=== PATIENT | female | born 1950 | race Caucasian/White ===

== ENCOUNTER 2020-08-16 12:04 | Outpatient (CLI) | payer MEDICARE, SELFPAY ==
[2020-08-16 08:26] LABS: EDCOVIDSCREEN Negative (Negative)
== END 2020-08-16 12:05 | disposition home or self-care (01) ==
LOC: ANHSURGERY 08-22 12:04
PROVIDERS: PCP Family Medicine; Visit Provider Urology
DX: Z01.812 Encounter for preprocedural laboratory examination (principal); Z20.822 Contact with and (suspected) exposure to COVID-19
CPT/HCPCS: 36415; 87426; C9803

== ENCOUNTER 2020-08-17 01:33 | Day surgery (SDC) | payer MEDICARE, SELFPAY ==
[2020-08-15 13:12] VITALS: BMI 23.8
--- NOTE | ~2020-08-17 | XR_ITS ---
EXAMINATION: XR abdomen/kub 1V DATE: 08/17/2020 10:26 INDICATION: Renal calculi. TECHNIQUE: A supine view of the abdomen on 2 radiographs was obtained. COMPARISON: None. FINDINGS: There is a large volume of stool in the colon. There are approximately 4 densities measurin g up to 5 mm overlying left kidney lower pole that may be stones. There is a 3 mm calcification in le ft pelvis. There is a phlebolith in right pelvis. IMPRESSION: 1. 3 mm calcification in left pelvis that may be a phlebolith or a stone at the left ureterovesicular junction. 2. Left kidney stones. Reviewed, dictated and finalized at location A.
--- NOTE | ~2020-08-17 | XR_ITS ---
EXAMINATION: XR retrograde pyelo w/stent LT DATE: 08/17/2020 11:40 INDICATION: Renal stone. Preop ESWL. TECHNIQUE: Fluoroscopic images from a left internal ureteral stent placement are submitted for review . 58 seconds of fluoroscopy time. FINDINGS: No prior studies for comparison. There is a left double-J internal ureteral stent projecting in expected position, with proximal Lilly loop at the level of the renal pelvis and distal loop in the pelvis within the bladder lumen. IMPRESSION: 1. Left internal ureteral stent placement. Please refer to real-time procedural findings for detail s. Reviewed, dictated and finalized at location B. IMPRESSION: 1. Left internal ureteral stent placement. Please refer to real-time procedur al findings for details.
[2020-08-17 08:55] VITALS: BP 141/62; PULSE 100; RESP 16; TEMP 36.3; O2SAT 97
[2020-08-17] MEDS: ACETAMINOPHEN 500 MG TABLET 1000 MG PO (09:18)
[2020-08-17] MEDS: LACTATED RINGERS 1,000 ML 30 ML IV CONT ×2 (09:35→11:41)
--- NOTE | 2020-08-17 09:52 | P.PNAN_ITS ---
Anes - Initial Pre Proc Eval Procedure: Operation Date: 08/17/20 10:45 Proposed Procedures p Cystoscopy, Left Retrograde Pyelogram, Left Ureteroscopy, with Stone Extraction, Left Stent Placement, - Isiah Delaney MD s Possible Holmium Laser Procedure - Isiah Delanye MD Date/Time: 08/17/20 09:52 Surgeon: Isiah Delaney MD Pre Op Diagnosis: ureteral calculus Patient Data Age: 70 Gender: F Height: 5 ft 8 in Weight: 70.4 kg Last Vital Signs Temp 36.3 C L 08/17/20 08:55 Pulse 100 08/17/20 08:55 Resp 16 08/17/20 08:55 BP 141/62 H 08/17/20 08:55 Pulse Ox 97 08/17/20 08:55 Allergies Allergy/AdvReac Type Severity Reaction Status Date / Time erythromycin base Allergy Intermediate Rash Verified 08/17/20 09:08 [From [employer]] Home Medications Medication Instructions Recorded Confirmed Type aspirin [Adult Aspirin EC Low 81 mg PO DAILY 08/15/20 08/17/20 History Strength] ciprofloxacin HCl 500 mg PO BID 08/15/20 08/17/20 History clonazepam 0.25 mg PO DAILY PRN 08/15/20 08/17/20 History lactobacillus combination no.8 3 cell PO DAILY 08/15/20 08/17/20 History [Adult Probiotic] montelukast 10 mg PO DAILY 08/15/20 08/17/20 History sulfasalazine 500 mg PO BID 08/15/20 08/17/20 History tamsulosin 0.4 mg PO DAILY 08/15/20 08/17/20 History trazodone 50 mg PO HS 08/15/20 08/17/20 History Patient hx anesthesia problems: none Family hx anesthesia problems: none PMFSH Past Medical History Medical History Anxiety Social History Social History Smoking status: Never smoker Alcohol intake: current Drinks per week: 2 Substance use: never Living arrangements: with family Additional living arrangements comments: HUSB Spiritual care concerns: No Anes - Eval Final PreProcedure Day of Procedure 08/17/20 09:52 Patient weight: normal Heart: regular rate and rhythm Lungs: clear to auscultation Airway: Mallampati scale class II Neurological: alert and oriented Last oral intake: >/= 8 hours ASA classification: II Emergent: no Anesthetic plan: proceed Anesthesia type and monitoring: general LMA and standard monitoring Informed Consent: The patient's anesthetic plan and its attendant risks and benefits were discussed with the patient/family/POA. Questions were solicited and answers provided to the satisfaction of the patient/family/POA.
--- NOTE | 2020-08-17 10:20 | SUR.PREOP ---
1020 taken to xray for kub
--- NOTE | 2020-08-17 10:40 | WPDHPUPDATE1 ---
History and Physical Update Update Date/Time: 08/17/20 10:40 History and Physical has been reviewed, including an updated exam of the patient. There are NO changes in the patient's condition. -patient with left distal ureteral stone as well as left renal stones. We will plan for left ureteroscopy, laser lithotripsy, stone extraction with possible stent insertion for the left distal ureteral stones. We will likely hold off on intervention for the left renal stones at this time. Risks, benefits, and alternatives have been discussed and questions answered. Patient agrees to proceed with procedure.
[2020-08-17] MEDS: ceFAZolin 2 GM/D5W 50 ML 2 GM/50 ML BAG IVPB (10:53)
[2020-08-17] MEDS: LIDOCAINE HCL 2% GEL UROJET 10 ML PKG MUCOUS MEM (11:34)
--- NOTE | 2020-08-17 11:37 | W.PM.PROC2 ---
Procedure Note - Detailed Date of Procedure 08/17/20 Pre-op Diagnosis ureteral calculus Post-op Diagnosis same Procedure Performed Cystoscopy, left ureteroscopy, retrograde pyelogram, stone extraction, stent insertion Surgeon Isiah Delaney MD Anesthesia general Findings -there was inflammation of the left ureteral orifice however no stone was seen in the left distal ureter -there was moderate hydronephrosis -for stones were removed from the left lower pole Description of Procedure Informed consents obtained. Patient taken the operating room. She was given preoperative IV antibiotics. She was induced anesthesia. She was placed in dorsal lithotomy position. We inserted a 22 F cystoscope through the original bladder insert the bladder there was inflammation of the left ureteral orifice consistent with presence of a stone or recent stone passage. we then advanced a wire and then a 10 coaxial dilator. We inserted a rigid ureteral scope into the distal ureter and there was no stone identified. We then switched to a flexible ureteral scope inspected the length of the ureter up to the kidney. No stones were seen in the ureter however identified multiple stones in the left lower pole. The stones were individually grasped and removed and sent as specimen. We then performed a retrograde pyelogram inspected each calyx under fluoroscopic guidance was no residual stone seen. We then inspected the length of the ureter and no stones were seen. We placed a 6 F variable length stent with a curl in renal pelvis from the bladder patient was then awakened taken recovery stable condition. -the patient will follow-up next week for ureteral stent removal -I recommend the patient undergo a renal ultrasound as well as a repeat cystoscopy in 1 to 2 months to ensure there is no hydronephrosis and to inspect the bladder to ensure that the inflammation around the left ureteral orifice has resolved. Drains No Packing No Pathology yes Complications No immediate complications Condition stable Disposition PACU
[2020-08-17 11:45] VITALS: BP 137/64; PULSE 81; RESP 16; TEMP 36.6; O2SAT 98
[2020-08-17 12:00] VITALS: BP 141/74; PULSE 72; RESP 16; O2SAT 98
[2020-08-17 12:15] VITALS: BP 143/69; PULSE 75; RESP 16; O2SAT 98
[2020-08-17 12:25] VITALS: BP 142/56; PULSE 64; RESP 14
[2020-08-17 12:55] VITALS: BP 137/57; PULSE 69; RESP 14
== END 2020-08-17 13:25 | disposition home or self-care (01) ==
PROVIDERS: PCP Family Medicine; Visit Provider Urology
PROC: (CPT 52352; principal; 2020-08-17 10:45)
DX: N20.1 Calculus of ureter (principal); F41.9 Anxiety disorder, unspecified; Z79.82 Long term (current) use of aspirin
CPT/HCPCS: 52332; 52352; 36415; 74018; 74420; 82365; 87426; 88300; A9270; C1769; C2617; C9803; J0690; J1100; J2405; J2704; J3010; J7120; Q9966

== ENCOUNTER → 2020-09-14 13:21 | Outpatient (CLI) | payer MEDICARE, SELFPAY ==
--- NOTE | ~2020-09-14 | DEXA_ITS ---
Bone Density Report Name: Kathryn Espitia Age: 70 Sex: Female Ethnicity: White Date of : 1950 Indication: postmenopausal; screening for osteoporosis; inflammatory bowel disease; prior fracture; hysterectomy; Referring Provider: AMY BOWSER Study: Bone densitometry was performed. Exam Date: September 14, 2020 Accession number: [id number] Bone Density: Region BMD T-score Z-score Classification AP Spine (L1, L2, L3) 0.762 -2.3 -0.4 Osteopenia Femoral Neck (Left) 0.616 -2.1 -0.4 Osteopenia Total Hip (Left) 0.655 -2.4 -1.0 Osteopenia Femoral Neck (Right) 0.552 -2.7 -1.0 Osteoporosis Total Hip (Right) 0.618 -2.7 -1.3 Osteoporosis Total Hip Mean 0.637 -2.6 -1.2 Osteoporosis World Health Organization criteria for BMD impression classify patients as: Normal (T-score at or above -1.0), Osteopenia (T-score between -1.0 and -2.5), or Osteoporosis (T-score at or below -2.5). 10-year Fracture Risk: FRAX not reported because: Some T-score for Spine Total or Hip Total or Femoral Neck at or below -2.5 Prior hip or vertebral fracture Clinical Information Provided by Patient: Have had a previous hip or vertebral fracture Has had a low trauma fracture Has used the following medications: Vitamin D, Calcium Has the following medical conditions: Inflammatory bowel diseases, Hysterectomy Patient maximum height was 68.5 Menopause Age: 33 Does not regularly consume dairy products Drinks caffeinated beverages Onset of menses at age 13 Number of children 2 Impression: The patient has established osteoporosis, based on the Right Total Hip T-score and the existence of a prior fracture. The patient has risk factors, including: previous fracture. Discussion: HIGH RISK OF FRACTURE. BONE DENSITY IS UNDESIRABLY LOW AT ONE OR MORE SKELETAL SITES, CONSISTENT WITH POSTMENOPAUSAL OSTEOPOROSIS. This patient's lowest T-score, in a patient who has previously fractured, meets the World Health Organization's (WHO) criteria for severe osteoporosis. In untreated patients, the risk of osteoporotic fracture increases approximately two-fold for each 1.0 SD decrease in T-score. Low bone density is not the only risk factor for fracture; also consider factors such as patient's age, frailty or poor health, risk of falling, risk of injury, previous osteoporotic fracture, family history of osteoporosis, cigarette smoking, low body weight, etc. Not everyone with low bone mineral density has osteoporosis; osteomalacia and other metabolic bone disorders should also be considered. Patients who have osteoporosis should be evaluated for specific diseases and conditions (secondary causes) that may cause or contribute to bone loss. The [place] [employer]ocrinologists (AACE) and National Osteoporosis Foundation (NOF) recommend pharmacologic
== END ==
PROVIDERS: PCP Family Medicine; Visit Provider Family Medicine
DX: Z78.0 Asymptomatic menopausal state (principal); M85.88 Other specified disorders of bone density and structure, other site; M85.852 Other specified disorders of bone density and structure, left thigh; M81.0 Age-related osteoporosis without current pathological fracture
CPT/HCPCS: 77080

== ENCOUNTER 2020-09-25 10:51 | Outpatient (CLI) | payer MEDICARE, SELFPAY ==
--- NOTE | ~2020-09-25 | XR_ITS ---
EXAMINATION: XR abdomen/kub 1V INDICATION: Left ureteral stone TECHNIQUE: Supine views of the abdomen were obtained on 2 radiographs. COMPARISON: 08/17/2020 FINDINGS: There is a stable 3 mm calcification in the left pelvis. Bowel contents project over the ki dneys limiting sensitivity for renal stones. The bowel gas pattern is normal. Described large stool t here are surgical changes at L4-5. IMPRESSION: 1. Unchanged 3 mm stone of the left pelvis, phlebolith versus left ureterovesicular junction stone. Reviewed, dictated and finalized at location B. IMPRESSION: 1. Unchanged 3 mm stone of the left pelvis, phlebolith versus left ureterovesic ular junction stone.
== END 2020-09-25 10:52 | disposition home or self-care (01) ==
PROVIDERS: PCP Family Medicine; Visit Provider Urology
DX: N20.1 Calculus of ureter (principal)
CPT/HCPCS: 74018

== ENCOUNTER 2021-03-04 14:31 | Outpatient (CLI) | payer MEDICARE, SELFPAY ==
--- NOTE | ~2021-03-04 | XR_ITS ---
EXAMINATION: XR abdomen/kub 1V INDICATION: Right flank pain TECHNIQUE: Supine views of the abdomen were obtained on 2 radiographs. COMPARISON: CT from today FINDINGS: There is a subtle 3 mm right pelvic calcification at the expected location of the right ure terovesicular junction. A phlebolith is noted in the left pelvis. The bowel gas pattern is normal. Th ere appear to be changes of prior pelvic fracture at the pubic symphysis. Changes of fusion procedure are noted at L4-5. A calcified nodule of the right lower lobe is consistent with old granulomatous d isease. IMPRESSION: 1. Subtle 3 mm calcification on the right pelvis at the expected location of the ureterovesicular merlin ction, likely corresponding to the stone identified on today's CT. Reviewed, dictated and finalized at location F. ERY HAND IMPRESSION: 1. Subtle 3 mm calcification on the right pelvis at the expected location of th e ureterovesicular junction, likely corresponding to the stone identified on to day's CT.
--- NOTE | ~2021-03-04 | CT_ITS ---
EXAMINATION: CT abdomen pelvis wo con DATE: 03/04/2021 15:00 INDICATION: Right flank pain TECHNIQUE: Computed tomography (CT) of the abdomen and pelvis was performed without intravenous contr ast. The dose-length product (DLP) was 325.89 mGy-cm. Automated exposure control and iterative recons truction technique were employed. COMPARISON: None FINDINGS: Minimal dependent atelectasis is present in the lung bases. The heart size is normal. Calci fied nodules of the visualized lower lobes are consistent with old granulomatous disease. The liver, spleen, pancreas, gallbladder, and adrenal glands are normal. There is a 3 mm stone at the right uret erovesicular junction which causes moderate right hydroureteronephrosis. The left kidney is unremarka ble. No pathologically enlarged abdominal or pelvic lymph nodes are identified. There is no free intr aperitoneal gas or evidence of bowel obstruction. Colonic diverticulosis is present without evidence of diverticulitis. The appendix is normal. Cysts of the left ovary measure up to 2.6 cm. IMPRESSION: 1. 3 mm stone at the right ureterovesicular junction causing moderate right hydroureteronephrosis. Reviewed, dictated and finalized at location F. 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 3 mm stone at the right ureterovesicular junction causing moderate right hyd roureteronephrosis.
== END 2021-03-04 14:32 | disposition home or self-care (01) ==
PROVIDERS: PCP Family Medicine; Visit Provider Nurse Practitioner Adult Health
DX: R10.9 Unspecified abdominal pain (principal); N20.1 Calculus of ureter
CPT/HCPCS: 74018; 74176

== ENCOUNTER 2021-03-06 00:41 | Day surgery (SDC) | payer MEDICARE, SELFPAY ==
[2021-03-05 09:50] VITALS: BMI 23.4
--- NOTE | 2021-03-05 09:55 | PC.NURSE ---
Report to the Outpatient Waiting Room, entrance under the green pavilion located off [facility], at time _1045 on date __03/06/21 . OR Time: ___1245 . - You and your visitor will be asked a series of questions to screen for COVID 19 for your protection. - A mask is required within the hospital. - Only one visitor is allowed at this time. Patient visitors will be guided where to wait when not with patient. Preoperative COVID Testing Requirements: No COVID Test needed if: (proof is required; if not received patient will have Rapid Test prior to entry) - Patient has received COVID Vaccine at least 14 days prior to procedure date or - Patient has positive COVID test result within last 90 days of surgery date. COVID Test needed if above criteria is not met If not COVID vaccinated a COVID test must be conducted within 72 hours of surgery and patient is asked to isolate self from time of testing until procedure. You will go to the [facility] for your COVID testing. The [facility] site is located at the corner of [address] [facility]. You will only be called if COVID results are positive and your surgeon may reschedule your elective surgery date. Patients may have clear liquids (water, carbonated beverages, clear teas, apple juice) until 3 hours prior to surgery with a maximum of 20 ounces. (0945 AM) - No food from midnight until time of surgery - Infants may have breast milk until 4 hours before surgery, formula 6 hours prior to surgery. - Children will be allowed to drink immediately following surgery. If applicable, please bring a bottle or sippy cup to assist with drinking. Juice, water, soda, and popsicles are readily available. For infants on formula, please bring formula the day of surgery. Pacifiers are allowed. Take the following medications with a SIP of water the morning of surgery: CLONAZEPAM Medications to discontinue per physician ALL VITAMINS AND SUPPLEMENTS Date to take last dose__03/05/21 Please no make-up, nail iranian, hairspray, perfume, deodorant, or body powder the day of surgery. No jewelry (including any body piercings) or valuables the day of surgery, leave them at home. Please take a shower or bath the night before, or the morning of, surgery with an antibacterial soap. Wear comfortable, loose fitting clothing. Children are encouraged to wear pajamas. - Jewelry must be removed prior to entering the operating room. Rings and piercings that are not removed may be cut off. - The hospital will not accept responsibility for valuables. - Please leave all valuables, including medications, at home the day of surgery. If you are going home after surgery, a licensed ice delivery driver must drive you home. - NO public transportation without another adult. - We recommend that an adult stay with you for 24 hours following discharge. - We also recommend that you do not drive, make important decision, drink alcoholic beverages, or take any drugs that were not prescribed by your health care provider for at least 24 hours after your discharge time. For Pediatric surgeries, we recommend two adults accompany the child home (only one inside the building at this time). Follow any additional instructions given to you from your surgeon. Telephone instructions given to ___PT and asked if any additional questions and then verbalized understanding. Patient advised to call surgeon office or pre surgery nurse liaison [phone] if any additional questions.
[2021-03-06] VITALS (7 sets, daily range): BP systolic 113–161; BP diastolic 50–71; PULSE 63–84; RESP 14–18; TEMP 36.8; O2SAT 96–100
--- NOTE | ~2021-03-06 | XR_ITS ---
EXAMINATION: XR fluoroscopy no charge EXAM DATE: 03/06/2021 13:54 INDICATION: Ureteroscopy With Right Side Stone Extract . TECHNIQUE: Fluoroscopy used during XR fluoroscopy no charge performed by Dr. Xavier Rizo MD. Radiologist was not present for the imaging or procedure. Total fluoroscopic time of 12 seconds. T he DAP for this procedure was 0.1 mGym2. A total of 6 images sent to PACS from the exam. FINDINGS: Images demonstrate cannulation of the right ureter and lumbar fusion hardware. Correlate with procedure note. IMPRESSION: Fluoroscopy used during right ureteral stone extraction. Reviewed, dictated and finalized at location A. 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
--- NOTE | 2021-03-06 10:47 | WPDANESEPPF ---
Anes - Initial Pre Proc Eval Procedure: Operation Date: 03/06/21 12:45 Proposed Procedures p Cystoscopy, Ureteroscopy, Right Retrograde Pyelogram, with Stone Extraction, Possible Stent Placement, - Xavier Rizo MD s Possible Holmium Laser Procedure - Xavier Rizo MD <Boyd Wilson MD - Last Filed: 03/10/21 15:36> Date/Time: 03/06/21 10:47 <Boyd Wilson MD - Last Filed: 03/10/21 15:36> Surgeon: Xavier Rizo MD <Boyd Wilson MD - Last Filed: 03/10/21 15:36> Pre Op Diagnosis: right ureteral stone <Boyd Wilson MD - Last Filed: 03/10/21 15:36> Patient Data Age: 70 Gender: F Height: 1.73 m Weight: 70 kg <Boyd Wilson MD - Last Filed: 03/10/21 15:36> Allergies Allergy/AdvReac Type Severity Reaction Status Date / Time erythromycin base Allergy Intermediate Rash Verified 03/06/21 12:11 [From Ilosone] <Boyd Wilson MD - Last Filed: 03/10/21 15:36> Home Medications Medication Instructions Recorded Confirmed Type aspirin 81 mg PO HS 08/15/20 03/06/21 History ciprofloxacin HCl 500 mg PO BID 08/15/20 03/05/21 History clonazepam 0.25 mg PO DAILY PRN 08/15/20 03/06/21 History lactobacillus combination no.8 3 cell PO DAILY 08/15/20 03/05/21 History sulfasalazine 500 mg PO QAM 08/15/20 03/05/21 History tamsulosin 0.4 mg PO DAILY PRN 08/15/20 03/05/21 History trazodone 25 mg PO HS PRN 08/15/20 03/05/21 History alendronate 70 mg PO WEEKLY 03/05/21 03/05/21 History calcium carbonate-vitamin D2 1 tablet PO QAM 03/05/21 03/05/21 History elderberry fruit 200 mg PO QAM 03/05/21 03/05/21 History levocetirizine 5 mg PO QAM 03/05/21 03/05/21 History multivitamin 1 tablet PO DAILY 03/05/21 03/06/21 History cephalexin 500 mg PO Q8H #9 cap 03/06/21 Rx hydrocodone-acetaminophen 1 - 2 tablet PO Q6H PRN #20 tablet 03/06/21 Rx <Body Wilson MD - Last Filed: 03/10/21 15:36> Patient hx anesthesia problems: none <Manjinder Roche DO - Last Filed: 03/06/21 12:09> Family hx anesthesia problems: none <Manjinder Roche DO - Last Filed: 03/06/21 12:09> Results Review: All pre-operative results and documents have been reviewed as part of the pre-operative evaluation. <Boyd Wilson MD - Last Filed: 03/10/21 15:36> PMFSH Past Medical History Medical History: Medical History Anxiety <Boyd Wilson MD - Last Filed: 03/10/21 15:36> Social History Social History: Social History Smoking status: Former smoker Second hand tobacco smoke exposure: No Alcohol intake: current Drinks per week: 2 Substance use: never Substance use type: does not use Living arrangements: with family Additional living arrangements comments: HUSB Spiritual care concerns: No <Boyd Wilson MD - Last Filed: 03/10/21 15:36> Anes - Eval Final PreProcedure Day of Procedure 03/06/21 10:47 <Boyd Wilson MD - Last Filed: 03/10/21 15:36> Patient weight: normal <Boyd Wilson MD - Last Filed: 03/10/21 15:36> Heart: regular rate and rhythm <Boyd Wilson MD - Last Filed: 03/10/21 15:36> Lungs: clear to auscultation and normal air movement <Boyd Wilson MD - Last Filed: 03/10/21 15:36> Airway: Mallampati scale class II <Boyd Wilson MD - Last Filed: 03/10/21 15:36> Neurological: alert and oriented <Boyd Wilson MD - Last Filed: 03/10/21 15:36> Last oral intake: >/= 8 hours <Boyd Wilson MD - Last Filed: 03/10/21 15:36> ASA classification: II <Boyd Wilson MD - Last Filed: 03/10/21 15:36> Emergent: no <Boyd Wilson MD - Last Filed: 03/10/21 15:36> Anesthetic plan: proceed <Boyd Wilson MD - Last Filed: 03/10/21 15:36> Anesthesia type and monitoring: general LMA <We
[2021-03-06] MEDS: LACTATED RINGERS 1,000 ML 30 ML IV CONT (11:30)
--- NOTE | 2021-03-06 12:23 | WPDHPUPDATE1 ---
History and Physical Update Update Date/Time: 03/06/21 12:23 History and Physical has been reviewed, including an updated exam of the patient. There are NO changes in the patient's condition. Risks, benefits, and alternatives have been discussed and questions answered. Patient agrees to proceed with procedure.
[2021-03-06] MEDS: ceFAZolin 2 GM/D5W 50 ML 2 GM/50 ML BAG IVPB (13:27)
[2021-03-06] MEDS: KETOROLAC 30 MG/ML VIAL (*BKC) IV PUSH (13:49)
[2021-03-06] MEDS: LIDOCAINE HCL 2% GEL UROJET 10 ML PKG MUCOUS MEM (13:50)
--- NOTE | 2021-03-06 14:00 | W.PM.PROC2 ---
Procedure Note - Detailed Date of Procedure 03/06/21 Pre-op Diagnosis Right ureteral stone Post-op Diagnosis same Procedure Performed Cysto. right ureteroscopy with stone extraction Surgeon Xavier Rizo MD Anesthesia general Description of Procedure The patient was brought to the operative suite where she is prepped and draped in a routine sterile fashion while in the dorsal lithotomy position after the uneventful induction of a general LMA anesthetic. A 19F rigid cystoscope was placed in the bladder. The patient had no evidence of urethral stricture or bladder neck contracture. The bladder mucosa was endoscopically normal without hyperemia or neoplasm. There was a single, orthotopic ureteral orifice bilaterally. A 0.035 glidewire was advanced into the right renal pelvis under fluoroscopy. The distal ureter was dilated with an 8F/10F ureteral dilator. Ureteroscopy was undertaken with a short, tapered, semi-rigid ureteroscope and the stone was extracted with ease using a 1.9F Escape disposable stone basket. Due to the ease of this manipulation I opted not to place a ureteral stent. The patient's bladder was emptied and was taken to the recovery room having tolerated this procedure well. Estimated Blood Loss 0 Drains No Packing No Pathology yes Complications No immediate complications Condition stable Disposition PACU
--- NOTE | 2021-03-06 15:23 | SUR.PHASEII ---
DR. PURCELL INSTRUCTED FOR PATIENT TO CONTINUE CIPRO AND NOT TO FILL CEPHALEXIN SCRIPT.
== END 2021-03-06 15:30 | disposition home or self-care (01) ==
PROVIDERS: PCP Family Medicine; Visit Provider Urology
PROC: (CPT 52352; principal; 2021-03-06 12:45)
DX: N20.1 Calculus of ureter (principal); F41.9 Anxiety disorder, unspecified; Z79.82 Long term (current) use of aspirin; Z87.891 Personal history of nicotine dependence
CPT/HCPCS: 52352; 82365; 88300; A9270; C1769; J0690; J1100; J1170; J1885; J2250; J2405; J2704; J7120; Q9966

== ENCOUNTER → 2021-08-22 13:31 | Outpatient (CLI) | payer MEDICARE, SELFPAY ==
--- NOTE | ~2021-08-22 | XR_ITS ---
XR foot RT min 3V DATE: 08/22/2021 14:01 INDICATION: Right foot pain TECHNIQUE: 4 views COMPARISON: None FINDINGS: There is diffuse osteopenia. Slight plantar calcaneal enthesopathy. Degenerative changes at the tarsometatarsal joints. Hallux valgus and bunion deformity. There is mild osteoarthritis at the first metatarsophalangeal junito nt. Hammertoe deformities. No fracture or dislocation, periosteal reaction or bone destruction is detected. IMPRESSION: Osteopenia Polyarticular osteoarthritis Hallux valgus and bunion deformity Hammertoe deformities Reviewed, dictated and finalized at location A.
== END ==
PROVIDERS: PCP Family Medicine; Visit Provider Family Medicine
DX: M79.671 Pain in right foot (principal)
CPT/HCPCS: 73630

== ENCOUNTER → 2021-11-04 14:06 | Outpatient (CLI) | payer MEDICARE, SELFPAY ==
--- NOTE | ~2021-11-04 | XR_ITS ---
EXAM: XR abdomen/kub 1V DATE: 11/04/2021 14:33 HISTORY: Calculus of ureter . COMPARISON: 03/04/2021. FINDINGS: Calcified right lower lobe nodule. Normal bowel gas pattern. No organomegaly. Pelvic phleb oliths. Apparent osseous fusion between L5 and S1. Posterior and lateral hardware fusion L4-5. IMPRESSION: No radiographic evidence of nephrolithiasis. Reviewed, dictated and finalized at location K.
== END ==
PROVIDERS: PCP Family Medicine; Visit Provider Nurse Practitioner Adult Health
DX: N20.1 Calculus of ureter (principal)
CPT/HCPCS: 74018

== ENCOUNTER 2021-11-15 01:16 | Day surgery (SDC) | payer MEDICARE, SELFPAY ==
[2021-11-06 14:45] VITALS: BMI 25.1
--- NOTE | 2021-11-06 15:05 | PC.NURSE ---
Report to the Outpatient Waiting Room, entrance under the green pavilion located off [facility], at time ___30____ on date __11/15/21 . OR Time: ____929____. - You and your visitor will be asked to self-screen and do not enter if you have any COVID symptoms. - Only one visitor and NO children visitors are allowed at this time. - The patient visitor is requested to leave or wait in car when not with patient due to restrictions. - A mask is required within the hospital. Patients may have clear liquids (water, carbonated beverages, clear teas, apple juice) until 3 hours prior to surgery (0630 AM) with a maximum of 20 ounces. - No food from midnight until time of surgery - Infants may have breast milk until 4 hours before surgery, infant formula 6 hours prior to surgery. - Children will be allowed to drink immediately following surgery. If applicable, please bring a bottle or sippy cup to assist with drinking. Juice, water, soda, and popsicles are readily available. For infants on formula, please bring formula the day of surgery. Pacifiers are allowed. Take the following medications with a SIP of water the morning of surgery: BUSPIRONE Medications to discontinue per DR. REBOLLEDO - _PT STATES TO STOP ASPIRIN 11/07/21_ Medications to discontinue per ANESTHESIA - _VITAMINS/PROBIOTIC/SUPPLEMENTS 3 DAYS PRIOR TO SURGERY, Date to take last dose 11/11/21___ Please no make-up, nail lao, hairspray, perfume, deodorant, or body powder the day of surgery. No jewelry (including any body piercings) or valuables the day of surgery, leave them at home. Please take a shower or bath the night before, or the morning of, surgery with an antibacterial soap. Wear comfortable, loose fitting clothing. Children are encouraged to wear pajamas. - Jewelry must be removed prior to entering the operating room. Rings and piercings that are not removed may be cut off. - The hospital will not accept responsibility for valuables. - Please leave all valuables, including medications, at home the day of surgery. If you are going home after surgery, a licensed cement mixer driver must drive you home. - NO public transportation without another adult. - We recommend that an adult stay with you for 24 hours following discharge. - We also recommend that you do not drive, make important decision, drink alcoholic beverages, or take any drugs that were not prescribed by your health care provider for at least 24 hours after your discharge time. For Pediatric surgeries, we recommend two adults accompany the child home (only one inside the building at this time). Follow any additional instructions given to you from your surgeon. If you or anyone in your household have experienced Covid symptoms in the past week, please notify your surgeon or the nurse liaison at the phone number below for possible testing. Telephone instructions given to ____PT and asked if any additional questions and then verbalized understanding. Patient advised to call surgeon office or pre surgery nurse liaison [phone] if any additional questions.
--- NOTE | ~2021-11-15 | XR_ITS ---
EXAMINATION: XR surgery orthopedic DATE: 11/15/2021 07:57 INDICATION: Right foot surgery TECHNIQUE: Single lateral fluoroscopic image of the right midfoot was obtained during procedure perfo rmed by Dr. Forde. Radiologist was not present for the imaging or procedure. The amount of fluoros copy time used during this procedure was 0.1 minutes. COMPARISON: 08/22/2021 FINDINGS: Osteopenia. Alignment is normal. No evident fracture. Moderate polyarticular osteoarthritis throughou t the midfoot. IMPRESSION: 1. 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 Reviewed, dictated and finalized at location A.
[2021-11-15 06:20] VITALS: BP 136/78; PULSE 76; RESP 16; TEMP 36.7; O2SAT 96
[2021-11-15] MEDS: LACTATED RINGERS 1,000 ML 30 ML IV CONT (06:30)
--- NOTE | 2021-11-15 07:11 | WPDANESEPPF ---
Anes - Initial Pre Proc Eval Procedure: Operation Date: 11/15/21 07:30 Proposed Procedures p Exostectomy Right Foot - Spencer Forde JR, MD Date/Time: 11/15/21 07:11 Surgeon: Spencer Forde JR, MD Pre Op Diagnosis: painful bone spur right foot Patient Data Age: 71 Gender: F Height: 1.73 m Weight: 75 kg Last Vital Signs Temp 36.7 C 11/15/21 06:20 Pulse 76 11/15/21 06:20 Resp 16 11/15/21 06:20 BP 136/78 11/15/21 06:20 Pulse Ox 96 11/15/21 06:20 O2 Del Method Room Air 11/15/21 06:20 Allergies Allergy/AdvReac Type Severity Reaction Status Date / Time erythromycin base Allergy Intermediate Rash Verified 11/15/21 06:17 [From Ilosone] Home Medications Medication Instructions Recorded Confirmed Type aspirin 81 mg tablet,delayed 81 mg PO HS 08/15/20 11/15/21 History release lactobacillus combination no.8 3 3 cell PO DAILY 08/15/20 11/15/21 History billion cell capsule sulfasalazine 500 mg tablet 500 mg PO QAM 08/15/20 11/15/21 History trazodone 50 mg tablet 25 mg PO HS PRN Sleep 08/15/20 11/15/21 History alendronate 70 mg tablet 70 mg PO WEEKLY 03/05/21 11/15/21 History calcium carb-ergocalciferol (vit 1 tablet PO QAM 03/05/21 11/15/21 History D2) 600 mg calcium-200 unit tablet elderberry fruit 200 mg capsule 200 mg PO QAM 03/05/21 11/15/21 History levocetirizine 5 mg tablet 5 mg PO QAM 03/05/21 11/15/21 History multivitamin 1 tablet PO DAILY 03/05/21 11/15/21 History buspirone 5 mg tablet 5 mg BID-TID PRN Anxiety 11/06/21 11/15/21 History cranberry 1 cap QAM 11/06/21 11/15/21 History Patient hx anesthesia problems: none Family hx anesthesia problems: none Results Review: All pre-operative results and documents have been reviewed as part of the pre-operative evaluation. [facility] Past Medical History Medical History Anxiety Arthritis Social History Social History Smoking status: Never smoker Second hand tobacco smoke exposure: No Alcohol intake: current Drinks per week: 3 Substance use: never Substance use type: does not use Living arrangements: with family Additional living arrangements comments: HUSB Spiritual care concerns: No Anes - Eval Final PreProcedure Day of Procedure 11/15/21 07:11 Patient weight: normal Heart: regular rate and rhythm Lungs: clear to auscultation Airway: Mallampati scale class 1 Neurological: alert and oriented Last oral intake: >/= 8 hours ASA classification: II Emergent: no Anesthetic plan: proceed Anesthesia type and monitoring: general GIVS and standard monitoring Results Review: All pre-operative results and documents have been reviewed as part of the pre-operative evaluation. Informed Consent: The patient's anesthetic plan and its attendant risks and benefits were discussed with the patient/family/POA. Questions were solicited and answers provided to the satisfaction of the patient/family/POA.
--- NOTE | 2021-11-15 07:13 | WPDHPUPDATE1 ---
History and Physical Update Update Date/Time: 11/15/21 07:13 History and Physical has been reviewed, including an updated exam of the patient. There are NO changes in the patient's condition. Risks, benefits, and alternatives have been discussed and questions answered. Patient agrees to proceed with procedure.
[2021-11-15] MEDS: ceFAZolin 2 GM/D5W 50 ML 2 GM/50 ML BAG IVPB (07:21)
[2021-11-15] MEDS: LIDOCAINE HCL 2% PF INJ 5 ML VIAL 20 ML INFILTRATE (07:46)
[2021-11-15 08:05] VITALS: BP 110/57; PULSE 68; RESP 12; O2SAT 97
--- NOTE | 2021-11-15 08:18 | W.PM.PROC2 ---
Procedure Note - Detailed Date of Procedure 11/15/21 Pre-op Diagnosis Painful bone spur right foot Post-op Diagnosis Same Procedure Performed Dorsal midfoot exostectomy right foot Surgeon Spencer Forde JR, DPM Anesthesia MAC and Local Indications Pain to the dorsal midfoot secondary to a large prominent exostosis Description of Procedure PROCEDURE IN DETAIL:? Under mild sedation, the patient was brought into the operating room, placed on the operating table in supine position.? A pneumatic ankle tourniquet was placed about the patient's affected ankle.? Following monitored anesthesia care a local anesthetic block was obtained about the? foot and ankle utilizing 20 cc of a 1:1 of 2% Lidocaine plain and 0.5% Marcaine plain. The foot was then scrubbed, prepped, and draped in the usual aseptic manner.? An Esmarch bandage was then used to exsanguinate the patient's? foot and the pneumatic ankle tourniquet was then inflated. ? Surgery began in the following manner:? Attention was directed to the dorsal aspect of the 1st tarsometatarsal joint where there was a large prominent osteophyte.? The incision was made starting along the base of the 1st metatarsal and extending to the body of the medial cuneiform. The incision was continued deep down through the subcutaneous tissues using sharp and blunt dissection.? All bleeders were cauterized as necessary.? At this point, the dissection was continued down to the level of the periosteum and capsular structures overlying the 1st tarsal metatarsal joint.? A full length periosteum and capsular incision was made just medial to the extensor hallucis longus tendon.? The periosteum and capsular structures were freed from the large prominent osteophyte.? An osteotome and mallet were used to resect the large exostosis.? Next, a rongeur was used to resect any remaining sharp osseous remnants. A hernandez rasp was used to further debride and remodel the dorsal and dorsal medial aspect of the first tarsal metatarsal joint. Moreover, the wound site was then flushed with copious amounts of sterile saline.? Fluoroscopy was used to make certain that adequate resection of the osseous proliferation was performed.? Next, the periosteum and capsular structures were reapproximated with 4-0 Vicryl.? Next, the subcutaneous structures were reapproximated with 4-0 Vicryl.? Next, the skin was reapproximated and coapted utilizing 4-0 Monocryl in running subcuticular suture fashion technique. ? Upon completion of the procedure, the incision was dressed with Steri-Strips, Adaptic, 4x4s, Kerlix, and Coban.? The pneumatic ankle tourniquet was then deflated and a prompt hyperemic response was noted to all digits of the foot.? A surgical shoe was then applied to the affected lower extremity.? It is important to note that I, Dr. Forde was present throughout the procedure. ? The patient did very well with the procedure and the anesthesia.? The patient was transferred to the recovery room with vital signs stable and vascular status intact to all toes of the foot.? Following a period of postoperative monitoring, the patient will be discharged home on the following written and oral postoperative instructions: 1. Keep the dressing clean, dry, and intact. 2. The patient to be protected weight bearing with a surgical shoe. 3. The patient should ice and elevate the affected foot when at rest. 4. The patient should contact Dr. Forde for all postop care and if any problems should arise. She will follow up in one week for her post op visit. 5. Prescriptions were written for Percocet 5/325, dispensed 40 to be taken 1 p.o. q.4-6 hours as needed for severe pain.? Furthermore, the patient should take Aspirin 325 once daily for two weeks to prevent DVT. Implants None Estimated Blood Loss -1.0 Complications No immediate complications Condition Stable Disposition Same day
[2021-11-15 08:40] VITALS: BP 123/63; PULSE 60; RESP 16; O2SAT 100
[2021-11-15 09:15] VITALS: BP 135/66; PULSE 70; RESP 16
[2021-11-15 09:45] VITALS: BP 124/58; PULSE 66; RESP 16
== END 2021-11-15 10:10 | disposition home or self-care (01) ==
PROVIDERS: PCP Family Medicine; Visit Provider Podiatrist Foot & Ankle Surgery
PROC: (CPT 28122; principal; 2021-11-15 07:30)
DX: M77.8 Other enthesopathies, not elsewhere classified (principal); M89.9 Disorder of bone, unspecified; I10 Essential (primary) hypertension; M21.371 Foot drop, right foot; E78.00 Pure hypercholesterolemia, unspecified; M19.071 Primary osteoarthritis, right ankle and foot; Z79.82 Long term (current) use of aspirin; F41.9 Anxiety disorder, unspecified; M19.90 Unspecified osteoarthritis, unspecified site
CPT/HCPCS: 28122; 99199; J0690; J2250; J2270; J2704; J7120

== ENCOUNTER 2022-11-03 10:42 | Emergency (ER) | payer MEDICARE, SELFPAY ==
--- NOTE | 2022-11-03 10:54 | ED.URI ---
HPI - URI/Sore Throat General Chief Complaint: Upper Respiratory Infection Stated Complaint: Sinus infection symptoms Time Seen by Provider: 11/03/22 11:10 Source: patient, RN notes reviewed and old records reviewed Mode of arrival: ambulatory Limitations: no limitations History of Present Illness HPI Narrative: 72-year-old female presents to the [facility] with complaints of a sinus infection. Patient reports that she recently traveled to [place]. Symptoms started 8 days ago. Patient complains of frontal headache, sinus pressure, congestion, sore throat. Reports of productive cough with yellow phlegm. Sneezing. Related Data Home Medications Medication Instructions Recorded Confirmed aspirin 81 mg tablet,delayed 81 mg PO HS 08/15/20 11/03/22 release lactobacillus combination no.8 3 3 cell PO DAILY 08/15/20 11/03/22 billion cell capsule sulfasalazine 500 mg tablet 500 mg PO QAM 08/15/20 11/03/22 trazodone 50 mg tablet 25 mg PO HS PRN Sleep 08/15/20 11/03/22 alendronate 70 mg tablet 70 mg PO WEEKLY 03/05/21 11/03/22 calcium carb-ergocalciferol (vit 1 tablet PO QAM 03/05/21 11/03/22 D2) 600 mg calcium-200 unit tablet elderberry fruit 200 mg capsule 200 mg PO QAM 03/05/21 11/03/22 levocetirizine 5 mg tablet 5 mg PO QAM 03/05/21 11/03/22 multivitamin 1 tablet PO DAILY 03/05/21 11/03/22 buspirone 5 mg tablet 5 mg BID-TID PRN Anxiety 11/06/21 11/03/22 cranberry 1 cap QAM 11/06/21 11/03/22 Allergies Allergy/AdvReac Type Severity Reaction Status Date / Time erythromycin base Allergy Intermediate Rash Verified 11/03/22 11:18 [From Reality JockeyosAUTOFACT] Review of Systems Review of Systems: All systems reviewed & are unremarkable except as noted in HPI and below Constitutional: Constitutional: Reports no additional constitutional complaints Eyes: Eyes: Reports no additional eye complaints ENT: Reports as per HPI, Reports nasal congestion and Reports sinus pressure Cardiovascular: Cardiovascular: Reports no additional cardiovascular complaints, Denies chest pain and Denies dyspnea Respiratory: Respiratory: Reports no additional respiratory complaints, Denies chest congestion, Denies cough and Denies dyspnea Gastrointestinal: Gastrointestinal: Reports no additional gastrointestinal complaints, Denies abdominal pain, Denies nausea and Denies vomiting Musculoskeletal: Musculoskeletal: Reports no additional musculoskeletal complaints Integumentary/Breasts: Skin/Breast: Reports system reviewed and no additional complaints, except as docu Neurologic: Reports system reviewed and no additional complaints, except as documented Psychiatric: Psychiatric: Reports no additional psychiatric complaints Allergic/Immunologic: Allergic/Immunologic: Reports no additional allergic/immunologic complaints PMF Past Medical History Medical History Anxiety Arthritis Social History Social History Smoking status: Never smoker Second hand tobacco smoke exposure: No Alcohol intake: current Drinks per week: 3 Substance use: never Substance use type: does not use Living arrangements: with family Additional living arrangements comments: HUSB Gender identity (if verbalized by the patient): Female Sexual Orientation (if Verbalized by the Patient): Straight or Heterosexual Spiritual care concerns: No Comments At the time of my signature, I reviewed and agree with the nursing past medical, surgical, social, and family history. There is no relevant family history pertinent to the patient complaint. Exam Const: General: cooperative, healthy appearing, comfortable, no acute distress, well developed, alert and well nourished Nutritional Appearance: well nourished Orientation/consciousness: patient oriented x3 Limitations: no limitations HENMT: Head: normal to inspection Ears: hearing grossly normal bilater
[2022-11-03 10:55] VITALS: BP 153/86; PULSE 68; RESP 16; TEMP 36.9; O2SAT 98
== END 2022-11-03 11:25 | disposition home or self-care (01) ==
PROVIDERS: Emergency Provider Nurse Practitioner; PCP Family Medicine
DX: J32.9 Chronic sinusitis, unspecified (principal); M19.90 Unspecified osteoarthritis, unspecified site; F41.9 Anxiety disorder, unspecified; Z79.82 Long term (current) use of aspirin
CPT/HCPCS: 99213; G0463

== ENCOUNTER → 2022-11-25 10:05 | Outpatient (CLI) | payer MEDICARE, SELFPAY ==
--- NOTE | ~2022-11-25 | XR_ITS ---
XR abdomen/kub 1V 11/25/2022 10:17 Indication: Right ureteral stone follow-up Procedure: KUB Comparison: 11/04/2021 Findings: There are multiple radiodensities overlying the abdomen, likely bowel content. No definite renal/ureteral stones are visualized. There is surgical fusion changes at L4-5. Lung bases unremarkab le. No acute osseous abnormality. Nonobstructive bowel pattern. Impression: 1: No acute abdominal abnormality. Reviewed, dictated and finalized at location A. Impression: 1: No acute abdominal abnormality.
== END ==
PROVIDERS: PCP Family Medicine; Visit Provider Urology
DX: N20.1 Calculus of ureter (principal)
CPT/HCPCS: 74018

== ENCOUNTER → 2023-02-23 09:53 | Outpatient (CLI) | payer MEDICARE, SELFPAY ==
--- NOTE | ~2023-02-23 | MM_ITS ---
EXAMINATION: MM screening cassandra BI w srini HISTORY: Screening mammogram TECHNIQUE: Craniocaudal and mediolateral oblique 3-D tomosynthesis images were obtained and synthetic 2-D images were generated. CAD analysis was submitted and interpreted. COMPARISON: No prior mammogram is available for comparison at this institution. BREAST PARENCHYMAL COMPOSITION: There are scattered areas of fibroglandular density. FINDINGS: There is focal irregular asymmetric increased density in the posterior outer left breast on CC projection. Diagnostic left mammogram is recommended, with ultrasound if required. There is a biopsy marker on the left. History of prior benign left breast biopsy. Occasional benign calcifications are noted, primarily on the left. No suspicious mass, architectural distortion, malignant calcification, skin thickening or retraction of either breast is noted otherwise. IMPRESSION: 1. Focal asymmetric irregular density in the posterior outer left breast on screening CC view 2. Diagnostic left mammogram is recommended, with ultrasound if required BI-RADS Category 0: Incomplete: Needs additional imaging evaluation. Reviewed, dictated and finalized at location A. GE MECHANIC IMPRESSION: 1. Focal asymmetric irregular density in the posterior outer left breast on scr eening CC view 2. Diagnostic left mammogram is recommended, with ultrasound if required BI-RADS Category 0: Incomplete: Needs additional imaging evaluation.
== END ==
PROVIDERS: PCP Family Medicine; Visit Provider Family Medicine
DX: Z12.31 Encounter for screening mammogram for malignant neoplasm of breast (principal); R92.8 Other abnormal and inconclusive findings on diagnostic imaging of breast
CPT/HCPCS: 77063; 77067

== ENCOUNTER → 2023-04-08 08:41 | Outpatient (CLI) | payer MEDICARE, SELFPAY ==
--- NOTE | ~2023-04-08 | MMUS_ITS ---
EXAMINATION: MM diagnostic cassandra LT w srini, US breast LT limited HISTORY: Follow-up left breast mass TECHNIQUE: Additional 3-D tomosynthesis images of the left breast were performed and synthetic 2-D im ages were generated. CAD analysis was submitted and interpreted. High resolution Limited left breast ultrasound was performed. COMPARISON: 02/23/2023 BREAST PARENCHYMAL COMPOSITION: Breast composed of scattered areas of fibroglandular density FINDINGS: MAMMOGRAPHIC FINDINGS: There is a persistent circumscribed mass in the upper outer quadrant of the left breast. No suspiciou s calcifications or architectural distortion. There are clustered indeterminate calcifications in the upper outer quadrant of the left breast which have increased in number compared with prior study. ULTRASOUND: Limited left breast ultrasound: At 3:00, 2.5 cm from the nipple, there is an oval hypoechoic 4 mm mas s with posterior acoustic enhancement and no internal vascularity, likely a complicated cyst. IMPRESSION: 1. Increasing cluster of indeterminate calcifications upper outer quadrant of the left breast, likely benign.Probable benign sonographic left breast mass. BI-RADS CATEGORY 3-PROBABLY BENIGN FINDING RECOMMENDATION: Six-month follow-up diagnostic left mammogram and ultrasound recommended. Reviewed, dictated and finalized at location A. NICAL SALES ENGINEER IMPRESSION: 1. Increasing cluster of indeterminate calcifications upper outer quadrant of t he left breast, likely benign.Probable benign sonographic left breast mass. BI-RADS CATEGORY 3-PROBABLY BENIGN FINDING RECOMMENDATION: Six-month follow-up diagnostic left mammogram and ultrasound re commended.
== END ==
PROVIDERS: PCP Family Medicine; Visit Provider Family Medicine
DX: R92.8 Other abnormal and inconclusive findings on diagnostic imaging of breast (principal)
CPT/HCPCS: 76642; 77061; 77065; G0279

== ENCOUNTER → 2023-04-20 08:44 | Outpatient (CLI) | payer MEDICARE, SELFPAY ==
--- NOTE | ~2023-04-20 | DEXA_ITS ---
Bone Density Report Name: TALON WOO Age: 72 Sex: Female Ethnicity: White Date of : 1950 Indication: postmenopausal osteoporosis; inflammatory bowel disease; prior fracture; hysterectomy; Referring Provider: AMY BOWSER Study: Bone densitometry was performed. Exam Date: April 20, 2023 Accession number: [id number] Bone Density: Region BMD T-score Z-score Classification AP Spine (L1, L2, L3) 0.866 -1.4 0.7 Osteopenia Femoral Neck (Left) 0.592 -2.3 -0.5 Osteopenia Total Hip (Left) 0.630 -2.6 -1.0 Osteoporosis Femoral Neck (Right) 0.556 -2.6 -0.8 Osteoporosis Total Hip (Right) 0.619 -2.6 -1.1 Osteoporosis Total Hip Mean 0.625 -2.6 -1.1 Osteoporosis World Health Organization criteria for BMD impression classify patients as: Normal (T-score at or above -1.0), Osteopenia (T-score between -1.0 and -2.5), or Osteoporosis (T-score at or below -2.5). 10-year Fracture Risk: FRAX not reported because: Some T-score for Spine Total or Hip Total or Femoral Neck at or below -2.5 Prior hip or vertebral fracture Previous Exams: Region Exam Age BMD T-score BMD Change BMD Change Date g/cm2 vs Baseline vs Previous AP Spine(L1, L2, L3) 04/20/2023 72 0.866 -1.4 0.104* 0.104* 09/14/2020 70 0.762 -2.3 Total Hip(Left) 04/20/2023 72 0.630 -2.6 -0.025 -0.025 09/14/2020 70 0.655 -2.4 Total Hip(Right) 04/20/2023 72 0.619 -2.6 0.001 0.001 09/14/2020 70 0.618 -2.7 *Denotes significance at 95% confidence level, LSC for AP Spine = 0.022 g/cm2, LSC for Total Hip = 0.027 g/cm2 Clinical Information Provided by Patient: Have had a previous hip or vertebral fracture Has had a low trauma fracture Has used the following medications: Fosamax (i.e. alendronate), Vitamin D, Calcium Has the following medical conditions: Inflammatory bowel diseases, Hysterectomy, CHOLITIS Patient maximum height was 68.5 Menopause Age: 33 Does not regularly consume dairy products Drinks caffeinated beverages Onset of menses at age 13 Number of children 2 Impression: The patient has established osteoporosis, based on the Left Total Hip T-score and the existence of a prior fracture. The patient has risk factors, including: previous fracture. No significant bone loss was observed. Discussion: HIGH RISK OF FRACTURE. BONE DENSITY IS UNDESIRABLY LOW AT ONE OR MORE SKELETAL SITES, CONSISTENT WITH POSTMENOPAUSAL OSTEOP
== END ==
PROVIDERS: PCP Family Medicine; Visit Provider Family Medicine
DX: Z78.0 Asymptomatic menopausal state (principal); M85.88 Other specified disorders of bone density and structure, other site; M85.852 Other specified disorders of bone density and structure, left thigh; M81.0 Age-related osteoporosis without current pathological fracture
CPT/HCPCS: 77080

== ENCOUNTER 2023-06-04 11:56 | Outpatient (CLI) | payer MEDICARE, SELFPAY ==
--- NOTE | ~2023-06-04 | MM_ITS ---
EXAMINATION: MM stereotactic bx LT, MM post biopsy diagnostic LT, MM stereotactic specimen LT, Specim en Radiograph, Tissue Marker Clip Placement, Unilateral Mammogram DATE: 06/04/2023 13:41 (accession [id number]), 06/04/2023 13:43 (accession [id number]), 06/03 13:43 (accession [id number]) INDICATION: Abnormal mammogram: Cluster of increasing number of indeterminate calcifications, upper o uter quadrant left breast. TECHNIQUE AND FINDINGS: The risks and potential benefits of the procedure were discussed with the patient and written informe d consent was obtained. Timeout procedure was performed. The patient was placed in the prone position on the dedicated stereotactic table with the left breast in lateral medial compression, and the area of interest was localized and targeted utilizing digital imaging with stereotaxis. After sterile preparation of the skin, 1% lidocaine was utilized for local anesthesia at the skin pun cture site and 1% lidocaine with epinephrine was utilized for deeper local anesthesia/is about the bi opsy site. A 9G quitchen vacuum assisted biopsy needle was advanced to the level of the calcification o f interest from a lateral approach utilizing stereotactic guidance and a total of 12 tissue core biop sies were obtained. A specimen radiograph demonstrates that the calcifications of interest are included within the tissue cores. A tissue marker clip was then placed at the biopsy site. A digital mammographic exposure co nfirmed the successful deployment of the biopsy marker. The needle was removed and hemostasis was ac hieved. A sterile bandage was applied. The patient tolerated the procedure well and there is no jarad dence of significant immediate complication. The patient was given verbal as well as written postpro cedural instructions prior to discharge from the department. Tissue cores were submitted to surgical pathology for histologic analysis. A 2-view left unilateral digital mammogram was obtained post procedure, demonstrating the tissue cole er clip in expected position. IMPRESSION: Successful stereotactic biopsy of left upper outer quadrant breast microcalcifications, followed by tissue marker clip placement. Please refer to pathology report for histologic analysis. Reviewed, dictated and finalized at Location A. Reviewed, dictated and finalized at location A. IMPRESSION: Successful stereotactic biopsy of left upper outer quadrant breast microcalcif ications, followed by tissue marker clip placement. Please refer to pathology report for histologic analysis. IMPRESSION: Successful stereotactic biopsy of left upper outer quadrant breast microcalcif ications, followed by tissue marker clip placement. Please refer to pathology report for histologic analysis.
== END 2023-06-04 11:57 | disposition home or self-care (01) ==
PROVIDERS: PCP Family Medicine
DX: R92.1 Mammographic calcification found on diagnostic imaging of breast (principal); D05.12 Intraductal carcinoma in situ of left breast
CPT/HCPCS: 19081; 77065; 88305; 88342

== ENCOUNTER 2023-07-22 15:31 | Outpatient (CLI) | payer MEDICARE, SELFPAY ==
[2023-07-22 15:52] LABS: Basophils Percent Auto 0.3 % (0.2-1.2); Eosinophils Absolute Auto 0.1 K/mm3 (0-0.3); Eosinophils Percent Auto 1.6 % (0-4.4); Hematocrit 43.8 % (37.0-47.0); Hemoglobin 14.3 g/dL (12.0-15.0); Immature Granulocyte Absolute 0.01 K/mm3 (0.00-0.031); Immature Granulocyte Percent A 0.1 % (0-0.5); Lymphocytes Percent Auto 24.1 % (18.3-44.2); Mean Corpuscular HGB Conc 32.6 g/dl (32-36); Mean Corpuscular Volume 91.8 fl (80-100); Mean Platelet Volume 9.4 fl (7.4-10.4); Monocytes Absolute Auto 0.7 K/mm3 (0.1-0.6); Monocytes Percent Auto 9.9 % (2.6-8.5); Neutrophils Absolute Auto 4.5 K/mm3 (1.3-6.7); Platelet Count Result 351 k/mm3 (150-375); Red Blood Count 4.77 M/mm3 (4.2-5.4); Red Cell Distribution Width 13.2 % (11.5-14.5)
[2023-07-22 18:25] LABS: Alanine Aminotransferase 28 U/L (6-35); Albumin Level 4.2 g/dL (3.5-5.1); Alkaline Phosphatase 73 U/L (38-126); Anion Gap 6 mmol/L (4-12); Aspartate Amino Transferase 27 U/L (14-36); Bilirubin,Total 0.4 mg/dL (0.2-1.3); Blood Urea Nitrogen 16 mg/dL (7-17); Calcium 9.1 mg/dL (8.4-10.2); Carbon Dioxide 28 mmol/L (22-30); Chloride 105 mmol/L (98-107); Estimated Glomerular Filt Rate > 60; Glucose 102 mg/dL (65-110); Potassium 4.3 mmol/L (3.4-5.0); Sodium 139 mmol/L (137-145)
== END 2023-07-22 15:32 | disposition home or self-care (01) ==
LOC: ANHLAB 15:32
PROVIDERS: Visit Provider Internal Medicine Hematology & Oncology
DX: D05.12 Intraductal carcinoma in situ of left breast (principal)
CPT/HCPCS: 36415; 80053; 85025

== ENCOUNTER 2023-09-30 14:27 | Outpatient (CLI) | payer MEDICARE, SELFPAY ==
[2023-09-30 14:44] LABS: Basophils Percent Auto 0.3 % (0.2-1.2); Eosinophils Percent Auto 0.3 % (0-4.4); Hematocrit 44.1 % (37.0-47.0); Hemoglobin 14.6 g/dL (12.0-15.0); Immature Granulocyte Absolute 0.01 K/mm3 (0.00-0.031); Immature Granulocyte Percent A 0.2 % (0-0.5); Lymphocytes Absolute Auto 1.18 K/mm3 (0.9-3.2); Lymphocytes Percent Auto 19.2 % (18.3-44.2); Mean Corpuscular HGB Conc 33.1 g/dl (32-36); Mean Corpuscular Hemoglobin 30.6 pg (26-34); Mean Corpuscular Volume 92.5 fl (80-100); Mean Platelet Volume 9.4 fl (7.4-10.4); Monocytes Absolute Auto 0.6 K/mm3 (0.1-0.6); Monocytes Percent Auto 9.1 % (2.6-8.5); Neutrophils Absolute Auto 4.4 K/mm3 (1.3-6.7); Neutrophils Percent Auto 70.9 % (45.5-73.1); Platelet Count Result 313 k/mm3 (150-375); Red Blood Count 4.77 M/mm3 (4.2-5.4); White Blood Count 6.2 K/mm3 (4.5-10.0)
[2023-09-30 14:48] LABS: Blood Urea Nitrogen 14 mg/dL (8-26); Carbon Dioxide 23 mmol/L (22-30); Chloride 107 mmol/L (98-109); Estimated Glomerular Filt Rate > 60; Glucose 103 mg/dL (70-105); Ionized Calcium (POC) 1.21 mmol/L (1.11-1.31); Potassium 4.2 mmol/L (3.5-4.9); Sodium 141 mmol/L (138-146)
[2023-09-30 16:40] LABS: Alanine Aminotransferase 16 U/L (6-35); Albumin Level 4.2 g/dL (3.5-5.1); Alkaline Phosphatase 72 U/L (38-126); Anion Gap 10 mmol/L (4-12); Aspartate Amino Transferase 19 U/L (14-36); Bilirubin,Total 0.4 mg/dL (0.2-1.3); Blood Urea Nitrogen 14 mg/dL (7-17); Calcium 9.1 mg/dL (8.4-10.2); Carbon Dioxide 24 mmol/L (22-30); Chloride 105 mmol/L (98-107); Estimated Glomerular Filt Rate > 60; Glucose 98 mg/dL (65-110); Potassium 4.2 mmol/L (3.4-5.0); Sodium 139 mmol/L (137-145)
== END 2023-09-30 14:28 | disposition home or self-care (01) ==
LOC: ANHLAB 14:29
PROVIDERS: PCP Family Medicine; Visit Provider Internal Medicine Hematology & Oncology
DX: D05.12 Intraductal carcinoma in situ of left breast (principal)
CPT/HCPCS: 36415; 80047; 80053; 85025

== ENCOUNTER 2024-01-18 09:48 | Outpatient (CLI) | payer MEDICARE, SELFPAY ==
[2024-01-18 19:11] LABS: Basophils Percent Auto 0.8 % (0.2-1.2); Eosinophils Absolute Auto 0.1 K/mm3 (0-0.3); Eosinophils Percent Auto 1.3 % (0-4.4); Hematocrit 45.9 % (37.0-47.0); Hemoglobin 14.7 g/dL (12.0-15.0); Immature Granulocyte Absolute 0.01 K/mm3 (0.00-0.031); Immature Granulocyte Percent A 0.3 % (0-0.5); Lymphocytes Absolute Auto 0.99 K/mm3 (0.9-3.2); Lymphocytes Percent Auto 24.8 % (18.3-44.2); Mean Corpuscular Hemoglobin 31.4 pg (26-34); Mean Corpuscular Volume 98.1 fl (80-100); Mean Platelet Volume 10.6 fl (7.4-10.4); Monocytes Absolute Auto 0.4 K/mm3 (0.1-0.6); Neutrophils Absolute Auto 2.5 K/mm3 (1.3-6.7); Neutrophils Percent Auto 62.8 % (45.5-73.1); Platelet Count Result 288 k/mm3 (150-375); Red Blood Count 4.68 M/mm3 (4.2-5.4); Red Cell Distribution Width 13.1 % (11.5-14.5)
[2024-01-18 19:21] LABS: Alanine Aminotransferase 15 U/L (6-35); Alkaline Phosphatase 64 U/L (38-126); Anion Gap 6 mmol/L (4-12); Aspartate Amino Transferase 41 U/L (14-36); Bilirubin,Total 0.6 mg/dL (0.2-1.3); Blood Urea Nitrogen 16 mg/dL (7-17); Calcium 9.1 mg/dL (8.4-10.2); Carbon Dioxide 29 mmol/L (22-30); Chloride 103 mmol/L (98-107); Cholesterol 215 mg/dL (0-200); Estimated Glomerular Filt Rate > 60; Glucose 85 mg/dL (65-110); HDL Direct 59 mg/dL; Potassium 4.4 mmol/L (3.4-5.0); Sodium 138 mmol/L (137-145); Triglycerides 143 mg/dL (<150)
[2024-01-18 19:32] LABS: LDL Cholesterol Direct 117 mg/dL
[2024-01-18 21:45] LABS: Free T4 Free Thyroxine 1.27 ng/mL (0.78-2.19)
== END 2024-01-18 09:49 | disposition home or self-care (01) ==
PROVIDERS: Visit Provider Physician Assistant
DX: Z13.220 Encounter for screening for lipoid disorders (principal); Z79.891 Long term (current) use of opiate analgesic
CPT/HCPCS: 36415; 80053; 80061; 84439; 84443; 85025

== ENCOUNTER 2024-02-01 14:03 | Outpatient (CLI) | payer MEDICARE, SELFPAY ==
[2024-02-01 14:17] LABS: Basophils Percent Auto 0.4 % (0.2-1.2); Eosinophils Absolute Auto 0.1 K/mm3 (0-0.3); Eosinophils Percent Auto 0.9 % (0-4.4); Hemoglobin 14.4 g/dL (12.0-15.0); Immature Granulocyte Absolute 0.01 K/mm3 (0.00-0.031); Immature Granulocyte Percent A 0.2 % (0-0.5); Lymphocytes Absolute Auto 1.25 K/mm3 (0.9-3.2); Lymphocytes Percent Auto 23.5 % (18.3-44.2); Mean Corpuscular HGB Conc 33.5 g/dl (32-36); Mean Corpuscular Hemoglobin 31.3 pg (26-34); Mean Corpuscular Volume 93.5 fl (80-100); Mean Platelet Volume 9.3 fl (7.4-10.4); Monocytes Absolute Auto 0.5 K/mm3 (0.1-0.6); Neutrophils Absolute Auto 3.5 K/mm3 (1.3-6.7); Platelet Count Result 342 k/mm3 (150-375); Red Cell Distribution Width 12.4 % (11.5-14.5); White Blood Count 5.3 K/mm3 (4.5-10.0)
[2024-02-01 14:21] LABS: Blood Urea Nitrogen 15 mg/dL (8-26); Carbon Dioxide 25 mmol/L (22-30); Chloride 104 mmol/L (98-109); Estimated Glomerular Filt Rate > 60; Glucose 136 mg/dL (70-105); Potassium 3.7 mmol/L (3.5-4.9); Sodium 141 mmol/L (138-146)
== END 2024-02-01 14:04 | disposition home or self-care (01) ==
LOC: ANHLAB 14:05
PROVIDERS: Visit Provider Internal Medicine Hematology & Oncology
DX: D05.12 Intraductal carcinoma in situ of left breast (principal)
CPT/HCPCS: 36415; 80047; 85025

== ENCOUNTER 2024-04-19 12:57 | Outpatient (CLI) | payer MEDICARE, SELFPAY ==
--- NOTE | ~2024-04-19 | CT_ITS ---
EXAMINATION: CT abdomen pelvis w con DATE: 04/19/2024 13:36 INDICATION: Right lower quadrant abdominal pain. TECHNIQUE: Computed tomography (CT) of the abdomen and pelvis was performed with 100 mL Omnipaque-350 intravenous contrast. Automated exposure control and iterative reconstruction technique were employe d. The dose-length product was 514.52 mGy-cm. COMPARISON: None FINDINGS: Large calcified granuloma and associated atelectasis/scarring in the right lower lobe. Heart size nor mal. No pericardial or pleural effusion. Subcentimeter cyst in the left hepatic lobe. Gallbladder, sp hemanth, pancreas and bilateral adrenal glands are normal. Subcentimeter bilateral renal cysts. Normal a ppendix. There is moderate diverticulosis along the sigmoid colon with focal wall thickening and prom inent surrounding inflammatory stranding at the mid sigmoid colon consistent with diverticulitis. The re are surrounding extraluminal gas and fluid collections in the deep pelvis measuring 4.0 x 2.6 cm o n the right and 2.7 x 2.3 cm and 2.4 x 1.8 cm on the left. These remain without organized-appearing w ell-defined peripheral enhancing mass. There is fluid filling multiple loops of small bowel without f rank dilation or a discrete transition point and this is most likely related to a secondary ileus. Th ere is mild edematous wall thickening along a short loop of small bowel in the deep right hemipelvis which likely reactive related to the adjacent perforated diverticulitis. 20 degree lumbar dextroscoli osis with severe spondylosis. There is combined instrumented anterior and posterior spinal fusion at L4-L5 with interbody bone graft cage, left-sided lateral plate and screw fixation and right-sided pos terior vertical sacha and pedicle screw fixation. IMPRESSION: 1. Perforated sigmoid diverticulitis with a few small not yet well organized-appearing gas and fluid collections in the deep pelvis suspicious for developing abscesses. 2. Likely reactive ileitis with wall thickening along a short segment of adjacent small bowel and lik joe secondary ileus. Reviewed, dictated and finalized at location A. NDER SUPERVISOR IMPRESSION: 1. Perforated sigmoid diverticulitis with a few small not yet well organized-ap pearing gas and fluid collections in the deep pelvis suspicious for developing abscesses. 2. Likely reactive ileitis with wall thickening along a short segment of adjace nt small bowel and likely secondary ileus.
[2024-04-19 13:30] LABS: Estimated Glomerular Filt Rate 55
--- OUTSIDE RECORDS SUMMARY | 2024-04-19 13:46 | XMS_ITS | Encounter Summary ---
Author Organization [facility] Address [address] [place] [address] Care Team Providers Care Tour Bus Driver/Guide Name Role Phone Luis Parrish MD Primary Care Provider [phone] Encounter Details Date Type Department Care Team (Late st Contact Info) Description 02/21/2020 Procuricst Message Enc [facility]ispecialty Care - [facility] [address], [address] [place] [address] Merlene Lara, [place] [address] [place] [address] RE: Question Social History Tobacco Use Types Packs/Day Years Used Date Smoking Tobacco: Never Smokeless Tobacco: Never Alcohol Use Standard Drinks/Week Comments Not Currently 0 (1 standard drink = 0.6 oz pur e alcohol) 0-3 Comments No Sex and Gender Information Value Date Recorded Sex Assigned at Not on file Legal Sex Female 8:09 PM CDT Gender Identity Not on file Sexual Orientation Not on file COVID-19 Exposure Response Date Recorded In the last month, have you been in contact with someone who was confirmed or suspected to have Coronavirus / COVID-19? 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 Answer Date of Assessment Author Status No 01/12/2020 2:53 PM TENSIONING MACHINE OPERATOR Acti ve * Do you have serious difficulty walking or climbing stairs? Answer Date of Assessment Author Status No 01/12/2020 2:53 PM Jennifer Zambrano RN Active * Do you have difficulty dressing or bathing? Answer Date of Assessment Author Status No 01/12/2020 2:53 PM Jennifer Zambrano RN Active * Because of a physical, mental, or emotional condition, do you have difficulty doing errands alone such as visiting a doctor's office or shopping? Answer Date of Assessment Author Status No 01/12/2020 2:53 PM Jennifer Zambrano RN Active documented as of this encounter Mental Status * Because of a physical, mental, or emotional condition, do you have serious difficulty concentrating, remembering, or making decisions? Answer Entry Date Author Status No 01/12/2020 2:53 PM Jennifer Zambrano RN Active documented in this encounter Plan of Treatment Not on file documented as of this encounter Visit Diagnoses Not on filedocumented in this encounter Care Teams Tour Bus Driver/Guide Relationship Specialty Start Date End Date Luis Parrish MD [address] [place] [id number] PCP - General PEDIATRICS 01/06/20 documented as of this encounter
--- OUTSIDE RECORDS SUMMARY | 2024-04-19 13:46 | XMS_ITS | Patient Health Summary ---
Author Organization [facility] Address [address] [place] [address] Care Team Providers Care Rail Specialist Name Role Phone Wes Parrish MD Primary Care Provider [phone] Rehana Ceron MD Unavailable [phone] [facility],non-owned Affiliates and Associated Physician Practices is amultiple site organization consisting of ambulatory clinics and hospital sitesin [place], [place], [place] and [place]. This disclosure is being madepursuant to the Care Everywhere program and may not contain all information available regarding this patient. Last updated 17.[facility] Allergies * Erythromycin(Unknown) Medications * Be aware that medications may not be up to date on this document. Alwaysverify current medications with the patient. * sulfaSALAzine (AZULFIDINE) 500 MG tablet Take 500 mg by mouth 4 times daily * levocetirizine (XYZAL) 5 MG tablet Take 5 mg by mouth once daily * Fish Oil * Calcium Carb-Cholecalciferol (CALCIUM + D3 PO) * aspirin (ASPIRIN) 81 MG tablet Take 81 mg by mouth once daily * Probiotic Product (PROBIOTIC PO) * benzonatate (TESSALON) 100 MG capsule(Started 04/14/2016) You can take 1-2 tablets PO TID PRN, max dose 6 tablets in 24 hours. * benzonatate (TESSALON) 200 MG capsule(Started 12/15/2018) Take 1 capsule by mouth 3 times daily as needed for Cough Social History Tobacco Use Types Packs/Day Years Used Date Smoking Tobacco: Never Smokeless Tobacco: Never Alcohol Use Standard Drinks/Week Comments Not Asked 0 (1 standard drink = 0.6 oz pur e alcohol) Sex and Gender Information Value Date Recorded Sex Assigned at Not on file Gender Identity Not on file Sexual Orientation Not on file Last Filed Vital Signs Vital Sign Reading Time Taken Comments Blood Pressure 138/88 12/15/2018 9:39 AM CDT Pulse 93 12/15/2018 9:39 AM CDT Temperature 37 C (98.6 F) 12/15/2018 9:39 AM CDT Respiratory Rate 16 12/15/2018 9:39 AM CDT Oxygen Saturation 97% 12/15/2018 9:39 AM CDT Inhaled Oxygen Concentration - - Weight 74.8 kg (165 lb) 12/15/2018 9:39 AM CDT Height 172.7 cm (5' 8 ) 12/15/2018 9:39 AM CDT Body Mass Index 25.09 12/15/2018 9:39 AM CDT Procedures * INFLUENZA A+B - POINT OF CARE (AMB)(Performed 12/15/2018) Performed for Upper respiratory tract infection, unspecified type * INFLUENZA A+B - POINT OF CARE (AMB)(Performed 04/14/2016) Performed for Acute frontal sinusitis, unspecified Results * INFLUENZA A+B - POINT OF CARE (AMB) (12/15/2018 9:54 AM CDT) Only the most recent of2 resultswithin the time period is included. Influenza A Antigen Rapid Negative Negative Influenza B Antigen Rapid Negative Negative Influenza Internal Control positive NEGATIVE - POSITIVE Influenza Lot Number [id number] Influenza Expiration Date ,020 Other NASOPHARYNGEAL SWAB / Unknown 12/15/2018 9:54 AM CDT Jamee Kimball APRN-[facility] - POINT OF CA RE ORDERABLES Care Teams Rail Specialist Relationship Specialty Start Date End Date Wes Parrish MD [address] [place], [place] [id number] PCP - General 08/20/20 Rehana Ceron MD [address] [place] [address] Family Medicine 08/20/20
--- OUTSIDE RECORDS SUMMARY | 2024-04-19 13:46 | XMS_ITS | Data Portability ---
Author Organization [facility] Maxime [facility] Address [address] [place] [address] Care Team Providers Care Laundry Aide Name Role Phone DARIEN WICK Primary Care Provider RUBÉN Gordillo Radiation Oncologist [phone] WEI HAMILTON JR Reject Opener ALESSIO LUZ Biologist Assessment Encounter Date Assessment Date Assessment LastModified by Organization Details LastModified Time 12/25/2023 12/25/2023 colonoscopy UTD still mammogram upcoming post breast cancer dx. eye and dental UTD seeing dr. jasso oncologist. [email or web address] Not available 12/25/2023 12:18:04 Plan of Treatment Reminders Order Date Submit Date Provider Last Modified By Organization Details Last Modified Time Details Appointments ANY 15 2024 11:30A M CARISSA Nieves Not available Not available Not available Lab lipid panel, serum 2023 024 [facility], [address], [place], [address], 01/19/2024 01:29:45 CBC w/ auto diff 2023 024 [facility], [address], [place], [address], 01/19/2024 01:29:45 hepatic function panel, serum 2023 024 [email or web address], [address], [place], [address], 02/01/2024 17:17:42 BMP, serum or plasma 2023 024 [facility], [address], [place], [address], 01/19/2024 01:29:45 TSH + free T4, serum 2023 024 [facility], [address], [place], [address], 01/19/2024 01:29:45 Referral None recorded. Procedures None recorded. Surgeries None recorded. Imaging None recorded. Medication Orders None recorded. Patient TargetsNo targets recorded. Patient InstructionsNo instructions recorded. Reason for Referral None Reported. Results Created Date Observation Date Name Description Value Unit Range Abnormal Flag Note LastModifiedBy Organization Detail LastModifiedTime Result Notes None recorded. Problems Name Problem SNOMED Code Status Onset Date Resolution Date Notes Provider Name and Address Organization Details Recorded Time Body mass index 20-24 - normal 771318948 Active 2023 Kristen Rocha MA null, [place] - [facility] 4 11:41:44 Labile hypertensio n due to being in a clinical environment 391677673 Active 2023 CARISSA Nieves Attn: Accountalvin g,[address], [place], [address], [place] - [facility] 4 12:18:05 History of malignant neoplasm of breast 501857260 Active 2023 CARISSA Nieves Attn: Accountin g,[address], [place], [address], [place] - [facility] 4 12:18:07 History of malignant neoplasm of skin 989607998 Active 2023 CARISSA Nieves Attn: Accountin g,[address], [place], [address], [place] - [facility] 4 12:18:08 Right foot drop 3880171864081 06 Active 2023 CARISSA Nieves Attn: Accountin g,[address], [place], [address], [place] - [facility] 4 12:18:09 History of lumbar fusion 6858736494575 6 Active 2023 CARISSA Nieves Attn: Accountin g,[address] [facility], [place], [address], [place] - [facility] 4 12:18:10 Bereavement 64887437 Active 2023 CARISSA Nieves Attn: Accountin g,[address] [facility], [place], [address], [place] - [facility] 4 17:14:51 Long-term drug therapy Active 2023 CARISSA Nieves Attn: Accountin g,[address] [facility], [place], [address], [place] - [facility] 4 17:15:02 Problem Notes None recorded. Procedures Surgical History Date Name Laterality Status Provider Name and Address Organization Details Recorded Time 06/08/19 24 lumpectomy of breast completed Kristen Rocha [place] [facility] 12/25/2023 13:03:12 03/09/19 22 kidney stone analysis completed Kristen Rocha [place] [facility] 12/25/2023 13:02:59 Back Surgery completed Kristen Rocha MA [facility] 12/25/2023 11:34:47 Breast Surgery completed Kristen Rocha [place] [facility] 12/25/2023 11:34:52 hysterectomy completed Kristen Rocha [place] [facility] 12/25/2023 11:34:58 Imaging Results None recorded. Procedure Notes None recorded. Medical Equipment None Reported. Allergies Allergen ID Allergen Name Allergen Category Reaction Reaction Severity Criticality Documentation Date Start Date Code Code System Note Provider Name and Address Organization Details Recorded Time 577553 erythromy eamon estolate medicatio n Not available Not available Not available 12/25/2023 4055 RxNorm Not Available Not Available Not Available Medications Name Sig Start Date Stop Date Status Note LastModified by Organization Details LastModified Time amoxicillin 500 mg capsule TAKE 1 CAPSULE BY MOUTH FOUR TIMES DAILY 12/24 completed Not Available Not Available Not Available buspirone 5 mg tablet TAKE 1 TABLET BY MOUTH EVERY MORNING. MAY TAKE EVERY 6 HOURS NEEDED. MAX 3 TOTAL TABLETS PER DAY active Not Available Not Available No t Available trazodone 50 mg tablet Take 1 tablet every day by oral route for 90 days. active Not Available Not Available No t Available hydrocodone 5 mg-acetamin ophen 325 mg tablet 12/24 completed Not Available Not Available Not Available alendronate 70 mg tablet TAKE 1 TABLET WEEKLY DIRECTED active Not Available Not Available No t Available Baby Aspirin 81 mg chewable tablet Chew 1 tablet every day by oral route. active Not Available Not Available No t Available fluticasone propionate 50 mcg/actuati on nasal spray,suspe nsion SHAKE LIQUID AND USE 2 SPRAYS IN EACH NOSTRIL EVERY DAY active Not Available Not Available No t Available tamoxifen 20 mg tablet TAKE 1 TABLET DAILY active Not Available Not Available No t Available nitrofurant oin monohydrate /macrocryst als 100 mg capsule TAKE 1 CAPSULE BY MOUTH TWICE DAILY FOR 3 DAYS NEEDED FOR UTI 12/24 completed Not Available Not Available Not Available Calcium D-Glucarate active Not Available Not Available Not Available levocetiriz ine 5 mg tablet TAKE 1 TABLET DAILY IN THE EVENING active Not Available Not Available No t Available Vitals Date Recorded Respiratory rate Body weight Body mass index (BMI) Body height Oxygen saturation Oxygen saturation in Arterial blood by Pulse oximetry Heart rate Systolic blood pressure Diastolic blood pressure Provider Name and Address Organization Details Last Updated DateTime 4 18 /min 77890.5 9 g 24.7 kg/m2 170.18 cm 98 % 98 % 76 /min 150 mm[Hg] 88 mm[Hg] Kristen Rocha MA [facility] 11:43:56 Date Recorded Systolic blood pressure Diastolic blood pressure Provider Name and Address Organization Details Last Updated DateTime 12/25/2023 142 mm[Hg] 88 mm[Hg] CARISSA Nieves Attn: [address]ing[address] [place], [address], [place] - [facility] 12/25/2023 12:27:23 Date Recorded Body height Respiratory rate Oxygen saturation Oxygen saturation in Arterial blood by Pulse oximetry Heart rate Provider Name and Address Organization Details Last Updated DateTime 170.18 cm 18 /min 97 % 97 % 102 /min Kristen Rocha MA [facility] 12:44:49 Date Recorded Body temperature Systolic blood pressure Diastolic blood pressure Provider Name and Address Organization Details Last Updated DateTime 04/19/2024 98.4 [degF] 130 mm[Hg] 80 mm[Hg] CARISSA Nieves Attn: Accounting, [address], [place], [address], [facility] 04/19/2024 13:01:47 Social History Question Answer Notes LastModified by Organizat ion Details LastModified Time Tobacco Smoking Status Never Smoker Kristen Rocha MA null, [facility] 12/25/2023 11:35:57 Do You Have An Advance Directive? Yes Information n ot available 04/19/2024 What Is Your Level Of Alcohol Consumption? Occasional Information not available 12/25/2023 Are You Blind Or Do You Have Difficulty Seeing? Yes Information n ot available 04/19/2024 What Is Your Level Of Caffeine Consumption? None Information not available 12/25/2023 In The 14 Days Before Symptom Onset, Have You Had Close Contact With A Laboratory-confirm ed COVID-19 While That Case Was Ill? No Information n ot available 12/25/2023 In The 14 Days Before Symptom Onset, Have You Had Close Contact With A Person Who Is Under Investigation For COVID-19 While That Person Was Ill? No Information not available 12/25/2023 Have You Been To An Area Known To Be High Risk For COVID-19? No Information not available 12/25/2023 Are You Currently Employed? No Information not available 04/19/2024 Are You Deaf Or Do You Have Serious Difficulty Hearing? No Information not available 04/19/2024 What Type Of Diet Are You Following? REGULAR Information n ot available 04/19/2024 Are There Any Guns Present In Your Home? No Information not available 12/25/2023 What Was The Date Of Your Most Recent Tobacco Screening? 04/19/2024 Information not available 04/19/2024 What Is Your Relationship Status? Information not available 04/19/2024 Do You Use Your Seat Belt Or Car Seat Routinely? Yes Information not available 12/25/2023 Do You Have Smoke And Carbon Monoxide Detectors In Your Home? Yes Information not available 12/25/2023 Do You Feel Stressed (tense, Restless, Nervous, Or Anxious, Or Unable To Sleep At Night)? [id number] Information not available 04/19/2024 Do You Use Any Illicit Or Recreational Drugs? No Information not available 12/25/2023 Do You Use Sunscreen Routinely? No Information not available 04/19/2024 Has Tobacco Cessation Counseling Been Provided? No Information not available 12/25/2023 Do You Or Have You Ever Used Any Other Forms Of Tobacco Or Nicotine? No Information not available 12/25/2023 Sex: Female Functional Status Question Answer Note LastModified by Organizat ion Details LastModified Time Are you able to care for yourself? Yes Information not available 12/25/2023 What is your exercise level? Occasional Information not available 04/19/2024 Mental Status None recorded. Family History Relationship Description Onset Age of this Age Resolved Age Notes LastModified by Organization Details LastModified Time Mother Hypertensive disorder [email or web address] Not available 2023 11:35:19 Mother Osteoporosis [email or web address] Not avai lable 12/25/2023 11:35:32 Father Hypercholest erolemia [email or web address] Not available 2023 11:35:25 Medical History Condition Response Coronary Artery Disease N Other N High Blood Pressure N Atrial Fibrillation N Kidney or Bladder Problems N Thyroid Problems Y GI Problems N Depression N COPD N Blood Clots N Have you had a mammogram in the last yea r? N Skin Problems Y Anemia N Heart Attack ([place]) N Anxiety Disorder Y Diabetes N Muscle, Joint, or Bone Problems N Seizures/Epilepsy N Have you had a colonoscopy in the last 1 0 years? N Acid Reflux (GERD) N Cancer Y Stroke N Asthma N Allergies Y Have you had a PSA blood test in the t year? N High Cholesterol N Hepatitis N Liver Disease N Headaches N Heart Failure N Osteoporosis N Gynecological History Statement/Question Response Menses Monthly N Current Control Method Other Obstetrics History GPAL:G 0 P 0 0 0 0 Immunizations Vaccine Type Date Status Note Provider Nam e and Address Organization Details Recorded Time zoster recombinant 0 completed Kristen R[place], [place] [facility] 12/25/2023 11:40:01 zoster recombinant 0 completed Kristen [place] [facility] 12/25/2023 11:40:01 Influenza, high-dose, quadrivalent, PF 1 completed Kristen [place] [facility] 12/25/2023 11:40:01 Influenza, high-dose, quadrivalent, PF 2 completed Kristen [place] [facility] 12/25/2023 11:40:01 Influenza, high-dose, quadrivalent, PF 3 completed Kristen [place] [facility] 12/25/2023 11:40:01 Influenza, adjuvanted, quadrivalent, PF 0 completed [place]en [place] [facility] 12/25/2023 11:40:01 COVID-19, mRNA, LNP-S, PF, 100 mcg/0.5mL dose or 50 mcg/0.25mL dose 1 completed Kristen [place] [facility] 12/25/2023 11:40:01 COVID-19, mRNA, LNP-S, PF, 100 mcg/0.5mL dose or 50 mcg/0.25mL dose 1 completed Kristen [place] [facility] 12/25/2023 11:40:01 COVID-19, mRNA, LNP-S, PF, 100 mcg/0.5mL dose or 50 mcg/0.25mL dose 2 completed Kristen [place] [facility] 12/25/2023 11:40:01 COVID-19, mRNA, LNP-S, PF, 100 mcg/0.5mL dose or 50 mcg/0.25mL dose 1 completed NONA [place], [place] [facility] 12/25/2023 11:40:01 COVID-19, mRNA, LNP-S, bivalent, PF, 50 mcg/0.5 mL or 25mcg/0.25 mL dose 2 [place] [facility] 12/25/2023 11:40:01 pneumococcal conjugate PCV 7 3 [place] [facility] 12/25/2023 11:40:01 RSV, bivalent, protein subunit RSVpreF, diluent reconstituted, 0.5 mL, PF 3 [place] [facility] 12/25/2023 11:40:01 COVID-19, mRNA, LNP-S, PF, oscar-sucrose, 30 mcg/0.3 mL 3 [place] [facility] 12/25/2023 11:40:01 pneumococcal polysaccharide PPV23 3 [place] [facility] 12/25/2023 11:40:01 influenza, unspecified formulation 3 [place] [facility] 12/25/2023 11:40:01 Tdap 4 [place] [facility] 12/25/2023 11:40:01 Pneumococcal conjugate PCV 13 0 [place] [facility] 12/25/2023 11:40:01 Influenza, high-dose, trivalent, PF 9 [place] [facility] 12/25/2023 11:40:01 Influenza, high-dose, trivalent, PF 8 [place] [facility] 12/25/2023 11:40:01 Influenza, high-dose, trivalent, PF 4 [place] [facility] 12/25/2023 11:40:01 Hep B, adult 0 [place] [facility] 12/25/2023 11:40:01 Hep B, adult 9 [place] [facility] 12/25/2023 11:40:01 Hep B, adult 9 [place] [facility] 12/25/2023 11:40:01 Influenza, split virus, quadrivalent, PF 7 [place] [facility] 12/25/2023 11:40:01 Past Encounters Encounter ID Performer Location Encounter Start Date Encounter Closed Date Diagnosis/Indication Diagnosis SNOMED-CT Code Diagnosis ICD10 Code Diagnosis Note [id number] CARISSA Nieves [facility] [employer] [address] [place] [address] 12/25/2023 11:07:06 12/25/2023 12:30:45 Body mass index 20-24 - normal 099975119 Z68.24 BMI is 24.7 History of malignant neoplasm of breast 387204659 Z85.3 History reviewed with the patient History of malignant neoplasm of skin 058770155 Z85.828 History reviewed with patient Right foot drop 76189715 01 79490 M21.371 Chronic and she does wear a brace in place to help History of lumbar fusion 6675079869 9106 Z98.1 History reviewed Labile hyp ertension due to being in a clinical environment 429030110 I15.8 Several blood pressure readings done today in the office and she does continue to run a little higher but endorses normal blood pressure readings at her home. She consistent ly has labile blood pressure changes in the clinic [facility] t. Her last reading was 142/88 today which certainly is stable Bereavement 34396527 Z63 .4 Patient lost her this year and is still in bereavemen t. She is taking some BuSpar 5 mg up to 3 times daily to help. Cholesterol screening 27 8896159 Z13.220 Fasting lipid panel is due Long-term drug therapy 304697202 Z79.891 Routine CBC, metabolic panel liver function and thyroid testing ordered [facility] 299346348 Z00.01 New patient exam completed Health Concerns Section Related Observation LastModified by Organization Detai ls LastModified Time None Recorded Concern Status LastModified by Organization Details LastModified Time None Recorded Advance Directives Directive Y: Payers Encounter Date Sequence Insurance Name Policy Number Policy Orr Covered Member ID Orr Member ID Guarantor Name 12/25/2023 1 [employer] (MEDICARE REPLACEMENT PPO) [id number] Kathryn Omkar [id number] Kathryn Espitia Notes Date Note Type Note Provider Name and Address Organization Details Recorded Time 12/25/2023 text/html Patient presents today for a new primary care provider. She relocated to the area more recently and lost her earlier in the year. She is not wanting to make the drive to her previous primary care provider anymore. She endorses a history of some clinic environment hypertension with normal readings at home. She also reports a history of breast cancer, skin cancer and chronic right foot drop. She does have a history of lumbar fusion. She is due for updated labs. CARISSA Nieves Attn: [address]ing[address] [place], [address], [facility] 01/10/2024 17:18:13 OBGyn Episode No OBEpisode recorded.
--- OUTSIDE RECORDS SUMMARY | 2024-04-19 13:46 | XMS_ITS | Clinical Summary ---
Author Organization [facility] Address [address] [place] [address] Care Team Providers Care Commutator Tester Name Role Phone Luis Parrish MD Primary Care Provider + [phone] Allergies Active Allergy Reactions Criticality Noted Date Comments Erythromycin Unknown 01/06/2011 Large Nitinol Devices & Components Medications multivitamin tablet Take 1 tablet by mouth daily. Active traZODone 50 MG tablet Take 50 mg by mouth nightly as needed for Sleep (1-2 tablets can take (usually takes a half tablet)). 08/09/19 20 Active Levocetirizine Dihydrochloride 5 MG Tab Take 1 tablet by mouth daily. 09/13/19 20 Active Calcium Carb-Cholecalcifero l (CALCIUM-VITAMIN D) 500-200 MG-UNIT tablet Take 1 tablet by mouth 2 (two) times daily. Active Probiotic Product (PROBIOTIC ADVANCED OR) Take 1 tablet by mouth daily. Active Black Elderberry,Sloan-Fl ower, 575 MG Cap Take 1 tablet by mouth daily. Active BONE STIMULATOR, DME,Indications:Spi nal instabilities of lumbar region Orthofix bone stimulator. Wear 4 hours daily. Can break up into multiple sessions totaling 4 hours. 1 Device 12/19/19 20 Active Misc. Devices MiscIndications:Spi nal instabilities of lumbar region 1 each by Does not apply route continuous. LSO for continuous wear while ambulating or up in chair. 1 each 12/19/19 20 Active melatonin 5 MG tablet Take 5 mg by mouth nightly as needed. Active clonazePAM 0.5 MG tablet Take 1 tablet by mouth 2 (two) times daily as needed. 1/2 to 1 tablet bid prn 12/20/19 20 Active HYDROcodone-acetami nophen 5-325 MG tabletIndications:A cute Pain < 7 Day Supply Take 1-2 tablets by mouth every 4 (four) hours as needed for Pain. Indications: Acute Pain < 7 Day Supply 50 tablet 01/13/20 20 Active senna-docusate 8.6-50 MG tabletIndications:S /P lumbar fusion Take 1 tablet by mouth 2 (two) times daily as needed. 20 tablet 01/13/20 20 Active BONE STIMULATOR, DME, Wear 4 hours daily. Can break up into multiple sessions totaling 4 hours. 1 Device 01/23/20 20 Active AFO BRACE, DME,Indications:Ra t drop, right Apply 1 Device topically continuous prn. Right AFO Brace 1 Device 04/26/19 21 Active alendronate 70 MG tablet TAKE 1 TABLET BY MOUTH ONCE A WEEK DIRECTED 10/31/19 21 Active aspirin EC (ASPIRIN EC) 81 MG tablet Take 81 mg by mouth daily. Active sulfaSALAzine 500 MG tabletIndications:C olitis, collagenous Take 1 tablet (500 mg total) by mouth daily. 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 S/P lumbar fusion 01/12/2020 S/P lumbar laminectomy 01/12/2020 Spinal stenosis of lumbar re gion with neurogenic claudication 12/13/2019 Spinal instabilities of lumbar region 12/13/2019 Foraminal stenosis of lumbar region 12/13/2019 Facet arthropathy, lumbar 12/13/2019 Other intervertebral disc degeneration, lumbar r egion 12/13/2019 Radiculopathy, lumbar region 12/13/2019 Foot drop, right 11/15/2019 Pulmonary nodule 01/24/2015 Overview (10/28/2019): Date Onset: 01/24/2015 Allergic rhinitis 01/23/2014 Overview (10/28/2019): Date Onset: 01/23/2014 History of gastric ulcer 01/23/2014 Overview (10/28/2019): Date Onset: 01/23/2014 Collagenous colitis 06/14/2013 Overview (10/28/2019): Date Onset: 06/14/2013 Hyperlipidemia 01/06/2011 Family History Medical History Relation Comments Heart Father Hypertension Father Obesity Father pneumonia Father Aneurysm Mother brain Stroke Mother Breast Cancer Niece No Known Problems Son 1 No Known Problems Son 2 Relation Status Comments Father Mother Niece Son 1 Alive Son 2 Alive Social History Tobacco Use Types Packs/Day Years [...] Sign Reading Time Taken Comments Blood Pressure 132/74 11/02/2020 1:16 PM CDT Pulse 90 11/02/2020 1:16 PM CDT Temperature 37.1 C (98.7 F) 01/19/2020 3:17 PM STATE FARM AGENT Respiratory Rate 18 11/02/2020 1:16 PM CDT Oxygen Saturation 98% 11/02/2020 1:16 PM CDT Inhaled Oxygen Concentration - - Weight 70.3 kg (155 lb) 11/02/2020 1:16 PM CDT p er pt Height 174 cm (5' 8.5 ) 11/02/2020 1:16 PM CDT Body Mass Index 23.22 11/02/2020 1:16 PM CDT Plan of Treatment Health Maintenance Due Date Last Done Comments RSV Immunization or 60+ Years (1 - Risk 60-74 years 1-dose series) 2012 Annual Medicare Wellness Visit 2017 Dexa Scan (General) 2017 Pneumococcal Vaccine: 65+ Years (2 of 2 - PPSV23 or PCV20) 07/25/2020 07/26/2019 DTaP, Tdap and Td Vaccines (2 - Td or Tdap) 09/13/2023 09/12/2013 COVID-19 Vaccine ( season) 2023 01/08/2021, 05/15/2020, 04/12/2020 Influenza Adult (#1) 2023 12/04/2020, 11/22/2018, 11/29/2017, Additional history exists Mammogram Screening 02/20/2024 02/19/2022 Colorectal Cancer Screening Colonoscopy (10 Years) 10/29/2027 10/28/2017 Hepatitis C Completed 06/28/2014 Zoster Vaccines Completed 02/13/2020, 12/14/2019 Meningococcal B Vaccine Aged Out No l onger eligible based on patient's age to complete this topic Meningococcal Vaccine Aged Out No sukhwinder natan eligible based on patient's age to complete this topic RSV Immunizations Under 20 Months Aged Out No longer eligible based on patient's age to complete this topic Medical Devices Implanted Type Area Convenience Store Clerk Device Identifier Shelf Expiration Date Model / Serial / Lot Graft Infuse Bone Small - [id number] Implanted:Qty: 1 on 01/12/2020 by Flex Smith MD at [facility] N/A: Spine Lumbar [employer] 12/06/2021 [id number] / / [id number] Progenix Plus Spinalgraft Putty 2.5cc - [id number] Implanted:Qty: 1 on 01/12/2020 by Flex Smith MD at [facility] N/A: Spine Lumbar [employer] 07/04/2021 [id number] / / [id number] 2 Hole Plate Implanted:Qty: 1 on 01/12/2020 by Flex Smith MD at [facility] N/A: Spine Lumbar [employer] 10/26/2027 [id number] / / [id number] Screw Implanted:Qty: 2 on 01/12/2020 by Flex Smith MD at [facility] N/A: Spine Lumbar [employer] 11/09/2027 [id number] / / [id number] Interbody Implanted:Qty: 1 on 01/12/2020 by Flex Smith MD at [facility] N/A: Spine Lumbar [employer] 11/01/2026 [id number] / / [id number] 6.5 X 45 Screw Implanted:Qty: 2 on 01/12/2020 by Flex Smith MD at [facility] N/A: Spine Lumbar [employer] [id number] / / 4.75 X 40 [place] Implanted:Qty: 1 on 01/12/2020 by Flex Smith MD at [facility] N/A: Spine Lumbar [employer] [id number] / / Voyager Set Screws Implanted:Qty: 2 on 01/12/2020 by Flex Smith MD at [facility] N/A: Spine Lumbar [employer] [id number] / / Procedures Procedure Name Priority Date/Time Associated Diagnosis Comments MG SCREENING W MARTHA MICHAEL DIGI Routine 02/19/2022 9:30 AM STATE FARM AGENT Encounter for screening mammogram for malignant neoplasm of breast COLONOSCOPY/EGD GENERIC (SCAN ORDER) 10/28/2017 HEPATITIS PANEL,ACUTE Routine 06/28/2014 8:40 AM CDT from Last 3 Months or Most Recently Relevant to Health Maintenance Results * MG SCREENING W MARTHA MICHAEL DIGI (02/19/2022 9:30 AM STATE FARM AGENT) Anatomical Region Laterality Modality Breast Bilateral Computed Tomogra phy, Other 02/19/2022 10:1 5 AM STATE FARM AGENT Narrative 02/19/2022 10:28 AM STATE FARM AGENT IMAGING STUDIES: Bilateral screening mammograms with computer-aided detection with 2-D and 3-D imaging. Tomosynthesis. DATE: 02/19/2022 9:16 AM HISTORY: Encounter for screening mammogram for malignant neoplasm of breast . COMPARISON: 02/08/2020. 02/13/2021. TISSUE TYPE: There are scattered areas of fibroglandular density. FINDINGS: 1. Mild to moderate scattered fibroglandular tissue pattern is present. Benign nodularity. Benign calcifications. Left-sided biopsy clip. 2. No malignant microcalfcifications, new dominant masses, or architectural distortion. Similar slightly asymmetric breast parenchyma in the upper outer quadrant of the left breast dating back to 2019. 3. No skin thickening or nipple retraction. Axillary regions are within normal limits. IMPRESSION: 1. No mammographic evidence of malignancy. 2. Assessment: ACR BI-RADS 2 - BENIGN FINDING(S) 3 .Routine Screening Bilateral MQSA BI-RADS Categories: Category 0 - needs additional imaging evaluation. Category 1 - negative. Category 2 - benign findings. Category 3 - probably benign findings, but short interval follow-up is recommended. Category 4 - suspicious abnormality and biopsy should be considered though the lesion may well be benign. Category 5 - highly suggestive of malignancy and appropriate action should be taken. Category 6 - known biopsy-proven malignancy A) A negative report should not delay a biopsy if a dominant or clinically suspicious mass is present. B) Adenosis and dense breasts may obscure an underlying neoplasm. C) Study interpreted with computer aided detection. Ordered By: REHANA BOWSER Interpreted By: Nba Hope, 02/19/2022 10:15 AM us Rehana Bowser MD MAMMO Final Result * COLONOSCOPY/EGD GENERIC (10/28/2017) 10/28/2017 Narrative 10/28/2017 Ordered by an unspecified provider. us Documents Scanned SCANNING Final Result * HEPATITIS PANEL,ACUTE (06/28/2014 8:40 AM CDT) HAV IGM NON-REACTIVE NON-REACT [facility] TO EPIC CONVERSION HEPATITIS B SURFACE AG NON-REACTIVE NON-REACT [facility] TO EPIC CONVERSION HEP B CORE IGM NON-REACTIVE NON-REACT [facility] TO EPIC CONVERSION HEPATITIS C AB NON-REACTIVE NON-REACT [facility] TO EPIC CONVERSION SIGNAL TO CUTOFF 0.02 <1.00 [facility] TO EPIC CONVERSION Comment:WILNER TERRAZASDO ,MPH REPORT STATUS Not required [facility] TO EPIC CONVERSION Comment: THIS TEST WAS PERFORMED AT [facility] [id number] [place] [id number] 06/28/2014 8:40 AM CDT 06/28/2014 8:40 AM CDT Narrative [facility] TO EPIC CONVERSION - 06/29/2014 12:16 PM CDT This lab was migrated from [facility] and may be missing annotations or result text, please check the Media tab for the most complete results. us Luis Parrish MD LABORATORY Final Result [facility] TO EPIC CONVERSION from Last 3 Months or Most Recently Relevant to Health Maintenance Insurance MED REPLACE [facility] MEDICARE Advance Directives Documents on File Type Date Recorded Patient Visual Presentation Manager Expl anation Advance Directives and Living Will 01/14/2020 8:11 AM 08-08-2009 signed Alyssa Pitts, Contract Paralegal for Health Care, MARIELLA Advance Directives and Living Will 06/23/2014 12:00 AM ADVANCED DIRECTIVES Advance Directives and Living Will 05/08/2014 12:00 AM ADVANCED DIRECTIVES Advance Directives and Living Will 01/18/2014 12:00 AM ADVANCED DIRECTIVES Advance Directives and Living Will 10/27/2013 12:00 AM ADVANCED DIRECTIVES Advance Directives and Living Will 06/14/2013 12:00 AM ADVANCED DIRECTIVES Advance Directives and Living Will 05/19/2013 12:00 AM ADVANCED DIRECTIVES Advance Directives and Living Will 01/27/2013 12:00 AM ADVANCED DIRECTIVES * Full Code (Latest Code Status on File) Date Activated Date Inactivated Comments 01/12/2020 2:40 PM 01/13/2020 7:20 PM Care Teams Commutator Tester Relationship Specialty Start Date End Date Luis Parrish MD [address] [place] [address] PCP - General PEDIATRICS 01/06/20
--- OUTSIDE RECORDS SUMMARY | 2024-04-19 13:46 | XMS_ITS | Encounter Summary ---
Author Organization [facility] Address [address] [place] [address] Care Team Providers Care Cracking Still Operator Name Role Phone Luis Parrish MD Primary Care Provider + [phone] Encounter Details Date Type Department Care Team (Late st Contact Info) Description 08/20/2020 Nimsoftt Message Enc [facility] Multispecialty Care - [facility] [address], [address] [place] [phone] Flex Smith MD [address] [place], [place] [phone] RE: Question Social History Tobacco Use Types [...] on file Sexual Orientation Not on file documented as of this encounter Functional Status * RETIRED Are you deaf or do you have serious difficulty hearing Answer Date of Assessment Author Status No 01/12/2020 2:53 PM EMPLOYEE COUNSELOR Activ e * RETIRED Are you blind or do you have serious difficulty seeing, even when wearing glasses? Answer Date of Assessment Author Status No 01/12/2020 2:53 PM EMPLOYEE COUNSELOR Activ e * Do you have serious difficulty walking [...] on filedocumented in this encounter Care Teams Cracking Still Operator Relationship Specialty Start Date End Date Luis Parrish MD [address] [place] [id number] PCP - General PEDIATRICS 01/06/20 documented as of this encounter
--- OUTSIDE RECORDS SUMMARY | 2024-04-19 13:46 | XMS_ITS | Clinical Summary ---
Author Organization [facility] Address [address] [place] [address] Care Team Providers Care Laborer Ammunition Assembly Name Role Phone Rehana Ceron MD Primary Care Provider Allergies Active Allergy Reactions Criticality Noted Date Comments Erythromycin Rash Low 01/06/2011 Large welts Ilosone Hives High 05/12/2023 Medications alendronate (FOSAMAX) 70 mg tablet Take 70 mg by mouth every 7 days. empty stomach before other meds,with 8oz of water, stay upright 30 min Takes on Thursday Active traZODone (DESYREL) 50 mg tablet Take 25-50 mg by mouth daily at bedtime. Active busPIRone (BUSPAR) 5 mg tablet Take 5 mg by mouth 3 times daily. Active CALCIUM CARBONATE ORAL Take by mouth. Active multivitamin (DAILY-GIANFRANCO) tablet Take 1 Tablet by mouth daily. Active cetirizine (ZyrTEC) 5 mg tablet Take 10 mg by mouth. Take daily as needed Active elderberry fruit (ELDERBERRY ORAL) Take by mouth. Activ e Cranberry 400 mg Capsule Take by mouth. Acti ve aspirin (ECOTRIN EC) 81 mg Tablet, Delayed Release (E.C.) Take 81 mg by mouth daily. Active tamoxifen (NOLVADEX) 20 mg tablet Take 1 Tablet (20 mg) by mouth daily. 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 Anti-estrogen therapy: Tamoxifen 20 mg daily started September 21, 2023. Breast calcification, left 05/12/2023 Facet arthropathy, lumbar 12/13/2019 Radiculopathy, lumbar region 12/13/2019 Foot drop, right 11/15/2019 Allergic rhinitis 01/23/2014 Overview (01/21/2024): Date Onset: 01/23/2014 Encounters Date Type Department Care Team Description 03/30/2024 External Device Data STL ABSTRACTION Provider, Abstract 03/29/2024 External Device Data STL ABSTRACTION Provider, Abstract 03/23/2024 External Device Data STL ABSTRACTION Provider, Abstract 02/02/2024 Orders Only [facility] [address] [place] [address] Oskar Avalos MD 02/01/2024 2:45 PM PHARMACY RESOURCE TECH Office Visit [facility] [address] [place] [address] Oskar Avalos MD Breast neoplasm, Tis (DCIS), left (Primary Dx) 01/21/2024 11:30 AM PHARMACY RESOURCE TECH Office Visit [facility] [place] [address] [place] [phone] Sabrina Scott MD Breast neoplasm, Tis (DCIS), left (Primary Dx) 01/21/2024 10:10 AM PHARMACY RESOURCE TECH - 01/21/2024 11:59 PM PHARMACY RESOURCE TECH Hospital Encounter [facility] [place] [address] [place] [phone] Sabrina Scott MD Discharge Disposition: Home or Self Care from Last 3 Months Family History Medical History Relation Name Comments Breast Cancer Neg Hx Ovarian Cancer Neg Hx Social History Tobacco Use Types Packs/Day Years Used Date Smoking Tobacco: Never Smokeless Tobacco: Never Tobacco Cessation:Counseling Given: Not Answered Alcohol Use Standard Drinks/Week Comments Yes 0 (1 standard drink = 0.6 oz pur e alcohol) 0-2 per month Feeling Safe Answer Date Recorded Within the last year, have y ou been afraid of your partner or ex-partner? No 01/21/2024 Emotionally Abused Not on file 01/21/2024 Within the last year, have y ou been kicked, hit, slapped, or otherwise physically hurt by your partner or ex-partner? No 01/21/2024 Sexually Abused Not on file 01/21/2024 Feeling Safe Answer Date Recorded Are you in a relationship wi th someone who hurts you emotionally and/or physically? No 07/13/2023 Food Insecurity Answer Date Recorded Social/Environmental Concerns No concerns Transportation Needs Answer Date Record ed Social/Environmental Concerns No concerns Housing Stability Answer Date Recorded Social/Environmental Concerns No concerns Utility Needs Answer Date Recorded Social/Environmental Concerns No concerns Comments No Sex and Gender Information Value Date Recorded Sex Assigned at Not on file Legal Sex Female 5:56 AM PHARMACY RESOURCE TECH Gender Identity Not on file Sexual Orientation Not on file Last Filed Vital Signs Vital Sign Reading Time Taken Comments Blood Pressure 167/92 02/01/2024 2:40 PM PHARMACY RESOURCE TECH Pulse 80 02/01/2024 2:40 PM PHARMACY RESOURCE TECH Temperature 36.5 C (97.7 F) 02/01/2024 2:40 PM PHARMACY RESOURCE TECH Respiratory Rate 16 02/01/2024 2:40 PM PHARMACY RESOURCE TECH Oxygen Saturation 95% 02/01/2024 2:40 PM PHARMACY RESOURCE TECH Inhaled Oxygen Concentration - - Weight 72.1 kg (159 lb) 02/01/2024 2:40 PM PHARMACY RESOURCE TECH Height 172.1 cm (5' 7.75 ) 01/21/2024 11:[address] Body Mass Index 24.35 01/21/2024 11:00 AM PHARMACY RESOURCE TECH Plan of Treatment Upcoming Encounters Date Type Department Care Team (Late st Contact Info) Description 06/03/2024 9:45 AM CDT Office Visit [facility] and H[facility]ology - [place] [address] [place] [phone] Oskar Avalos MD [address] [facility] [place] [place] [phone] 01/26/2025 10:30 AM PHARMACY RESOURCE TECH Appointment [facility] [place] [address] [place] [address] [place] [address] [place] [address] 01/26/2025 11:30 AM PHARMACY RESOURCE TECH Office Visit [facility] [place] [address] [place] [phone] [place] [address] [place] [address] Health Maintenance Due Date Last Done Comments FIT-DNA Q 3 years 1997 FIT/FOBT Q 1 year 1997 Flex Sig/CT Colonography Q 5 years 1997 OSTEOPOROSIS SCREENING 2017 DTAP/TDAP/TD VACCINES (2 - T d or Tdap) 09/13/2023 09/12/2013 COVID-19 Vaccine (2023-2 5 season) 2023 01/12/2023, 12/09/2021, 06/30/2021, Additional history exists BREAST CANCER SCREENING 01/20/2025 01/21/20, 02/19/2022, 09/17/2010, Additional history exists RSV VACCINE (60+ or ) (1 - 1-dose 75+ series) 06/12/2027 COLORECTAL SCREENING 10/29/2027 10/28/2017 Colorectal Cancer Screening 10/29/2027 ZOSTER VACCINE Completed 02/13/2020, 12/14/2019 PNEUMOCOCCAL VACCINE 65+ YEARS Completed 1 , 07/26/2019, 12/07/2012 INFLUENZA VACCINE Completed 12/15/2023, , 12/09/2021, Additional history exists Medical Devices Implanted Type Area Lamp Tester And Inspector Device Identifier Shelf Expiration Date Model / Serial / Lot Clip Ligating [facility] [id number] - Csc - [id number] Implanted:Qty: 1 on 07/06/2023 by Sabrina Scott MD at [facility] [place] Clip Left: Breast TELEFLEX- WECK CLOSURE SYS 12/02/2026 [id number] / / [id number] Procedures Procedure Name Priority Date/Time Associated Diagnosis Comments BASIC METABOLIC PANEL Routine 02/01/2024 11:15 AM PHARMACY RESOURCE TECH CBC WITH DIFFERENTIAL Routine 02/01/2024 11:03 AM PHARMACY RESOURCE TECH MAMMO 3D MARTHA DIAGNOSTIC BILAT W OR WO CAD Routine 01/21/2024 10:39 AM PHARMACY RESOURCE TECH Ductal carcinoma in situ (DCIS) of left breast from Last 3 Months Results * BASIC METABOLIC PANEL (02/01/2024 11:15 AM PHARMACY RESOURCE TECH) Blood us Oskar Avalos MD CHEMISTRY ORDERABLES Final Resu lt * CBC WITH DIFFERENTIAL (02/01/2024 11:03 AM PHARMACY RESOURCE TECH) Blood us Oskar Avalos MD HEMATOLOGY ORDERABLES Final Res ult * MAMMO 3D MARTHA DIAGNOSTIC BILAT W OR WO CAD (01/21/2024 10:39 AM PHARMACY RESOURCE TECH) Anatomical Region Laterality Modality Breast Bilateral Mammography 01/21/2024 10:3 9 AM PHARMACY RESOURCE TECH Impressions 01/21/2024 12:25 PM PHARMACY RESOURCE TECH IMPRESSION: No mammographic evidence of malignancy. RECOMMENDATIONS: Bilateral diagnostic mammogram in one year. DICTATION LOCATION: [facility] [place] Narrative 01/21/2024 12:25 PM PHARMACY RESOURCE TECH EXAM: BILATERAL DIAGNOSTIC FULL-FIELD DIGITAL MAMMOGRAM WITH CAD WITH 3D TOMOSYNTHESIS DATE: 01/21/2024 10:39 AM HISTORY: Personal history of breast cancer with prior left conservation therapy. TECHNIQUE: Mediolateral oblique, mediolateral and craniocaudal views of both breasts were performed using full-field digital mammography. Low-dose full-field digital breast tomosynthesis examination was performed with 2D and 3D acquisitions. Examination is read in conjunction with computer aided detection. COMPARISON: September 2010, February 2013 and March 2013 BREAST COMPOSITION: Scattered fibroglandular densities FINDINGS: Mammographic changes consistent with breast conservation therapy on the left are noted. No suspicious findings are seen on the mammogram. Since the prior exam, there has been no significant change. Computer aided detection detected no significant abnormality. OVERALL FINAL ASSESSMENT: BI-RADS CATEGORY 2 - Benign findings Procedure Note Gerson Burleson MD - 01/21/2024 EXAM: BILATERAL DIAGNOSTIC FULL-FIELD DIGITAL MAMMOGRAM WITH CAD WITH 3D TOMOSYNTHESIS DATE: 01/21/2024 10:39 AM HISTORY: Personal history of breast cancer with prior left conservation therapy. TECHNIQUE: Mediolateral oblique, mediolateral and craniocaudal views of both breasts were performed using full-field digital mammography. Low-dose full-field digital breast tomosynthesis examination was performed with 2D and 3D acquisitions. Examination is read in conjunction with computer aided detection. COMPARISON: September 2010, February 2013 and March 2013 BREAST COMPOSITION: Scattered fibroglandular densities FINDINGS: Mammographic changes consistent with breast conservation therapy on the left are noted. No suspicious findings are seen on the mammogram. Since the prior exam, there has been no significant change. Computer aided detection detected no significant abnormality. OVERALL FINAL ASSESSMENT: BI-RADS CATEGORY 2 - Benign findings IMPRESSION: No mammographic evidence of malignancy. RECOMMENDATIONS: Bilateral diagnostic mammogram in one year. DICTATION LOCATION: [facility] Sabrina Scott MD MAMMO ORDERABLES Final Result from Last 3 Months Insurance [employer] PPO [facility] AET[employer] PPO MCR Care Teams Laborer Ammunition Assembly Relationship Specialty Start Date End Date Rehana Ceron MD [address] [place] [address] PCP - General Family Practice 07/22/23
--- OUTSIDE RECORDS SUMMARY | 2024-04-19 13:46 | XMS_ITS | Referral Summary ---
Author Organization [facility] Address [address] [place] [address] Care Team Providers Care Control Operator Flow Coat Name Role Phone Wes Parrish MD Primary Care Provider [phone] Rehana Ceron MD Unavailable [phone] Source Comments [facility],non-owned Affiliates and Associated Physician Practices is amultiple site organization consisting of ambulatory clinics and hospital sitesin [place], [place], [place] and [place]. This disclosure is being madepursuant to the Care Everywhere program and may not contain all information available regarding this patient. Last updated 17.[facility] Allergies Active Allergy Reactions Criticality Noted Date Comments Erythromycin Unknown 12/04/2015 Medications * Be aware that medications may not be up to date on this document. Alwaysverify current medications with the patient. Medication Sig Dispensed Refills Start Date End Date Status sulfaSALAzine (AZULFIDINE) 500 MG tablet Take 500 mg by mouth 4 times daily Active levocetirizine (XYZAL) 5 MG tablet Take 5 mg by mouth once daily Active Fish Oil Active Calcium Carb-Cholecalcifero l (CALCIUM + D3 PO) Activ e aspirin (ASPIRIN) 81 MG tablet Take 81 mg by mouth once daily Active Probiotic Product (PROBIOTIC PO) Active benzonatate (TESSALON) 100 MG capsuleIndications: Acute frontal sinusitis, unspecified You can take 1-2 tablets PO TID PRN, max dose 6 tablets in 24 hours. 30 Cap 04/14/2016 Active Additional Information Patient not taking.Reported on 12/15/2018 benzonatate (TESSALON) 200 MG capsule Take 1 capsule by mouth 3 times daily as needed for Cough 30 capsule 12/15/2018 Active Social History Tobacco Use Types Packs/Day Years [...] Mass Index 25.09 12/15/2018 9:39 AM CDT Plan of Treatment Not on file Care Teams Control Operator Flow Coat Relationship Specialty Start Date End Date Wes Parrish MD [address] [place] [id number] PCP - General 08/20/20 Rehana Ceron MD [address] [place] [address] Family Medicine 08/20/20
--- OUTSIDE RECORDS SUMMARY | 2024-04-19 13:46 | XMS_ITS | Encounter Summary ---
Author Organization [facility] Address [address] [place] [address] Care Team Providers Care Rn Vascular Name Role Phone Luis Parrish MD Primary Care Provider [phone] Encounter Details Date Type Department Care Team (Late st Contact Info) Description 07/12/2020 MyChart Message Enc [facility] Medical Group Multispecialty Care - [facility] [address] [facility], [address] [place] [phone] Flex Smith MD [address] [place], [place] [phone] RE: Question Social History Tobacco Use Types [...] have Coronavirus / COVID-19? No / Unsure 07/11/2020 8:32 AM CDT documented as of this encounter Functional Status * RETIRED Are you deaf or do you have serious difficulty hearing Answer Date of Assessment Author Status No 01/12/2020 2:53 PM FIXING CARPENTER Activ e * RETIRED Are you blind or do you have serious difficulty seeing, even when wearing glasses? Answer Date of Assessment Author Status No 01/12/2020 2:53 PM FIXING CARPENTER Activ e * Do you have serious [...] on filedocumented in this encounter Care Teams Rn Vascular Relationship Specialty Start Date End Date Luis Parrish MD [address] [place] [address] PCP - General PEDIATRICS 01/06/20 documented as of this encounter
--- OUTSIDE RECORDS SUMMARY | 2024-04-19 13:46 | XMS_ITS | Encounter Summary ---
Author Organization [facility] Address [address] [place] [address] Care Team Providers Care Bulk Sealer Operator Name Role Phone Luis Parrish MD Primary Care Provider [phone] Encounter Details Date Type Department Care Team (Latest Contact Info) Description 01/20/2020 [employer] Message Enc [facility] Medical Group Multispecialty Care - [facility] [address] [facility], [address] [place] [address] Merlene Lara APRN [address] [facility] [address] [place] [address] RE: Medication Questions Social History Tobacco Use Types Packs/Day Years [...] have Coronavirus / COVID-19? No / Unsure 01/19/2020 3:[address] AW[address] DRIVER documented as of this encounter Functional Status * RETIRED Are you deaf or do you have serious difficulty hearing Answer Date of Assessment Author Status No 01/12/2020 2:[address] AW[address] DRIVER Activ e * RETIRED Are you blind or do you have serious difficulty seeing, even when wearing glasses? Answer Date of Assessment Author Status No 01/12/2020 2:[address] DRIVER Activ e * Do you have serious [...] Zambrano RN Active documented in this encounter Progress Notes * Jazmine Carter MA - 01/24/2020 10:56 AM CST Spoke with pt on yesterday please see pt phone call encounter in chart. Pt was told that all information was sent to Carmelita and to give her a few days to get everything done so that Carmelita can have time to contact insurance etc. Pt stated understanding. E AWAY DRIVER documented in this encounter Plan of Treatment Not on file documented as of this encounter Visit Diagnoses Not on filedocumented in this encounter Care Teams Bulk Sealer Operator Relationship Specialty Start Date End Date Luis Parrish MD [address] [place] [address] PCP - General PEDIATRICS 01/06/20 documented as of this encounter
--- OUTSIDE RECORDS SUMMARY | 2024-04-19 13:46 | XMS_ITS | Clinical Summary ---
Author Organization [facility] [employer] Address [address] [facility] [place] [address] Care Team Providers Care Line And Frame Poler Name Role Phone Wes Parrish MD Primary Care Provider [phone] Rehana Ceron MD Unavailable [phone] Source Comments [facility],non-owned Affiliates and Associated Physician Practices is amultiple site organization consisting of ambulatory clinics and hospital sitesin [place], [place], [place] and [place]. This disclosure is being madepursuant to the Care Everywhere program and may not contain all information available regarding this patient. Last updated 17.[facility] Allergies Active Allergy Reactions Criticality [...] needed for Cough 30 capsule 12/15/2018 Active Family History Medical History Relation Name Comments COPD - Chronic Obstructive Pulmonary Disease Father Relation Name Status Comments Father Social History Tobacco Use Types Packs/Day Years [...] 12/15/2018 9:39 AM CDT Plan of Treatment Health Maintenance Due Date Last Done Comments BONE DENSITY TESTING 1950 COLOGUARD (AGES 45-75) - COL ON CA SCREENING 1952 COLON MONITORING 1952 COLONOSCOPY - COLON CA SCREENING 1952 CT COLONOGRAPHY - COLON CA SCREENING 1950 Colorectal Cancer Screening 1952 FIT - COLON CA SCREENING 1952 FLEX SIG - COLON CA SCREENING 1952 LIPID TESTING 1952 MAMMOGRAM 1952 HEPATITIS C SCREENING 06/07/1970 DTAP/TDAP/TD VACCINES (1 - Tdap) 06/12/1971 PNEUMOCOCCAL VACCINE 50+ (1 of 1 - PCV) 2002 ZOSTER VACCINE (1 of 2) 2002 SCREENING FOR DIABETES 12/15/2018 COVID-19 VACCINE (1 - 2023-2 5 season) 2023 INFLUENZA VACCINE (#1) 2023 DEPRESSION SCREENING 03/09/2024 MEDICARE AWV CALENDAR YEAR 2024 Respiratory Syncytial Virus (RSV) Vaccine Pt: or over 60 yrs (1 - 1-dose 75+ series) 06/12/2027 HEPATITIS B VACCINE Aged Out No longe r eligible based on patient's age to complete this topic HIB VACCINE Aged Out No longer eligi ble based on patient's age to complete this topic HPV VACCINE Aged Out No longer eligi ble based on patient's age to complete this topic MENINGOCOCCAL (Group B) VACCINE Aged Out No longer eligible based on patient's age to complete this topic MENINGOCOCCAL VACCINE Aged Out No sukhwinder natan eligible based on patient's age to complete this topic Care Teams Line And Frame Poler Relationship Specialty Start Date End Date Wes Parrish MD [address] [place] [address] PCP - General 08/20/20 Rehana Ceron MD [address] [place] [address] Family Medicine 08/20/20
== END 2024-04-19 12:58 | disposition home or self-care (01) ==
PROVIDERS: PCP Physician Assistant; Visit Provider Physician Assistant
DX: K57.32 Diverticulitis of large intestine without perforation or abscess without bleeding (principal)
CPT/HCPCS: 74177; Q9967

== ENCOUNTER 2024-04-19 14:48 | Inpatient (IN) | payer MEDICARE, SELFPAY ==
[2024-04-19] VITALS (13 sets, daily range): BP systolic 100–153; BP diastolic 54–87; PULSE 91–109; RESP 17–28; TEMP 37.3; O2SAT 96–100; BMI 25.6
--- NOTE | 2024-04-19 15:02 | ED_ITS ---
HPI - General Adult General Chief complaint: Abdominal Pain <Alana Romero PA-C - Last Filed: 04/19/24 15:05> Stated complaint: outpt CT perforated diverticulitis <HA Garay Last Filed: 04/19/24 15:05> Time Seen by Provider: 04/19/24 14:56 <Alana Romero PA-C - Last Filed: 04/19/24 15:05> Focused HPI: Patient is a 73 y/o female, with PMH of collagenous colitis, who presents to the ED with c/o abnormal outpatient CT abd/pelvis. Reports having pain throughout her R lower abdomen since Thursday. Reports pain has been worsening. Reports N/V, profuse diarrhea last night. Denies rectal bleeding. Denies fevers. Reports last colonoscopy was 2017. GENERAL: Elderly but well-appearing, well-nourished, and in no acute distress. HEAD: Normocephalic, atraumatic. CHEST: Clear to auscultation. ?No respiratory distress. HEART: Regular rate and rhythm.? ABD: Focal TTP in lower abd. NEURO: ?Alert and oriented x3. Patient screened in triage and initial orders placed.? ?Additional care and disposition to be based upon?diagnostic testing and treatment. <Alana Romero PA-C - Last Filed: 04/19/24 15:05> Source: patient and old records reviewed <Alana Romero PA-C - Last Filed: 04/19/24 15:05> Mode of arrival: ambulatory <Alana Romero PA-C - Last Filed: 04/19/24 15:05> Limitations: no limitations <HA Garay Last Filed: 04/19/24 15:05> History of Present Illness HPI narrative: agree with HPI <Bekah Vivas MD - Last Filed: 04/19/24 17:19> Related Data Home medications: Home Medications ?Medication ?Instructions ?Recorded ?Confirmed ?Last Taken ?Type aspirin 81 mg tablet,delayed 81 mg PO HS 08/15/20 10/27/23 11/07/21 History release sulfasalazine 500 mg tablet 500 mg PO QAM 08/15/20 10/27/23 08/16/20 History trazodone 50 mg tablet 25 mg PO HS PRN Sleep 08/15/20 10/27/23 08/16/20 History alendronate 70 mg tablet 70 mg PO WEEKLY 03/05/21 10/27/23 Unknown History calcium carb-ergocalciferol (vit 1 tablet PO QAM 03/05/21 10/27/23 Unknown History D2) 600 mg calcium-200 unit tablet elderberry fruit 200 mg capsule 200 mg PO QAM 03/05/21 10/27/23 Unknown History levocetirizine 5 mg tablet 5 mg PO QAM 03/05/21 10/27/23 Unknown History multivitamin 1 tablet PO DAILY 03/05/21 10/27/23 03/03/21 History buspirone 5 mg tablet 5 mg BID-TID PRN Anxiety 11/06/21 10/27/23 11/15/21 History cranberry 1 cap QAM 11/06/21 10/27/23 Unknown History tamoxifen 20 mg tablet 20 mg PO DAILY 10/27/23 10/27/23 Unknown History <Alana Romero PA-C - Last Filed: 04/19/24 15:05> Allergies/adverse reactions: Allergies Allergy/AdvReac Type Severity Reaction Status Date / Time erythromycin base (From Allergy Intermediate Rash Verified 04/19/24 15:05 Ilosone) <Alana Romero PA-C - Last Filed: 04/19/24 15:05> Review of Systems 2 Review of Systems: All systems reviewed & are unremarkable except as noted in HPI and below <Bekah Vivas MD - Last Filed: 04/19/24 17:19> [facility] Past Medical History Medical History: Medical History Anxiety Arthritis <Alana Romero PA-C - Last Filed: 04/19/24 15:05> Social History Social History: Social History Smoking status: Never smoker Second hand tobacco smoke exposure: No Alcohol intake: current Drinks per week: 3 Substance use: never Substance use type: does not use Living arrangements: with family Additional living arrangements comments: [facility] Gender identity (if verbalized by the patient): Female Sexual Orientation (if Verbalized by the Patient): Straight or Heterosexual Spiritual care concerns: No <HA Garay Last Filed: 04/19/24 15:05> Exam 2 Narrative: EXAMINATION OF ORGAN SYSTEMS/BODY AREAS: Constitutional: Vital signs per nursing GENERAL:[No acute distress, non-toxic appearing.] HEAD: Normal with no signs of head trauma. EYES: EOMI, conjunctiva normal ENT: Hearing grossly intact LUNGS: Nonlabored breathing. HEART: [Regular rate and rhythm] ABD: [Soft], slight tenderness to the right lower abdomen EXT: Normal range of motion SKIN: [No rashes or lesions.] NEURO: [Alert and oriented x 3. No gross focal sensory or strength deficits.] PSYCH: Normal affect <Bekah Vivas MD - Last Filed: 04/19/24 17:19> Course Vital Signs Vital signs: Vital Signs Pulse Rate 99 04/19/24 16:06 Respiratory Rate 19 04/19/24 16:06 Blood Pressure 139/84 04/19/24 16:06 Pulse Oximetry 99 04/19/24 16:06 Pulse Rate 96 04/19/24 16:31 Respiratory Rate 17 04/19/24 16:31 Blood Pressure 145/64 H 04/19/24 16:31 Pulse Oximetry 100 04/19/24 16:31 <Alana Romero PA-C - Last Filed: 04/19/24 15:05> Vital Signs Pulse Rate 99 04/19/24 16:06 Respiratory Rate 19 04/19/24 16:06 Blood Pressure 139/84 04/19/24 16:06 Pulse Oximetry 99 04/19/24 16:06 Pulse Rate 96 04/19/24 16:31 Respiratory Rate 17 04/19/24 16:31 Blood Pressure 145/64 H 04/19/24 16:31 Pulse Oximetry 100 04/19/24 16:31 <Bekah Vivas MD - Last Filed: 04/19/24 17:19> Medical Decision Making MDM Narrative Medical decision making narrative: MSE by SHAE in triage. <Alana Romero PA-C - Last Filed: 04/19/24 15:05> MSE by SHAE in triage. // Patient with lower abdominal pain, loss of appetite, nausea, vomiting, diarrhea for the last few days, CT outpatient unfortunately shows perforated diverticulitis with abscesses, she has a white count, I started her on antibiotics, discussed case with IR who reviewed imaging and do feel they can drain her here. Discussed with hospitalist and surgeon for admission. Discussed with patient and family member at bedside. <Bekah Vivas MD - Last Filed: 04/19/24 17:19> Vital Signs Vital Signs: Vital Signs Pulse Rate 99 04/19/24 16:06 Respiratory Rate 19 04/19/24 16:06 Blood Pressure 139/84 04/19/24 16:06 Pulse Oximetry 99 04/19/24 16:06 Pulse Rate 96 04/19/24 16:31 Respiratory Rate 17 04/19/24 16:31 Blood Pressure 145/64 H 04/19/24 16:31 Pulse Oximetry 100 04/19/24 16:31 <Alana Romero PA-C - Last Filed: 04/19/24 15:05> Vital Signs Pulse Rate 99 04/19/24 16:06 Respiratory Rate 19 04/19/24 16:06 Blood Pressure 139/84 04/19/24 16:06 Pulse Oximetry 99 04/19/24 16:06 Pulse Rate 96 04/19/24 16:31 Respiratory Rate 17 04/19/24 16:31 Blood Pressure 145/64 H 04/19/24 16:31 Pulse Oximetry 100 04/19/24 16:31 <Bekah Vivas MD - Last Filed: 04/19/24 17:19> Lab Data Result diagrams: 04/19/24 15:15 04/19/24 15:15 <Alana Romero PA-C - Last Filed: 04/19/24 15:05> Labs: Lab Results 04/19/24 Range/Units 15:15 WBC 14.4 H (4.5-10.0) K/mm3 RBC 4.48 (4.2-5.4) M/mm3 Hgb 14.0 (12.0-15.0) g/dL Hct 41.8 (37.0-47.0) % MCV 93.3 (80-100) fl MCH 31.3 (26-34) pg MCHC 33.5 (32-36) g/dl RDW 13.2 (11.5-14.5) % Plt Count 339 (150-375) k/mm3 MPV 9.8 (7.4-10.4) fl Immature Gran % (Auto) 0.3 (0-0.5) % Neut % (Auto) 87.3 H (45.5-73.1) % Lymph % (Auto) 5.2 L (18.3-44.2) % Holmes % (Auto) 6.8 (2.6-8.5) % Eos % (Auto) 0.2 (0-4.4) % Baso % (Auto) 0.2 (0.2-1.2) % Lymph # (Auto) 0.75 L (0.9-3.2) K/mm3 Holmes # (Auto) 1.0 H (0.1-0.6) K/mm3 Eos # (Auto) 0.0 (0-0.3) K/mm3 Baso # (Auto) 0.0 (0.0-0.1) K/mm3 Abs Immat Gran (auto) 0.04 H (0.00-0.031) K/mm3 Absolute Neuts (auto) 12.6 H (1.3-6.7) K/mm3 Absolute Nucleated RBC 0.000 (0.0-0.012) K/mm3 Nucleated RBC % 0.0 (0.0-0.2) % Sodium 137 (137-145) mmol/L Potassium 3.4 (3.4-5.0) mmol/L Chloride 98 (98-107) mmol/L Carbon Dioxide 24 (22-30) mmol/L Anion Gap 15 H (4-12) mmol/L BUN 25 H (7-17) mg/dL Creatinine 0.77 (0.7-1.0) mg/dL Estim Creat Clear Calc 57 ml/min Estimated GFR > 60 (59 - ) Glucose 122 H (65-110) mg/dL Lactic Acid 1.6 (0.7-2.0) mmol/L Calcium 9.4 (8.4-10.2) mg/dL Total Bilirubin 0.9 (0.2-1.3) mg/dL AST 17 (14-36) U/L ALT 15 (6-35) U/L Alkaline Phosphatase 114 (38-126) U/L Total Protein 8.0 (6.3-8.2) g/dL Albumin 3.8 (3.5-5.1) g/dL <Alana Romero PA-C - Last Filed: 04/19/24 15:05> Lab Results 04/19/24 Range/Units 15:15 WBC 14.4 H (4.5-10.0) K/mm3 RBC 4.48 (4.2-5.4) M/mm3 Hgb 14.0 (12.0-15.0) g/dL Hct 41.8 (37.0-47.0) % MCV 93.3 (80-100) fl MCH 31.3 (26-34) pg MCHC 33.5 (32-36) g/dl RDW 13.2 (11.5-14.5) % Plt Count 339 (150-375) k/mm3 MPV 9.8 (7.4-10.4) fl Immature Gran % (Auto) 0.3 (0-0.5) % Neut % (Auto) 87.3 H (45.5-73.1) % Lymph % (Auto) 5.2 L (18.3-44.2) % Holmes % (Auto) 6.8 (2.6-8.5) % Eos % (Auto) 0.2 (0-4.4) % Baso % (Auto) 0.2 (0.2-1.2) % Lymph # (Auto) 0.75 L (0.9-3.2) K/mm3 Holmes # (Auto) 1.0 H (0.1-0.6) K/mm3 Eos # (Auto) 0.0 (0-0.3) K/mm3 Baso # (Auto) 0.0 (0.0-0.1) K/mm3 Abs Immat Gran (auto) 0.04 H (0.00-0.031) K/mm3 Absolute Neuts (auto) 12.6 H (1.3-6.7) K/mm3 Absolute Nucleated RBC 0.000 (0.0-0.012) K/mm3 Nucleated RBC % 0.0 (0.0-0.2) % Sodium 137 (137-145) mmol/L Potassium 3.4 (3.4-5.0) mmol/L Chloride 98 (98-107) mmol/L Carbon Dioxide 24 (22-30) mmol/L Anion Gap 15 H (4-12) mmol/L BUN 25 H (7-17) mg/dL Creatinine 0.77 (0.7-1.0) mg/dL Estim Creat Clear Calc 57 ml/min Estimated GFR > 60 (59 - ) Glucose 122 H (65-110) mg/dL Lactic Acid 1.6 (0.7-2.0) mmol/L Calcium 9.4 (8.4-10.2) mg/dL Total Bilirubin 0.9 (0.2-1.3) mg/dL AST 17 (14-36) U/L ALT 15 (6-35) U/L Alkaline Phosphatase 114 (38-126) U/L Total Protein 8.0 (6.3-8.2) g/dL Albumin 3.8 (3.5-5.1) g/dL <Bekah Vivas MD - Last Filed: 04/19/24 17:19> Discharge Plan Discharge Clinical Impression: Diverticulitis of intestine with perforation and abscess <Alana Romero PA-C - Last Filed: 04/19/24 15:05> Patient Disposition: Still a Patient <Alana Romero PA-C - Last Filed: 04/19/24 15:05> Condition: Stable <Alana Romero PA-C - Last Filed: 04/19/24 15:05> Patient Language: German <Alana Romero PA-C - Last Filed: 04/19/24 15:05> Prescriptions: No Action tamoxifen 20 mg Tablet 20 mg PO DAILY sulfasalazine 500 mg tablet 500 mg PO QAM trazodone 50 mg tablet 25 mg PO HS PRN (Reason: Sleep) aspirin 81 mg Tablet,Delayed Release (Dr/Ec) 81 mg PO HS multivitamin Tablet 1 tablet PO DAILY Patient Comments: QAM alendronate 70 mg tablet 70 mg PO WEEKLY Patient Comments: TAKES ON THURSDAY calcium carbonate-vitamin D2 600 mg calcium- 200 unit Tablet 1 tablet PO QAM Patient Comments: EVERY OTHER DAY elderberry fruit 200 mg Capsule 200 mg PO QAM levocetirizine 5 mg Tablet 5 mg PO QAM cranberry 1 cap QAM buspirone 5 mg tablet 5 mg BID-TID PRN (Reason: Anxiety) <Alana Romero PA-C - Last Filed: 04/19/24 15:05> Follow-up/Referrals: Homero,HA Ackerman [Primary Care Provider] - <Alana Romero PA-C - Last Filed: 04/19/24 15:05>
[2024-04-19 15:22] LABS: Basophils Percent Auto 0.2 % (0.2-1.2); Eosinophils Percent Auto 0.2 % (0-4.4); Hematocrit 41.8 % (37.0-47.0); Immature Granulocyte Absolute 0.04 K/mm3 (0.00-0.031); Immature Granulocyte Percent A 0.3 % (0-0.5); Lymphocytes Absolute Auto 0.75 K/mm3 (0.9-3.2); Lymphocytes Percent Auto 5.2 % (18.3-44.2); Mean Corpuscular HGB Conc 33.5 g/dl (32-36); Mean Corpuscular Hemoglobin 31.3 pg (26-34); Mean Corpuscular Volume 93.3 fl (80-100); Mean Platelet Volume 9.8 fl (7.4-10.4); Monocytes Percent Auto 6.8 % (2.6-8.5); Neutrophils Absolute Auto 12.6 K/mm3 (1.3-6.7); Neutrophils Percent Auto 87.3 % (45.5-73.1); Platelet Count Result 339 k/mm3 (150-375); Red Blood Count 4.48 M/mm3 (4.2-5.4); Red Cell Distribution Width 13.2 % (11.5-14.5); White Blood Count 14.4 K/mm3 (4.5-10.0)
[2024-04-19 15:31] LABS: Lactic Acid Reflex 1.6 mmol/L (0.7-2.0)
--- OUTSIDE RECORDS SUMMARY | 2024-04-19 15:31 | XMS_ITS | Encounter Summary ---
Author Organization [facility] [place] [facility] Address [address] [place] [address] Care Team Providers Care Bridge Gang Worker Name Role Phone Luis Parrish MD Primary Care Provider [phone] Encounter Details Date Type Department Care Team (Late st Contact Info) Description 08/20/2020 [employer] Message Enc [facility] Medical Group Multispecialty Care - [facility] [address] [facility], [address] [place] [phone] Flex Smith MD [address] [place], [place] [id number] RE: Question Social History Tobacco Use Types [...] Assessment Author Status No 01/12/2020 2:53 PM ENVIRONMENTAL FIELD TECHNICIAN Activ e * RETIRED Are you blind or do you have serious difficulty seeing, even when wearing glasses? Answer Date of Assessment Author Status No 01/12/2020 2:53 PM ENVIRONMENTAL FIELD TECHNICIAN Activ e * Do you have serious [...] on filedocumented in this encounter Care Teams Bridge Gang Worker Relationship Specialty Start Date End Date Luis Parrish MD [address] [place] [id number] PCP - General PEDIATRICS 01/06/20 documented as of this encounter
--- OUTSIDE RECORDS SUMMARY | 2024-04-19 15:31 | XMS_ITS | Encounter Summary ---
Author Organization [facility] Address [address] [place] [address] Care Team Providers Care Summer Nanny Name Role Phone Lusi Parrish MD Primary Care Provider + [phone] Encounter Details Date Type Department Care Team (Late st Contact Info) Description 02/21/2020 Mithridiont Message Enc [facility] Medical Group Multispecialty Care - [facility] [address] [facility], [address] [place] [address] Merlene Lara, ROCKY [address] [facility] [address] [place] [address] RE: Question Social History Tobacco Use Types [...] COVID-19? No / Unsure 02/16/2020 11:36 AM FISH PITCHER documented as of this encounter Functional Status * RETIRED Are you deaf or do you have serious difficulty hearing Answer Date of Assessment Author Status No 01/12/2020 2:53 PM FISH PITCHER Activ e * RETIRED Are you blind or do you have serious difficulty seeing, even when wearing glasses? Answer Date of Assessment Author Status No 01/12/2020 2:53 PM FISH PITCHER Acti ve * Do you have serious [...] on filedocumented in this encounter Care Teams Summer Nanny Relationship Specialty Start Date End Date Luis Parrish MD [address] [place] [id number] PCP - General PEDIATRICS 01/06/20 documented as of this encounter
--- OUTSIDE RECORDS SUMMARY | 2024-04-19 15:31 | XMS_ITS | Clinical Summary ---
Author Organization [facility] [employer] Address [address] [place] [address] Care Team Providers Care Geosciences Professor Name Role Phone Wes Parrish MD Primary Care Provider [phone] Rehana Ceron MD Unavailable [phone] Source Comments [facility],non-owned Affiliates and Associated Physician Practices is amultiple site organization consisting of ambulatory clinics and hospital sitesin [place], [place], [place] and [place]. This disclosure is being madepursuant to the [...] age to complete this topic Care Teams Geosciences Professor Relationship Specialty Start Date End Date Wes Parrish MD [address] [place] [address] PCP - General 08/20/20 Rehana Ceron MD [address] [place] [address] Family Medicine 08/20/20
--- OUTSIDE RECORDS SUMMARY | 2024-04-19 15:31 | XMS_ITS | Encounter Summary ---
Author Organization [facility] Address [address] [place] [address] Care Team Providers Care Tower Observer Name Role Phone Luis Parrish MD Primary Care Provider [phone] Encounter Details Date Type Department Care Team (Late st Contact Info) Description 07/12/2020 MyChart Message Enc [facility] Medical Group Multispecialty Care - [facility] [address] [facility], [address] [place] [phone] Flex Smith MD [address] [place], [place] [id number] RE: Question Social History Tobacco Use Types [...] Assessment Author Status No 01/12/2020 2:53 PM PROCESS SAFETY SPECIALIST Activ e * RETIRED Are you blind or do you have serious difficulty seeing, even when wearing glasses? Answer Date of Assessment Author Status No 01/12/2020 2:53 PM PROCESS SAFETY SPECIALIST Activ e * Do you have serious [...] on filedocumented in this encounter Care Teams Tower Observer Relationship Specialty Start Date End Date Luis Parrish MD [address] [place] [id number] PCP - General PEDIATRICS 01/06/20 documented as of this encounter
--- OUTSIDE RECORDS SUMMARY | 2024-04-19 15:31 | XMS_ITS | Clinical Summary ---
Author Organization [facility] Address [address] [place] [address] Care Team Providers Care Computational Linguist Name Role Phone Rehana Ceron MD Primary [...] of diagnosis: 06/04/2023 Diagnosis: LEFT DCIS ER(+) DC(+) Surgeon: Tyler Surgery: 07/06/2023 left lump; 07/12/2023 [...] STL ABSTRACTION Provider, Abstract 02/02/2024 Orders Only [facility] Oncology [facility] [address] [place] [address] Oskar Avalos MD 02/01/2024 2:45 PM SCREW CUTTER Office Visit [facility] [address] [place] [address] Oskar Avalos MD Breast neoplasm, Tis (DCIS), left (Primary Dx) 01/21/2024 11:30 AM SCREW CUTTER Office Visit [facility] Breast Surgery [place] [address] [place] [phone] Sabrina Scott MD Breast neoplasm, Tis (DCIS), left (Primary Dx) 01/21/2024 10:10 AM SCREW CUTTER - 01/21/2024 11:59 PM SCREW CUTTER Hospital Encounter [facility] [place] [address] [place] [phone] Sabrina Scott MD Discharge Disposition: Home or [...] on file Legal Sex Female 5:56 AM SCREW CUTTER Gender Identity Not on file Sexual Orientation Not on file Last Filed Vital Signs Vital Sign Reading Time Taken Comments Blood Pressure 167/92 02/01/2024 2:40 PM SCREW CUTTER Pulse 80 02/01/2024 2:40 PM SCREW CUTTER Temperature 36.5 C (97.7 F) 02/01/2024 2:40 PM SCREW CUTTER Respiratory Rate 16 02/01/2024 2:40 PM SCREW CUTTER Oxygen Saturation 95% 02/01/2024 2:40 PM SCREW CUTTER Inhaled Oxygen Concentration - - Weight 72.1 kg (159 lb) 02/01/2024 2:40 PM SCREW CUTTER Height 172.1 cm (5' 7.75 ) 01/21/2024 11:[address] Body Mass Index 24.35 01/21/2024 11:00 AM SCREW CUTTER Plan of Treatment Upcoming Encounters Date Type Department Care Team (Late st Contact Info) Description 06/03/2024 9:45 AM CDT Office Visit [facility] Oncology and Hematology - [place] [address] [place] [address] Oskar Avalos MD [address] [facility] [address] [place] [address] 01/26/2025 10:30 AM SCREW CUTTER Appointment [facility] [place] [address] [place] [address] [place] [address] [place] [address] 01/26/2025 11:30 AM SCREW CUTTER Office Visit [facility] Breast Surgery [place] [address] [place] [address] [place] [address] [place] [address] [...] history exists Medical Devices Implanted Type Area Splicer Helper Device Identifier Shelf Expiration Date Model / Serial / Lot Clip Ligating [facility] [place] [id number] - Csc - [id number] Implanted:Qty: 1 on 07/06/2023 by Sabrina Scott MD at [facility] [place] Clip Left: Breast TELEFLEX- WECK CLOSURE SYS 12/02/2026 [id number] / / [id number] Procedures Procedure Name Priority Date/Time Associated Diagnosis Comments BASIC METABOLIC PANEL Routine 02/01/2024 11:15 AM SCREW CUTTER CBC WITH DIFFERENTIAL Routine 02/01/2024 11:03 AM SCREW CUTTER MAMMO 3D MARTHA DIAGNOSTIC BILAT W OR WO CAD Routine 01/21/2024 10:39 AM SCREW CUTTER Ductal carcinoma in situ (DCIS) of left breast from Last 3 Months Results * BASIC METABOLIC PANEL (02/01/2024 11:15 AM SCREW CUTTER) Blood us Oskar Avalos MD CHEMISTRY ORDERABLES Final Resu lt * CBC WITH DIFFERENTIAL (02/01/2024 11:03 AM SCREW CUTTER) Blood us Oskar Avalos MD HEMATOLOGY ORDERABLES Final Res ult * MAMMO 3D MARTHA DIAGNOSTIC BILAT W OR WO CAD (01/21/2024 10:39 AM SCREW CUTTER) Anatomical Region Laterality Modality Breast Bilateral Mammography 01/21/2024 10:3 9 AM SCREW CUTTER Impressions 01/21/2024 12:25 PM SCREW CUTTER IMPRESSION: No mammographic evidence of malignancy. RECOMMENDATIONS: Bilateral diagnostic mammogram in one year. DICTATION LOCATION: [place] Narrative 01/21/2024 12:25 PM SCREW CUTTER EXAM: BILATERAL DIAGNOSTIC FULL-FIELD DIGITAL MAMMOGRAM WITH [...] diagnostic mammogram in one year. DICTATION LOCATION: [facility] Sabrina Scott MD MAMMO ORDERABLES Final Result from Last 3 Months Insurance [employer]ET[employer] PPO [facility] AETNA PPO MCR Care Teams Computational Linguist Relationship Specialty Start Date End Date Rehana Ceron MD [address] [place] [address] PCP - General Family Practice 07/22/23
--- OUTSIDE RECORDS SUMMARY | 2024-04-19 15:31 | XMS_ITS | Clinical Summary ---
Author Organization [facility] Address [address] [place] [address] Care Team Providers Care Auto Mechanic Supervisor Name Role Phone Luis Parrish MD Primary Care Provider + [phone] Allergies Active Allergy Reactions Criticality Noted Date Comments Erythromycin Unknown 01/06/2011 Large [employer] Medications multivitamin tablet Take 1 tablet by [...] 37.1 C (98.7 F) 01/19/2020 3:17 PM MANAGER CREDIT COLLECTIONS Respiratory Rate 18 11/02/2020 1:16 PM CDT [...] this topic Medical Devices Implanted Type Area Electrophysiology Technician Device Identifier Shelf Expiration Date Model / Serial / Lot Graft Infuse Bone Small - [id number] Implanted:Qty: 1 on 01/12/2020 by Flex Smith MD at [facility] N/A: Spine Lumbar [employer] 12/06/2021 [id number] / / [id number] Progenix Plus Spinalgraft Putty 2.5cc - [id number] Implanted:Qty: 1 on 01/12/2020 by Flex Smith MD at [facility] N/A: Spine Lumbar [employer] 07/04/2021 [id number] / / [id number] 2 Hole Plate Implanted:Qty: 1 on 01/12/2020 by Flex Smith MD at [facility] N/A: Spine Lumbar [employer] 10/26/2027 [id number] / / [id number] Screw Implanted:Qty: 2 on 01/12/2020 by Flex Smith MD at [facility] N/A: Spine Lumbar [employer] 11/09/2027 [id number] / / [id number] Interbody Implanted:Qty: 1 on 01/12/2020 by Flex Smith MD at [facility] N/A: Spine Lumbar [employer] 11/01/2026 [id number] / / [id number] 6.5 X 45 Screw Implanted:Qty: 2 on 01/12/2020 by Flex Smith MD at [facility] N/A: Spine Lumbar [employer] [id number] / / 4.75 X 40 [place] Implanted:Qty: 1 on 01/12/2020 by Flex Smith MD at [facility] N/A: Spine Lumbar [employer] [id number] / / Voyager Set Screws Implanted:Qty: 2 on 01/12/2020 by Flex Smith MD at [facility] N/A: Spine Lumbar [employer] [id number] / / Procedures Procedure Name Priority Date/Time Associated Diagnosis Comments MG SCREENING W MARTHA MICHAEL DIGI Routine 02/19/2022 9:30 AM MANAGER CREDIT COLLECTIONS Encounter for screening mammogram for malignant neoplasm of breast COLONOSCOPY/EGD GENERIC (SCAN ORDER) 10/28/2017 HEPATITIS PANEL,ACUTE Routine 06/28/2014 8:40 AM CDT from Last 3 Months or Most Recently Relevant to Health Maintenance Results * MG SCREENING W MARTHA MICHAEL DIGI (02/19/2022 9:30 AM MANAGER CREDIT COLLECTIONS) Anatomical Region Laterality Modality Breast Bilateral Computed Tomogra phy, Other 02/19/2022 10:1 5 AM MANAGER CREDIT COLLECTIONS Narrative 02/19/2022 10:28 AM MANAGER CREDIT COLLECTIONS IMAGING STUDIES: Bilateral screening mammograms with computer-aided [...] CONVERSION Comment: THIS TEST WAS PERFORMED AT [facility] [id number] [place] [address] 06/28/2014 8:40 AM CDT 06/28/2014 8:40 AM CDT Narrative [facility] TO EPIC CONVERSION - 06/29/2014 12:16 PM CDT This lab was migrated from [facility] and may be missing annotations or result text, please check the Media tab for the most complete results. us Luis Parrish MD LABORATORY Final Result [facility] TO EPIC CONVERSION from Last 3 Months or Most Recently Relevant to Health Maintenance Insurance MED REPLACE [facility] MEDICARE Advance Directives Documents on File Type Date Recorded Patient Process Mechanic Expl anation Advance Directives and Living Will 01/14/2020 8:11 AM 08-08-2009 signed Alyssa Pitts, Financial Recording Clerk for Health Care, MARIELLA Advance Directives and [...] 2:40 PM 01/13/2020 7:20 PM Care Teams Auto Mechanic Supervisor Relationship Specialty Start Date End Date Luis Parrish MD [address] [place] [address] PCP - General PEDIATRICS 01/06/20
--- OUTSIDE RECORDS SUMMARY | 2024-04-19 15:31 | XMS_ITS | Referral Summary ---
Author Organization [facility] Address [address] [place] [address] Care Team Providers Care Relief Docking Master Name Role Phone Wes Parrish MD Primary Care Provider [phone] Rehana Ceron MD Unavailable [phone] Source Comments [facility],non-owned Affiliates and Associated Physician Practices is amultiple site organization consisting of ambulatory clinics and hospital sitesin [place], [place], [place] and [place]. This disclosure is being madepursuant to the Care Everywhere program and may not contain all information available regarding this patient. Last updated 17.[facility] Allergies Active Allergy Reactions Criticality [...] of Treatment Not on file Care Teams Relief Docking Master Relationship Specialty Start Date End Date Wes Parrish MD [address] [place] [address] PCP - General 08/20/20 Rehana Ceron MD [address] [place] [address] Family Medicine 08/20/20
--- OUTSIDE RECORDS SUMMARY | 2024-04-19 15:31 | XMS_ITS | Patient Health Summary ---
Author Organization [facility] Address [address] [facility] [place] [address] Care Team Providers Care Account Services Manager Name Role Phone Wes Parrish MD Primary Care Provider [phone] Rehaan Ceron MD Unavailable [phone] Note from [facility],non-owned Affiliates and Associated Physician Practices is amultiple site organization consisting of ambulatory clinics and hospital sitesin [place], [place], [place] and [place]. This disclosure is being madepursuant to the Care Everywhere program and may not contain all information available regarding this patient. Last updated 17.[facility] Allergies * Erythromycin(Unknown) Medications * Be aware [...] Unknown 12/15/2018 9:54 AM CDT Jamee Kimball APRN-CRM ANALYST LAB - [place] RE ORDERABLES Care Teams Account Services Manager Relationship Specialty Start Date End Date Wes Parrish MD [address] [place], [place] [id number] PCP - General 08/20/20 Rehana Ceron MD [address] [place] [address] Family Medicine 08/20/20
--- OUTSIDE RECORDS SUMMARY | 2024-04-19 15:31 | XMS_ITS | Encounter Summary ---
Author Organization [facility] Address [address] [place] [address] Care Team Providers Care Wound Care Rn Name Role Phone Luis Parrish MD Primary Care Provider + [phone] Encounter Details Date Type Department Care Team (Latest Contact Info) Description 01/20/2020 Talkwheel Message Enc [facility] Medical Group Multispecialty Care - [facility] [address] [facility], [address] [place] [address] Merlene Lara APRN [address] [facility] [address] [place] [address] RE: Medication Questions Social History Tobacco Use [...] COVID-19? No / Unsure 01/19/2020 3:04 PM SPRAY PAINTER HELPER documented as of this encounter Functional Status * RETIRED Are you deaf or do you have serious difficulty hearing Answer Date of Assessment Author Status No 01/12/2020 2:53 PM SPRAY PAINTER HELPER Activ e * RETIRED Are you blind or do you have serious difficulty seeing, even when wearing glasses? Answer Date of Assessment Author Status No 01/12/2020 2:53 PM SPRAY PAINTER HELPER Activ e * Do you have serious [...] to contact insurance etc. Pt stated understanding. Y PAINTER HELPER documented in this encounter Plan of Treatment Not on file documented as of this encounter Visit Diagnoses Not on filedocumented in this encounter Care Teams Wound Care Rn Relationship Specialty Start Date End Date Luis Parrish MD [address] [place] [address] PCP - General PEDIATRICS 01/06/20 documented as of this encounter
[2024-04-19 15:33] LABS: Alanine Aminotransferase 15 U/L (6-35); Albumin Level 3.8 g/dL (3.5-5.1); Alkaline Phosphatase 114 U/L (38-126); Anion Gap 15 mmol/L (4-12); Aspartate Amino Transferase 17 U/L (14-36); Bilirubin,Total 0.9 mg/dL (0.2-1.3); Blood Urea Nitrogen 25 mg/dL (7-17); Calcium 9.4 mg/dL (8.4-10.2); Carbon Dioxide 24 mmol/L (22-30); Chloride 98 mmol/L (98-107); Estimated CRCL calculation 57 ml/min; Estimated Glomerular Filt Rate > 60; Glucose 122 mg/dL (65-110); Potassium 3.4 mmol/L (3.4-5.0); Sodium 137 mmol/L (137-145)
--- OUTSIDE RECORDS SUMMARY | 2024-04-19 15:52 | XMS_ITS | Clinical Summary ---
Author Organization [facility] Address [address] [place] [address] Care Team Providers Care Medical Anthropology Director Name Role Phone Luis Parrish MD Primary Care Provider + [phone] Allergies Active Allergy Reactions Criticality Noted Date Comments Erythromycin Unknown 01/06/2011 Large [employer] Medications multivitamin tablet Take 1 tablet by [...] 37.1 C (98.7 F) 01/19/2020 3:17 PM CRYSTALIZER TENDER Respiratory Rate 18 11/02/2020 1:16 PM CDT [...] this topic Medical Devices Implanted Type Area Gis Administrator Device Identifier Shelf Expiration Date Model / Serial / Lot Graft Infuse Bone Small - [id number] Implanted:Qty: 1 on 01/12/2020 by Flex Smith MD at [facility] N/A: Spine Lumbar [employer] 12/06/2021 [id number] / / [id number] Progenix Plus Spinalgraft Putty 2.5cc - [id number] Implanted:Qty: 1 on 01/12/2020 by Flex Smith MD at [facility] N/A: Spine Lumbar [employer] 07/04/2021 [id number] / / [id number] 2 Hole Plate Implanted:Qty: 1 on 01/12/2020 by Flex Smith MD at [facility] N/A: Spine Lumbar [employer] 10/26/2027 [id number] / / [id number] Screw Implanted:Qty: 2 on 01/12/2020 by Flex Smith MD at [facility] N/A: Spine Lumbar [employer] 11/09/2027 [id number] / / [id number] Interbody Implanted:Qty: 1 on 01/12/2020 by Flex Smith MD at [facility] N/A: Spine Lumbar [employer] 11/01/2026 [id number] / / [id number] 6.5 X 45 Screw Implanted:Qty: 2 on 01/12/2020 by Flex Smith MD at [facility] N/A: Spine Lumbar [employer] [id number] / / 4.75 X 40 [place] Implanted:Qty: 1 on 01/12/2020 by Flex Smith MD at [facility] N/A: Spine Lumbar [employer] [id number] / / Voyager Set Screws Implanted:Qty: 2 on 01/12/2020 by Flex Smith MD at [facility] N/A: Spine Lumbar [employer] [id number] / / Procedures Procedure Name Priority Date/Time Associated Diagnosis Comments MG SCREENING W MARTHA MICHAEL DIGI Routine 02/19/2022 9:30 AM CRYSTALIZER TENDER Encounter for screening mammogram for malignant neoplasm of breast COLONOSCOPY/EGD GENERIC (SCAN ORDER) 10/28/2017 HEPATITIS PANEL,ACUTE Routine 06/28/2014 8:40 AM CDT from Last 3 Months or Most Recently Relevant to Health Maintenance Results * MG SCREENING W MARTHA MICHAEL DIGI (02/19/2022 9:30 AM CRYSTALIZER TENDER) Anatomical Region Laterality Modality Breast Bilateral Computed Tomogra phy, Other 02/19/2022 10:1 5 AM CRYSTALIZER TENDER Narrative 02/19/2022 10:28 AM CRYSTALIZER TENDER IMAGING STUDIES: Bilateral screening mammograms with computer-aided [...] CONVERSION Comment: THIS TEST WAS PERFORMED AT [facility] [id number] [place] [address] 06/28/2014 8:40 AM CDT 06/28/2014 8:40 AM CDT Narrative [facility] TO EPIC CONVERSION - 06/29/2014 12:16 PM CDT This lab was migrated from [facility] and may be missing annotations or result text, please check the Media tab for the most complete results. us Luis Parrish MD LABORATORY Final Result [facility] TO EPIC CONVERSION from Last 3 Months or Most Recently Relevant to Health Maintenance Insurance MED REPLACE [facility] MEDICARE Advance Directives Documents on File Type Date Recorded Patient Buyer Tobacco Head Expl anation Advance Directives and Living Will 01/14/2020 8:11 AM 08-08-2009 signed Alyssa Pitts, Water Vessel Captain for Health Care, MARIELLA Advance Directives and [...] 2:40 PM 01/13/2020 7:20 PM Care Teams Medical Anthropology Director Relationship Specialty Start Date End Date Luis Parrish MD [address] [place] [address] PCP - General PEDIATRICS 01/06/20
--- OUTSIDE RECORDS SUMMARY | 2024-04-19 15:52 | XMS_ITS | Clinical Summary ---
Author Organization [facility] Address [address] [facility] [place] [address] Care Team Providers Care Teller Supervisor Name Role Phone Wes Parrish MD Primary Care Provider [phone] Rehana Ceron MD Unavailable [phone] Source Comments [facility],non-owned Affiliates and Associated Physician Practices is amultiple site organization consisting of ambulatory clinics and hospital sitesin [place], [place], [place] and [place]. This disclosure is being madepursuant to the [...] age to complete this topic Care Teams Teller Supervisor Relationship Specialty Start Date End Date Wes Parrish MD [address] [place] [address] PCP - General 08/20/20 Rehana Ceron MD [address] [place] [address] Family Medicine 08/20/20
--- OUTSIDE RECORDS SUMMARY | 2024-04-19 15:52 | XMS_ITS | Encounter Summary ---
Author Organization [facility] Address [address] [place] [address] Care Team Providers Care Co Founder And Ceo Name Role Phone Luis Parrish MD Primary Care Provider + [phone] Encounter Details Date Type Department Care Team (Late st Contact Info) Description 02/21/2020 [employer]range [employer] Message Enc [facility] Medical Group Multispecialty Care - [facility] [address] [facility], [address] [place] [address] Merlene Lara, ROCKY [address] [facility] [address] [place] [address] RE: Question Social History Tobacco Use Types [...] COVID-19? No / Unsure 02/16/2020 11:36 AM FINDING FASTENER documented as of this encounter Functional Status * RETIRED Are you deaf or do you have serious difficulty hearing Answer Date of Assessment Author Status No 01/12/2020 2:53 PM FINDING FASTENER Activ e * RETIRED Are you blind or do you have serious difficulty seeing, even when wearing glasses? Answer Date of Assessment Author Status No 01/12/2020 2:53 PM FINDING FASTENER Acti ve * Do you have serious [...] on filedocumented in this encounter Care Teams Co Founder And Ceo Relationship Specialty Start Date End Date Luis Parrish MD [address] [place] [address] PCP - General PEDIATRICS 01/06/20 documented as of this encounter
--- OUTSIDE RECORDS SUMMARY | 2024-04-19 15:52 | XMS_ITS | Encounter Summary ---
Author Organization [facility] Address [address] [place] [address] Care Team Providers Care Heating Unit Mechanic Name Role Phone Luis Parrish MD Primary Care Provider [phone] Encounter Details Date Type Department Care Team (Late st Contact Info) Description 07/12/2020 MyChart Message Enc [facility] Medical Group Multispecialty Care - [facility] [address] [facility], [address] [place] [phone] Flex Smith MD [address] [place], [place] [phone] RE: Question Social History Tobacco Use Types [...] Assessment Author Status No 01/12/2020 2:53 PM CARDIOVASCULAR TECH Activ e * RETIRED Are you blind or do you have serious difficulty seeing, even when wearing glasses? Answer Date of Assessment Author Status No 01/12/2020 2:53 PM CARDIOVASCULAR TECH Activ e * Do you have serious [...] on filedocumented in this encounter Care Teams Heating Unit Mechanic Relationship Specialty Start Date End Date Luis Parrish MD [address] [place] [address] PCP - General PEDIATRICS 01/06/20 documented as of this encounter
--- OUTSIDE RECORDS SUMMARY | 2024-04-19 15:52 | XMS_ITS | Encounter Summary ---
Author Organization [facility] Address [address] [place] [address] Care Team Providers Care Vp Ad Products And Planning Name Role Phone Luis Parrish MD Primary Care Provider + [phone] Encounter Details Date Type Department Care Team (Latest Contact Info) Description 01/20/2020 [email or web address] Message Enc [facility] Medical Group Multispecialty Care - [facility] [address] [facility], [address] [place] [address] Merlene Lara APRN [address] [facility] [address] [place] [address] RE: Medication Questions Social History Tobacco Use [...] COVID-19? No / Unsure 01/19/2020 3:04 PM NAPPER FIXER documented as of this encounter Functional Status * RETIRED Are you deaf or do you have serious difficulty hearing Answer Date of Assessment Author Status No 01/12/2020 2:53 PM NAPPER FIXER Activ e * RETIRED Are you blind or do you have serious difficulty seeing, even when wearing glasses? Answer Date of Assessment Author Status No 01/12/2020 2:53 PM NAPPER FIXER Activ e * Do you have serious [...] to contact insurance etc. Pt stated understanding. ER FIXER documented in this encounter Plan of Treatment Not on file documented as of this encounter Visit Diagnoses Not on filedocumented in this encounter Care Teams Vp Ad Products And Planning Relationship Specialty Start Date End Date Luis Parrish MD [address] [place] [address] PCP - General PEDIATRICS 01/06/20 documented as of this encounter
--- OUTSIDE RECORDS SUMMARY | 2024-04-19 15:52 | XMS_ITS | Patient Health Summary ---
Author Organization [facility] Address [address] [facility] [place] [address] Care Team Providers Care Director Search Name Role Phone Wes Parrish MD Primary Care Provider Rehana Ceron MD Unavailable [phone] Note from [facility],non-owned Affiliates and Associated Physician Practices is amultiple site organization consisting of ambulatory clinics and hospital sitesin [place], [place], [place] and [place]. This disclosure is being madepursuant to the Care Everywhere program and may not contain all information available regarding this patient. Last updated 17.[facility] Allergies * Erythromycin(Unknown) Medications * Be aware [...] Unknown 12/15/2018 9:54 AM CDT Jamee Kimball APRN-CRYSTAL ATTACHER LAB - [place] RE ORDERABLES Care Teams Director Search Relationship Specialty Start Date End Date Wes Parrish MD [employer] [place] [phone] PCP - General 08/20/20 Rehana Ceron MD [address] [place] [address] Family Medicine 08/20/20
--- OUTSIDE RECORDS SUMMARY | 2024-04-19 15:52 | XMS_ITS | Encounter Summary ---
Author Organization [facility] Address [address] [place] [address] Care Team Providers Care Wallet Assembler Name Role Phone Luis Parrish MD Primary Care Provider + [phone] Encounter Details Date Type Department Care Team (Late st Contact Info) Description 08/20/2020 [employer] Message Enc [facility] Medical Group Multispecialty Care - [facility] [address] [facility], [address] [place] [phone] Flex Smith MD [address] [place], [place] [id number] RE: Question Social History Tobacco Use Types [...] Assessment Author Status No 01/12/2020 2:53 PM WIG STYLIST Activ e * RETIRED Are you blind or do you have serious difficulty seeing, even when wearing glasses? Answer Date of Assessment Author Status No 01/12/2020 2:53 PM WIG STYLIST Activ e * Do you have serious [...] on filedocumented in this encounter Care Teams Wallet Assembler Relationship Specialty Start Date End Date Luis Parrish MD [address] [place] [address] PCP - General PEDIATRICS 01/06/20 documented as of this encounter
--- OUTSIDE RECORDS SUMMARY | 2024-04-19 15:52 | XMS_ITS | Clinical Summary ---
Author Organization [facility] Address [address] [place] [address] Care Team Providers Care Vamp Marker Name Role Phone Rehana Ceron MD Primary [...] of diagnosis: 06/04/2023 Diagnosis: LEFT DCIS ER(+) [place](+) Surgeon: Tyler Surgery: 07/06/2023 left lump; 07/12/2023 [...] STL ABSTRACTION Provider, Abstract 02/02/2024 Orders Only [facility] Oncology [facility] [address] [place] [address] Oskar Avalos MD 02/01/2024 2:45 PM LAND TITLE EXAMINER Office Visit [facility] [address] [place] [address] Oskar Avalos MD Breast neoplasm, Tis (DCIS), left (Primary Dx) 01/21/2024 11:30 AM LAND TITLE EXAMINER Office Visit [facility] Breast Surgery [place] [address] [place] [phone] Sabrina Scott MD Breast neoplasm, Tis (DCIS), left (Primary Dx) 01/21/2024 10:10 AM LAND TITLE EXAMINER - 01/21/2024 11:59 PM LAND TITLE EXAMINER Hospital Encounter [facility] [place] [place] [phone] Sabrina Scott MD Discharge Disposition: Home or [...] on file Legal Sex Female 5:56 AM LAND TITLE EXAMINER Gender Identity Not on file Sexual Orientation Not on file Last Filed Vital Signs Vital Sign Reading Time Taken Comments Blood Pressure 167/92 02/01/2024 2:40 PM LAND TITLE EXAMINER Pulse 80 02/01/2024 2:40 PM LAND TITLE EXAMINER Temperature 36.5 C (97.7 F) 02/01/2024 2:40 PM LAND TITLE EXAMINER Respiratory Rate 16 02/01/2024 2:40 PM LAND TITLE EXAMINER Oxygen Saturation 95% 02/01/2024 2:40 PM LAND TITLE EXAMINER Inhaled Oxygen Concentration - - Weight 72.1 kg (159 lb) 02/01/2024 2:40 PM LAND TITLE EXAMINER Height 172.1 cm (5' 7.75 ) 01/21/2024 11:[address] Body Mass Index 24.35 01/21/2024 11:00 AM LAND TITLE EXAMINER Plan of Treatment Upcoming Encounters Date Type Department Care Team (Late st Contact Info) Description 06/03/2024 9:45 AM CDT Office Visit [facility] Oncology and Hematology - [place] [address] [place] [phone] Oskar Avalos MD [address] [facility] [employer] [address] [place] [phone] 01/26/2025 10:30 AM LAND TITLE EXAMINER Appointment [facility] [place] [address] [place] [address] [place] [address] [place] [address] 01/26/2025 11:30 AM LAND TITLE EXAMINER Office Visit [facility] Breast Surgery [place] [address] [place] [phone] [place] [address] [place] [address] [...] history exists Medical Devices Implanted Type Area Power Distribution Engineer Device Identifier Shelf Expiration Date Model / Serial / Lot Clip Ligating [facility] [id number] - Csc - [id number] Implanted:Qty: 1 on 07/06/2023 by Sabrina Scott MD at [facility] [place] Clip Left: Breast TELEFLEX- WECK CLOSURE SYS 12/02/2026 [id number] / / [id number] Procedures Procedure Name Priority Date/Time Associated Diagnosis Comments BASIC METABOLIC PANEL Routine 02/01/2024 11:15 AM LAND TITLE EXAMINER CBC WITH DIFFERENTIAL Routine 02/01/2024 11:03 AM LAND TITLE EXAMINER MAMMO 3D MARTHA DIAGNOSTIC BILAT W OR WO CAD Routine 01/21/2024 10:39 AM LAND TITLE EXAMINER Ductal carcinoma in situ (DCIS) of left breast from Last 3 Months Results * BASIC METABOLIC PANEL (02/01/2024 11:15 AM LAND TITLE EXAMINER) Blood us Oskar Avalos MD CHEMISTRY ORDERABLES Final Resu lt * CBC WITH DIFFERENTIAL (02/01/2024 11:03 AM LAND TITLE EXAMINER) Blood us Oskar Avalos MD HEMATOLOGY ORDERABLES Final Res ult * MAMMO 3D MARTHA DIAGNOSTIC BILAT W OR WO CAD (01/21/2024 10:39 AM LAND TITLE EXAMINER) Anatomical Region Laterality Modality Breast Bilateral Mammography 01/21/2024 10:3 9 AM LAND TITLE EXAMINER Impressions 01/21/2024 12:25 PM LAND TITLE EXAMINER IMPRESSION: No mammographic evidence of malignancy. RECOMMENDATIONS: Bilateral diagnostic mammogram in one year. DICTATION LOCATION: [place] Narrative 01/21/2024 12:25 PM LAND TITLE EXAMINER EXAM: BILATERAL DIAGNOSTIC FULL-FIELD DIGITAL MAMMOGRAM WITH [...] mammogram in one year. DICTATION LOCATION: [facility] Sabrina Scott MD MAMMO ORDERABLES Final Result from Last 3 Months Insurance [employer]ET[employer] PPO [facility] AET[employer] PPO MCR Care Teams Vamp Marker Relationship Specialty Start Date End Date Rehana Ceron MD [address] [place] [address] PCP - General Family Practice 07/22/23
--- OUTSIDE RECORDS SUMMARY | 2024-04-19 15:52 | XMS_ITS | Referral Summary ---
Author Organization [facility] Address [address] [place] [address] Care Team Providers Care Physical Education Instructor Name Role Phone Wes Parrish MD Primary Care Provider Rehana Ceron MD Unavailable Source Comments [facility],non-owned Affiliates and Associated Physician Practices is amultiple site organization consisting of ambulatory clinics and hospital sitesin [place], [place], [place] and [place]. This disclosure is being madepursuant to the Care Everywhere program and may not contain all information available regarding this patient. Last updated 17.[facility] Allergies Active Allergy Reactions Criticality Noted Date [...] of Treatment Not on file Care Teams Physical Education Instructor Relationship Specialty Start Date End Date Wes Parrish MD [address] [place] [address] PCP - General 08/20/20 Rehana Ceron MD [address] [place] [address] Family Medicine 08/20/20
[2024-04-19] MEDS: ONDANSETRON INJ 4 MG/2 ML VIAL IV PUSH (15:53)
[2024-04-19] MEDS: cefTRIAXone 2 GM/NS 100 ML 2 GM/100 ML BAG IVPB (15:54)
[2024-04-19] MEDS: LORazepam INJ (*CRX) 2 MG/ML VIAL 0.5 MG IV PUSH (16:35)
[2024-04-19] MEDS: metroNIDAZOLE 500 MG/ISO 100ML 500 MG/100 ML BAG 100 MG IVPB (17:06)
--- NOTE | 2024-04-19 21:05 | ADMGEN ---
This patient, Kathryn Espitia, was admitted to 3 [facility] Surg Room 305-01. Patient/family oriented to hospital policies and general routines including ID bracelet, bed and alarms, visiting hours, pain management, procedures, bathroom and other care routines, personal items, smoking policy, room service/diet, and visiting hours. Information on how to activate the Rapid Response Team has been discussed. Patient/Family are encouraged to report perceived risks to care and to ask questions if they do not understand what they are told or what they should do.
--- NOTE | 2024-04-19 21:17 | PM.IMHP ---
H&P: HPI History of Present Illness Date/Time: 04/19/24 21:17 Chief Complaint: Loss of appetite nausea vomiting diarrhea Narrative: This is a pleasant 73-year-old female with a past medical history left breast cancer status post lumpectomy on 07/06/2023 status post breast radiation home, hypertension, hypercholesterolemia, nephrolithiasis, collagenous colitis who presents to [place] [facility] with complaint of abdominal pain nausea vomiting and watery brown diarrhea for 3 days. She had an outpatient CT of abdomen pelvis performed showed perforated diverticulitis with abscess. This CT abdomen pelvis on 04/19/2024 at 1:36 p.m. demonstrated perforated sigmoid diverticulitis with gas and fluid-filled collections the deep pelvis suspicious for developing abscess and reactive ileitis. ER course found her to have sinus tachycardia otherwise hemodynamically stable. White blood cell count of 14.4. Afebrile. Intervention Radiology and General surgery contacted from the ER. Higher feels they can drain the suspected abscess. Patient was given Ativan x1, metronidazole and ceftriaxone, Zofran. Review of Systems Review of Systems: All systems reviewed & are unremarkable except as noted in HPI and below (HPI) [facility] Past Medical History Medical History Anxiety Arthritis Social History Social History Smoking status: Never smoker Second hand tobacco smoke exposure: No Alcohol intake: current Drinks per week: 3 Substance use: never Substance use type: does not use Living arrangements: with family Additional living arrangements comments: [facility] Gender identity (if verbalized by the patient): Female Sexual Orientation (if Verbalized by the Patient): Straight or Heterosexual Spiritual care concerns: No Meds Home Medications and Allergies Home Medications ?Medication ?Instructions ?Recorded ?Confirmed ?Type aspirin 81 mg tablet,delayed 81 mg PO HS 08/15/20 10/27/23 History release sulfasalazine 500 mg tablet 500 mg PO QAM 08/15/20 10/27/23 History trazodone 50 mg tablet 25 mg PO HS PRN Sleep 08/15/20 10/27/23 History alendronate 70 mg tablet 70 mg PO WEEKLY 03/05/21 10/27/23 History calcium carb-ergocalciferol (vit 1 tablet PO QAM 03/05/21 10/27/23 History D2) 600 mg calcium-200 unit tablet elderberry fruit 200 mg capsule 200 mg PO QAM 03/05/21 10/27/23 History levocetirizine 5 mg tablet 5 mg PO QAM 03/05/21 10/27/23 History multivitamin 1 tablet PO DAILY 03/05/21 10/27/23 History buspirone 5 mg tablet 5 mg BID-TID PRN Anxiety 11/06/21 10/27/23 History cranberry 1 cap QAM 11/06/21 10/27/23 History tamoxifen 20 mg tablet 20 mg PO DAILY 10/27/23 10/27/23 History Allergies Allergy/AdvReac Type Severity Reaction Status Date / Time erythromycin base (From Allergy Intermediate Rash Verified 04/19/24 15:05 Ilosone) Vital Signs Vital Signs - 24 hr 04/19/24 16:06 04/19/24 16:31 04/19/24 16:46 Pulse Rate 99 96 91 Respiratory Rate 19 17 20 Blood Pressure 139/84 145/64 H Pulse Oximetry 99 100 99 04/19/24 17:31 04/19/24 18:01 04/19/24 18:15 Pulse Rate 96 101 H 101 H Respiratory Rate 27 H 28 H 19 Blood Pressure 143/85 H 152/76 H Pulse Oximetry 98 99 100 04/19/24 18:31 04/19/24 19:00 04/19/24 19:01 Pulse Rate 103 H 105 H 108 H Respiratory Rate 19 23 H 21 H Blood Pressure 153/73 H 137/54 L Pulse Oximetry 97 100 97 04/19/24 19:32 04/19/24 20:00 04/19/24 20:15 Pulse Rate 109 H 103 H 98 Respiratory Rate 21 H 20 19 Blood Pressure 100/87 131/62 Pulse Oximetry 98 97 97 Exam Const: General: comfortable and no acute distress HENMT: Mouth: Yes moist mucous membranes Eyes: Pupils: Equal, round and reactive pupils present Neck: Neck: supple Resp: Effort & Inspection: normal respiratory effort Auscultation: clear to auscultation bilaterally Cardio: Rate: regular rate Rhythm: regular rhythm Heart sounds: no gallops, no murmurs and no rubs GI: Inspection: non-distended GI Palp: Yes Soft to palpation and No Tenderness to palpation present (GI) Auscultation: normal bowel sounds : General: Yes bladder normal to palpation Extrem: General: no edema H&P: Results Labs Labs: Short CBC 04/19/24 Range/Units 15:15 WBC 14.4 H (4.5-10.0) K/mm3 Hgb 14.0 (12.0-15.0) g/dL Hct 41.8 (37.0-47.0) % Plt Count 339 (150-375) k/mm3 BMP 04/19/24 15:15 Sodium 137 Potassium 3.4 Chloride 98 Carbon Dioxide 24 BUN 25 H Creatinine 0.77 Glucose 122 H Calcium 9.4 Liver Function 04/19/24 Range/Units 15:15 Total Bilirubin 0.9 (0.2-1.3) mg/dL AST 17 (14-36) U/L ALT 15 (6-35) U/L Alkaline Phosphatase 114 (38-126) U/L Albumin 3.8 (3.5-5.1) g/dL Assessment and Plan Assessment and plan (1) Diverticulitis of intestine with perforation and abscess: Code(s): K57.80 - Diverticulitis of intestine, part unspecified, with perforation and abscess without bleeding Status: Acute Plan This is a pleasant 73-year-old female with a past medical history left breast cancer status post lumpectomy on 07/06/2023 status post breast radiation home, hypertension, hypercholesterolemia, nephrolithiasis, collagenous colitis who presents to [place] ER with complaint of abdominal pain nausea vomiting and watery brown diarrhea for 3 days. She had an outpatient CT of abdomen pelvis performed showed perforated diverticulitis with abscess. This CT abdomen pelvis on 04/19/2024 at 1:36 p.m. demonstrated perforated sigmoid diverticulitis with gas and fluid-filled collections the deep pelvis suspicious for developing abscess and reactive ileitis. ER course found her to have sinus tachycardia otherwise hemodynamically stable. White blood cell count of 14.4. Afebrile. Intervention Radiology and General surgery contacted from the ER. Higher feels they can drain the suspected abscess. Patient was given Ativan x1, metronidazole and ceftriaxone, Zofran. ----- After arriving to the medical floor the patient denied any complaints aside from some mild right lower quadrant abdominal pain. When examined could not elicit any pain. The patient appears comfortable. Morphine and Tylenol p.r.n.. Continue ceftriaxone and metronidazole. NPO. Maintenance fluids. General surgery and IR consultation. Continue to trend white count. SCDs for DVT prophylaxis Patient wishes to be full code Hospitalist MIPS Advance Care Plan I have confirmed that the patient's Advanced Care Plan is present, code status is documented, or surrogate decision maker is listed in patient medical record.: Yes Medication Reconciliation I have utilized all available resources to obtain, update and review the patients current medications (includes all prescriptions, OTC, herbals, cannabis, and nutritional supplements).: Yes
[2024-04-19] MEDS: MORPHINE SULFATE (*CRX) 2 MG/ML INJ IV PUSH (22:09)
[2024-04-19] MEDS: SODIUM CHLORIDE 0.9% IV 1,000 ML 75 ML IV CONT (22:10)
[2024-04-20] MEDS: metroNIDAZOLE 500 MG/ISO 100ML 500 MG/100 ML BAG 100 MG IVPB ×2 (00:30→08:40)
[2024-04-20 05:15] VITALS: BP 127/62; PULSE 91; RESP 22; TEMP 37.3; O2SAT 92
[2024-04-20] MEDS: MORPHINE SULFATE (*CRX) 2 MG/ML INJ IV PUSH ×4 (06:35→22:46)
[2024-04-20 07:38] LABS: Basophils Percent Auto 0.2 % (0.2-1.2); Eosinophils Percent Auto 0.4 % (0-4.4); Hematocrit 34.4 % (37.0-47.0); Hemoglobin 11.5 g/dL (12.0-15.0); Immature Granulocyte Absolute 0.05 K/mm3 (0.00-0.031); Immature Granulocyte Percent A 0.5 % (0-0.5); Lymphocytes Absolute Auto 0.65 K/mm3 (0.9-3.2); Lymphocytes Percent Auto 6.4 % (18.3-44.2); Mean Corpuscular HGB Conc 33.4 g/dl (32-36); Mean Corpuscular Hemoglobin 31.2 pg (26-34); Mean Corpuscular Volume 93.2 fl (80-100); Mean Platelet Volume 9.9 fl (7.4-10.4); Neutrophils Absolute Auto 8.4 K/mm3 (1.3-6.7); Neutrophils Percent Auto 82.5 % (45.5-73.1); Platelet Count Result 290 k/mm3 (150-375); Red Blood Count 3.69 M/mm3 (4.2-5.4); Red Cell Distribution Width 12.9 % (11.5-14.5); White Blood Count 10.2 K/mm3 (4.5-10.0)
[2024-04-20 07:44] LABS: Anion Gap 9 mmol/L (4-12); Blood Urea Nitrogen 20 mg/dL (7-17); Calcium 8.2 mg/dL (8.4-10.2); Carbon Dioxide 23 mmol/L (22-30); Chloride 106 mmol/L (98-107); Estimated CRCL calculation 75 ml/min; Estimated Glomerular Filt Rate > 60; Glucose 101 mg/dL (65-110); Magnesium 2.2 mg/dL (1.6-2.3); Potassium 3.3 mmol/L (3.4-5.0); Sodium 138 mmol/L (137-145)
[2024-04-20 08:00] LABS: INR 1.1; Prothrombin Time 14.8 Seconds (11.1-14.7)
[2024-04-20] MEDS: TAMOXIFEN CITRATE (*CHEMO) 10 MG TABLET 20 MG PO (08:40)
[2024-04-20] MEDS: busPIRone HCL 5 MG TABLET PO (08:42)
--- NOTE | 2024-04-20 10:30 | P.CONGS_ITS ---
Assessment and Plan Assessment and plan (1) Diverticulitis of intestine with perforation and abscess: Code(s): K57.80 - Diverticulitis of intestine, part unspecified, with perforation and abscess without bleeding Status: Acute Assessment and Plan: Patient presents with 5 days of RLQ abdominal pain, vomiting, and diarrhea. Outpatient CT scan showed sigmoid diverticulitis with perforation and a few small not yet well organized-appearing gas and fluid collections in the pelvis suspicious for developing abscesses. Her abdominal pain and WBC count are already improving. She has mild RLQ tenderness. No peritoneal signs on exam. The Hospitalist has already ordered percutaneous abscess drainage in IR. No indication for emergent surgical intervention. We would recommend to continue IV antibiotics, bowel rest, and IV fluids. Will continue to follow along with serial abdominal exams and labs. (2) Intraductal carcinoma in situ of left breast: Code(s): D05.12 - Intraductal carcinoma in situ of left breast Status: Chronic Assessment and Plan: S/p lumpectomy in June 2023 with radiation therapy. Still on tamoxifen. (3) Collagenous colitis: Code(s): K52.831 - Collagenous colitis Status: Chronic Assessment and Plan: History of collagenous colitis on sulfasalazine PRN, which she has not taken in about a year up until her episode of diarrhea Thursday. Will stop the sulfasalazine given her acute diverticulitis. Plan I have discussed the patient's case and plan of care with Dr. Brown. History of Present Illness Consult details Consult date: 04/20/24 Reason for consult: other (Perforated diverticulitis) Requesting physician: Bekah Vivas MD Narrative: This is a 73-year-old woman with PMH of left breast cancer s/p lumpectomy in June 2023 and radiation therapy, hypertension, hyperlipidemia, and collagenous colitis, who we have been asked to see in surgical consultation for perforated diverticulitis. She reports having right lower quadrant abdominal pain starting 5 days ago. The pain was dull and constant, but initially mild. She developed diarrhea a few days later and thought it may be related to either her collagenous colitis or some viral illness. She attempt to taking sulfasalazine x2, which she takes only p.r.n. for symptoms. She reports she has not needed this for the past year. She reports generalized malaise and poor appetite. She developed nausea and vomiting as well and could not keep anything down the past few days. Her abdominal pain became progressively more intense and she called her PCP, who evaluated her yesterday. She ordered an outpatient CT scan of the abdomen and pelvis with IV contrast that showed perforated sigmoid diverticulitis with a few small not yet well organized appearing gas and fluid collections in the deep pelvis suspicious for developing abscesses, and likely reactive ileitis with wall thickening along a short segment of adjacent small bowel and likely secondary ileus. She was then directed to the ED. Labs showed a white blood cell count 10396. She has been started on IV ceftriaxone and metronidazole. She reports having some mild right lower quadrant pain at this time. Reports this has improved since admission. Her white blood cell count has come down to 10,000. She denies any nausea at this time. She reports flatus, but no bowel movements after having diarrhea Thursday. Denies any blood in her stool. She reports 1 episode of mild diverticulitis many years ago that was treated outpatient with oral antibiotics. Her last colonoscopy was 2017 with only reported findings of the collagenous colitis. Review of Systems 2 Review of Systems: All systems reviewed & are unremarkable except as noted in HPI and below PMFSH Past Medical History Medical History (Updated 04/20/24 @ 10:45 by EDILBERTO Santo) Collagenous colitis Intraductal carcinoma in situ of left breast Arthritis Anxiety Surgical History Surgical History History of spinal surgery History of lung biopsy Reportedly benign History of lumpectomy Left breast Social History Social History Smoking status: Never smoker Second hand tobacco smoke exposure: No Alcohol intake: never Drinks per week: 3 Substance use: never Substance use type: does not use Do You Feel Safe in your Home?: Yes Lack of Transportation: No Lack of Food: Never True Current Housing: I Have Housing Concerned About Future Housing: No Difficulty Paying Gas/Electric Bills: No Difficulty Paying for Meds: No Currently Unemployed: No Education: Bachelor's Degree Difficulty w/ Childcare or Family Care: No Living arrangements: with family Additional living arrangements comments: [facility] Gender identity (if verbalized by the patient): Female Sexual Orientation (if Verbalized by the Patient): Straight or Heterosexual Spiritual care concerns: No Meds Home Medications and Allergies Home Medications ?Medication ?Instructions ?Recorded ?Confirmed ?Type aspirin 81 mg tablet,delayed 81 mg PO HS 08/15/20 04/19/24 History release sulfasalazine 500 mg tablet 500 mg PO QAM 08/15/20 04/19/24 History trazodone 50 mg tablet 25 mg PO HS PRN Sleep 08/15/20 04/19/24 History alendronate 70 mg tablet 70 mg PO WEEKLY 03/05/21 04/19/24 History calcium carb-ergocalciferol (vit 1 tablet PO QAM 03/05/21 04/19/24 History D2) 600 mg calcium-200 unit tablet elderberry fruit 200 mg capsule 200 mg PO QAM 03/05/21 04/19/24 History levocetirizine 5 mg tablet 5 mg PO QAM 03/05/21 04/19/24 History multivitamin 1 tablet PO DAILY 03/05/21 04/19/24 History buspirone 5 mg tablet 5 mg PO BID-TID PRN Anxiety 11/06/21 04/19/24 History cranberry 1 cap PO QAM 11/06/21 04/19/24 History tamoxifen 20 mg tablet 20 mg PO DAILY 10/27/23 04/19/24 History lactobacillus combination no.4 3 3,000 mmu cells PO DAILY 04/19/24 04/19/24 History billion cell capsule (Probiotic) Allergies Allergy/AdvReac Type Severity Reaction Status Date / Time erythromycin base (From Allergy Intermediate Rash Verified 04/19/24 15:05 Ilosone) Vital Signs Vital Signs - 24 hr 04/19/24 16:06 04/19/24 16:31 04/19/24 16:46 Temperature Pulse Rate 99 96 91 Respiratory Rate 19 17 20 Blood Pressure 139/84 145/64 H Pulse Oximetry 99 100 99 Oxygen Delivery 04/19/24 17:31 04/19/24 18:01 04/19/24 18:15 Temperature Pulse Rate 96 101 H 101 H Respiratory Rate 27 H 28 H 19 Blood Pressure 143/85 H 152/76 H Pulse Oximetry 98 99 100 Oxygen Delivery 04/19/24 18:31 04/19/24 19:00 04/19/24 19:01 Temperature Pulse Rate 103 H 105 H 108 H Respiratory Rate 19 23 H 21 H Blood Pressure 153/73 H 137/54 L Pulse Oximetry 97 100 97 Oxygen Delivery 04/19/24 19:32 04/19/24 20:00 04/19/24 20:10 Temperature 99.2 F Pulse Rate 109 H 103 H 107 H Respiratory Rate 21 H 20 18 Blood Pressure 100/87 131/62 134/77 Pulse Oximetry 98 97 96 Oxygen Delivery 04/19/24 20:15 04/19/24 21:05 04/20/24 05:15 Temperature 99.1 F Pulse Rate 98 91 Respiratory Rate 19 22 H Blood Pressure 127/62 Pulse Oximetry 97 92 Oxygen Delivery Room Air 04/20/24 08:00 Temperature Pulse Rate Respiratory Rate Blood Pressure Pulse Oximetry Oxygen Delivery Room Air Exam 2 Const: General: comfortable and no acute distress Nutritional Appearance: a verage body habitus Orientation/consciousness: patient oriented x3 HENMT: Head: normocephalic and atraumatic Ears: hearing grossly normal bilaterally Mouth: Yes moist mucous membranes Eyes: General: appearance normal, both eyes and all related structures P upils: Equal, round and reactive pupils present Neck: Neck: normal visual inspection and full ROM Resp: Effort & Inspection: no respiratory distress Auscultation: clear to auscultation bilaterally Cardio: Rate: regular rate Rhythm: regular rhythm Peripheral pulses: P eripheral pulses 2+ throughout GI: Inspection: non-distended, no scars (No obvious large scars) and no visible herniation GI Palp: Yes Soft to palpation, Yes Tenderness to palpation present (GI) (Mild right lower quadrant tenderness), No Guarding due to palpation present (GI), Yes No hepatosplenomegaly present and No Rebound tenderness present Percussion: Yes normal to percussion Auscultation: n ormal bowel sounds Skin: General skin exam: normal color Neuro: General: moves all extremities and no focal motor deficits Speech: n ormal speech Motor exam (neuro): 5/5 motor strength present throughout Extrem: General: normal to inspection and no edema Psych: Mental Status: mental status grossly normal Attitude: cooperative Insight: Good insight present (Psych) Judgement: Good judgement present (Psych) Results Labs 04/20/24 06:45 04/20/24 06:45 Labs: Abnormal lab results 04/19/24 04/20/24 Range/Units 15:15 06:45 WBC 14.4 H 10.2 H (4.5-10.0) K/mm3 RBC 3.69 L (4.2-5.4) M/mm3 Hgb 11.5 L (12.0-15.0) g/dL Hct 34.4 L (37.0-47.0) % Neut % (Auto) 87.3 H 82.5 H (45.5-73.1) % Lymph % (Auto) 5.2 L 6.4 L (18.3-44.2) % [place] % (Auto) 10.0 H (2.6-8.5) % Lymph # (Auto) 0.75 L 0.65 L (0.9-3.2) K/mm3 [place] # (Auto) 1.0 H 1.0 H (0.1-0.6) K/mm3 Abs Immat Gran (auto) 0.04 H 0.05 H (0.00-0.031) K/mm3 Absolute Neuts (auto) 12.6 H 8.4 H (1.3-6.7) K/mm3 PT 14.8 H (11.1-14.7) Seconds Potassium 3.3 L (3.4-5.0) mmol/L Anion Gap 15 H (4-12) mmol/L BUN 25 H 20 H (7-17) mg/dL Creatinine 0.59 L (0.7-1.0) mg/dL Glucose 122 H (65-110) mg/dL Calcium 8.2 L (8.4-10.2) mg/dL Diabetes panel 04/19/24 04/20/24 Range/Units 15:15 06:45 Sodium 137 138 (137-145) mmol/L Potassium 3.4 3.3 L (3.4-5.0) mmol/L Chloride 98 106 (98-107) mmol/L Carbon Dioxide 24 23 (22-30) mmol/L BUN 25 H 20 H (7-17) mg/dL Creatinine 0.77 0.59 L (0.7-1.0) mg/dL Glucose 122 H 101 (65-110) mg/dL Calcium 9.4 8.2 L (8.4-10.2) mg/dL AST 17 (14-36) U/L ALT 15 (6-35) U/L Alkaline Phosphatase 114 (38-126) U/L Total Protein 8.0 (6.3-8.2) g/dL Albumin 3.8 (3.5-5.1) g/dL Calcium panel 04/19/24 04/20/24 Range/Units 15:15 06:45 Calcium 9.4 8.2 L (8.4-10.2) mg/dL Albumin 3.8 (3.5-5.1) g/dL Pituitary panel 04/19/24 04/20/24 Range/Units 15:15 06:45 Sodium 137 138 (137-145) mmol/L Potassium 3.4 3.3 L (3.4-5.0) mmol/L Chloride 98 106 (98-107) mmol/L Carbon Dioxide 24 23 (22-30) mmol/L BUN 25 H 20 H (7-17) mg/dL Creatinine 0.77 0.59 L (0.7-1.0) mg/dL Glucose 122 H 101 (65-110) mg/dL Calcium 9.4 8.2 L (8.4-10.2) mg/dL Adrenal panel 04/19/24 04/20/24 Range/Units 15:15 06:45 Sodium 137 138 (137-145) mmol/L Potassium 3.4 3.3 L (3.4-5.0) mmol/L Chloride 98 106 (98-107) mmol/L Carbon Dioxide 24 23 (22-30) mmol/L BUN 25 H 20 H (7-17) mg/dL Creatinine 0.77 0.59 L (0.7-1.0) mg/dL Glucose 122 H 101 (65-110) mg/dL Calcium 9.4 8.2 L (8.4-10.2) mg/dL Total Bilirubin 0.9 (0.2-1.3) mg/dL AST 17 (14-36) U/L ALT 15 (6-35) U/L Alkaline Phosphatase 114 (38-126) U/L Total Protein 8.0 (6.3-8.2) g/dL Albumin 3.8 (3.5-5.1) g/dL All other labs normal.
--- NOTE | 2024-04-20 10:34 | P.PNIM_ITS ---
Progress Note: A&P Assessment and Plan (1) Diverticulitis of intestine with perforation and abscess: Code(s): K57.80 - Diverticulitis of intestine, part unspecified, with perforation and abscess without bleeding Status: Acute Plan This is a pleasant 73-year-old female with a past medical history left breast cancer status post lumpectomy on 07/06/2023 status post breast radiation home, hypertension, hypercholesterolemia, nephrolithiasis, collagenous colitis who presents to [place] ER with complaint of abdominal pain nausea vomiting and watery brown diarrhea for 3 days. Perforated sigmoid diverticulitis She had an outpatient CT of abdomen pelvis performed showed perforated diverticulitis with abscess. CT abdomen pelvis on 04/19/2024 at 1:36 p.m. demonstrated perforated sigmoid diverticulitis with gas and fluid-filled collections the deep pelvis suspicious for developing abscess and reactive ileitis. Start Zosyn IV Consulted IR and general surgeon Sepsis Upon arrival to ED, patient had tachycardia tachypnea, White blood cell count of 14.4. Low-grade fever Meeting criteria of sepsis Continue fluid resuscitation Continue Zosyn Follow-up blood culture Keep patient p.o. advance diet per general surgeon SCDs for DVT prophylaxis Patient wishes to be full code Subjective Date/time seen: 04/20/24 10:34 Interval history: I saw and exam patient today, patient still has lower abdomen pain, well controlled with narcotic medication. Patient denies nausea vomiting. Patient is afebrile, blood pressure is stable. Leukocytosis improving Exam Narrative: GENERAL: Pleasant, in no acute distress. Well-nourished. - EYES: EOMI. Anicteric. - HENT: Moist mucous membranes. - LUNGS: Clear to auscultation bilateral ly, no wheezing, rhonchi, or rales. - CARDIOVASCULAR: Regular rate and rhyth m. No murmur. No JVD. - ABDOMEN: Soft, lower abdominal tender and non-distended. No palpable masses. - EXTREMITIES: No edema. Peripheral puls es 2+. Non-tender. - NEUROLOGIC: No focal neurological defi cits. CN II-XII grossly intact. - PSYCHIATRIC: Awake, Alert and oriented x 3. Appropriate mood and affect. - SKIN: No rashes or lesions. Warm. - LYMPH: No cervical lymphadenopathy. Objective Data Vital Signs Vital Signs: Vital Signs - 24 hr 04/19/24 16:06 04/19/24 16:31 04/19/24 16:46 Temperature Pulse Rate 99 96 91 Respiratory Rate 19 17 20 Blood Pressure 139/84 145/64 H Pulse Oximetry 99 100 99 Oxygen Delivery 04/19/24 17:31 04/19/24 18:01 04/19/24 18:15 Temperature Pulse Rate 96 101 H 101 H Respiratory Rate 27 H 28 H 19 Blood Pressure 143/85 H 152/76 H Pulse Oximetry 98 99 100 Oxygen Delivery 04/19/24 18:31 04/19/24 19:00 04/19/24 19:01 Temperature Pulse Rate 103 H 105 H 108 H Respiratory Rate 19 23 H 21 H Blood Pressure 153/73 H 137/54 L Pulse Oximetry 97 100 97 Oxygen Delivery 04/19/24 19:32 04/19/24 20:00 04/19/24 20:10 Temperature 99.2 F Pulse Rate 109 H 103 H 107 H Respiratory Rate 21 H 20 18 Blood Pressure 100/87 131/62 134/77 Pulse Oximetry 98 97 96 Oxygen Delivery 04/19/24 20:15 04/19/24 21:05 04/20/24 05:15 Temperature 99.1 F Pulse Rate 98 91 Respiratory Rate 19 22 H Blood Pressure 127/62 Pulse Oximetry 97 92 Oxygen Delivery Room Air 04/20/24 08:00 Temperature Pulse Rate Respiratory Rate Blood Pressure Pulse Oximetry Oxygen Delivery Room Air Intake/Output Intake/Output: Intake & Output 04/17/24 04/18/24 04/19/24 04/20/24 23:59 23:59 23:59 23:59 Intake Total 200 125 Balance 200 125 Meds/Results Medications: Active Medications Generic Name Dose Route Start Last Admin Trade Name Freq PRN Reason Stop Dose Admin Acetaminophen 650 mg 04/19/24 21:12 Acetaminophen 650 Mg Suppository RECTAL Q6H PRN Mild Pain (1-3) or Fever Buspirone HCl 5 mg 04/19/24 23:56 04/20/24 08:42 Buspirone Hcl 5 Mg Tablet PO 5 mg TID PRN Administration Anxiety Ceftriaxone Sodium 2 gm in 100 mls @ 200 mls/hr 04/20/24 15:00 Rocephin 2 Gm/Ns 100 Ml IVPB Q24H CINTIA Metronidazole 500 mg in 100 mls @ 100 mls/hr 04/19/24 01:00 04/20/24 08:40 Flagyl 500 Mg/Iso Soln 100 Ml IVPB 100 mls/hr Q8H CINTIA Administration Sodium Chloride 1,000 mls @ 75 mls/hr 04/19/24 21:20 04/19/24 22:10 Normal Saline Iv IV CONT 75 mls/hr .[id number] CINTIA Administration Miscellaneous Information 0 each 04/20/24 00:01 Sulfasalazine Comments Say Reduce To Prn?? Please Clarify If No Longer Scheduled Med And XX 05/20/24 00:00 CLARIFY CINTIA Morphine Sulfate 2 mg 04/19/24 21:12 04/20/24 06:35 Morphine Sulfate (*Crx) 2 Mg/Ml Inj IV PUSH 2 mg Q4H PRN Administration Pain Rated 7-10 Ondansetron HCl 4 mg 04/19/24 21:16 Ondansetron Inj 4 Mg/2 Ml Vial IV PUSH Q4H PRN Nausea And Vomiting Tamoxifen Citrate 20 mg 04/20/24 09:00 04/20/24 08:40 Tamoxifen Citrate (*Chemo) 10 Mg Tablet PO 20 mg DAILY CINTIA Administration Trazodone HCl 25 mg 04/19/24 23:56 Trazodone Hcl 25 Mg Tablet PO HS PRN Sleep Labs Labs: Laboratory Results - last 24 hr 04/19/24 04/20/24 15:15 06:45 WBC 14.4 H 10.2 H RBC 4.48 3.69 L Hgb 14.0 11.5 L Hct 41.8 34.4 L MCV 93.3 93.2 MCH 31.3 31.2 MCHC 33.5 33.4 RDW 13.2 12.9 Plt Count 339 290 MPV 9.8 9.9 Immature Gran % (Auto) 0.3 0.5 Neut % (Auto) 87.3 H 82.5 H Lymph % (Auto) 5.2 L 6.4 L [place] % (Auto) 6.8 10.0 H Eos % (Auto) 0.2 0.4 Baso % (Auto) 0.2 0.2 Lymph # (Auto) 0.75 L 0.65 L [place] # (Auto) 1.0 H 1.0 H Eos # (Auto) 0.0 0.0 Baso # (Auto) 0.0 0.0 Abs Immat Gran (auto) 0.04 H 0.05 H Absolute Neuts (auto) 12.6 H 8.4 H Absolute Nucleated RBC 0.000 0.000 Nucleated RBC % 0.0 0.0 PT 14.8 H INR 1.1 Sodium 137 138 Potassium 3.4 3.3 L Chloride 98 106 Carbon Dioxide 24 23 Anion Gap 15 H 9 BUN 25 H 20 H Creatinine 0.77 0.59 L Estim Creat Clear Calc 57 75 Estimated GFR > 60 > 60 Glucose 122 H 101 Lactic Acid 1.6 Calcium 9.4 8.2 L Magnesium 2.2 Total Bilirubin 0.9 AST 17 ALT 15 Alkaline Phosphatase 114 Total Protein 8.0 Albumin 3.8
[2024-04-20] MEDS: LACTATED RINGERS 1,000 ML 100 ML IV CONT (11:13)
[2024-04-20] MEDS: POTASSIUM CHLORIDE INJ 40 MEQ in SODIUM CHLORIDE 0.9% IV 500 ML 130 MEQ IVPB (11:15)
[2024-04-20] MEDS: PIPERACILLN/TAZ 3.375GM/NS50ML 3.375 GM/50 ML BAG IVPB ×3 (11:18→23:07)
[2024-04-20 14:00] VITALS: BP 125/43; PULSE 86; RESP 18; TEMP 37.1; O2SAT 96
[2024-04-20 21:16] VITALS: BP 134/50; PULSE 89; RESP 18; TEMP 36.9; O2SAT 96
--- NOTE | 2024-04-20 23:01 | PC.NURSE ---
This patient, Kathryn Espitia, was transferred to room [facility] on 04/20/24 at 2302. Personal belongings moved with patient.
[2024-04-21] MEDS: LACTATED RINGERS 1,000 ML 100 ML IV CONT ×2 (01:47→14:36)
[2024-04-21] MEDS: PIPERACILLN/TAZ 3.375GM/NS50ML 3.375 GM/50 ML BAG IVPB ×4 (05:12→23:59)
[2024-04-21 05:23] VITALS: BP 145/61; PULSE 99; RESP 16; TEMP 36.6; O2SAT 96
[2024-04-21 06:38] LABS: Anion Gap 9 mmol/L (4-12); Blood Urea Nitrogen 16 mg/dL (7-17); CRP 8.8 mg/dL (<1.0); Carbon Dioxide 20 mmol/L (22-30); Chloride 110 mmol/L (98-107); Estimated CRCL calculation 82 ml/min; Estimated Glomerular Filt Rate > 60; Glucose 91 mg/dL (65-110); Potassium 3.6 mmol/L (3.4-5.0); Sodium 139 mmol/L (137-145)
[2024-04-21 07:18] LABS: Hematocrit 33.4 % (37.0-47.0); Hemoglobin 10.9 g/dL (12.0-15.0); Mean Corpuscular HGB Conc 32.6 g/dl (32-36); Mean Corpuscular Hemoglobin 31.1 pg (26-34); Mean Corpuscular Volume 95.2 fl (80-100); Mean Platelet Volume 9.2 fl (7.4-10.4); Platelet Count Result 268 k/mm3 (150-375); Red Blood Count 3.51 M/mm3 (4.2-5.4); Red Cell Distribution Width 13.2 % (11.5-14.5)
[2024-04-21] MEDS: busPIRone HCL 5 MG TABLET PO (08:06)
[2024-04-21] MEDS: TAMOXIFEN CITRATE (*CHEMO) 10 MG TABLET 20 MG PO (08:06)
[2024-04-21] MEDS: MORPHINE SULFATE (*CRX) 2 MG/ML INJ IV PUSH ×2 (08:10→22:03)
[2024-04-21 14:00] VITALS: BP 134/62; PULSE 54; RESP 16; TEMP 35.2; O2SAT 96
--- NOTE | 2024-04-21 16:00 | P.PNIM_ITS ---
Progress Note: A&P Assessment and Plan (1) Diverticulitis of intestine with perforation and abscess: Code(s): K57.80 - Diverticulitis of intestine, part unspecified, with perforation and abscess without bleeding Status: Acute Plan This is a pleasant 73-year-old female with a past medical history left breast cancer status post lumpectomy on 07/06/2023 status post breast radiation home, hypertension, hypercholesterolemia, nephrolithiasis, collagenous colitis who presents to [place] ER with complaint of abdominal pain nausea vomiting and watery brown diarrhea for 3 days. Perforated sigmoid diverticulitis She had an outpatient CT of abdomen pelvis performed showed perforated diverticulitis with abscess. CT abdomen pelvis on 04/19/2024 at 1:36 p.m. demonstrated perforated sigmoid diverticulitis with gas and fluid-filled collections the deep pelvis suspicious for developing abscess and reactive ileitis. Start Zosyn IV Consulted general surgeon Appreciate general surgical consultation, continue antibiotics treatment, the emergent surgical intervention Sepsis Upon arrival to ED, patient had tachycardia tachypnea, White blood cell count of 14.4. Low-grade fever Meeting criteria of sepsis Continue fluid resuscitation Continue Zosyn Follow-up blood culture no growth advance to clear diet per general surgeon SCDs for DVT prophylaxis Patient wishes to be full code Subjective Date/time seen: 04/21/24 16:00 Interval history: I saw and exam patient today, patient still has lower abdomen pain, a patient feels better today. Patient denies nausea vomiting. Patient is afebrile, blood pressure is stable. Leukocytosis improving, patient is afebrile, but has hypot hermia 95.3 Exam Narrative: GENERAL: Pleasant, in no acute distress. Well-nourished. - EYES: EOMI. Anicteric. - HENT: Moist mucous membranes. - LUNGS: Clear to auscultation bilateral ly, no wheezing, rhonchi, or rales. - CARDIOVASCULAR: Regular rate and rhyth m. No murmur. No JVD. - ABDOMEN: Soft, lower abdominal tender and non-distended. No palpable masses. - EXTREMITIES: No edema. Peripheral puls es 2+. Non-tender. - NEUROLOGIC: No focal neurological defi cits. CN II-XII grossly intact. - PSYCHIATRIC: Awake, Alert and oriented x 3. Appropriate mood and affect. - SKIN: No rashes or lesions. Warm. - LYMPH: No cervical lymphadenopathy. Objective Data Vital Signs Vital Signs: Vital Signs - 24 hr 04/20/24 20:00 04/20/24 21:16 04/21/24 05:23 Temperature 98.5 F 97.8 F Pulse Rate 89 99 Respiratory Rate 18 16 Blood Pressure 134/50 L 145/61 H Pulse Oximetry 96 96 Oxygen Delivery Room Air 04/21/24 08:00 04/21/24 14:00 Temperature 95.3 F L Pulse Rate 54 L Respiratory Rate 16 Blood Pressure 134/62 Pulse Oximetry 96 Oxygen Delivery Room Air Intake/Output Intake/Output: Intake & Output 04/18/24 04/19/24 04/20/24 04/21/24 23:59 23:59 23:59 23:59 Intake Total 927 259 7315.0 Balance 117 224 8574.0 Meds/Results Medications: Active Medications Generic Name Dose Route Start Last Admin Trade Name Freq PRN Reason Stop Dose Admin Acetaminophen 650 mg 04/19/24 21:12 Acetaminophen 650 Mg Suppository RECTAL Q6H PRN Mild Pain (1-3) or Fever Buspirone HCl 5 mg 04/19/24 23:56 04/21/24 08:06 Buspirone Hcl 5 Mg Tablet PO 5 mg TID PRN Administration Anxiety Piperacillin/Tazobactam/Dextrose 3.375 gm in 50 mls @ 100 mls/hr 04/20/24 10:40 04/21/24 11:43 Zosyn 3.375 Gm/Ns 50 Ml IVPB Infused Q6HR CINTIA Infusion Lactated Ringer's 1,000 mls @ 100 mls/hr 04/20/24 10:40 04/21/24 14:36 Lr - Lactated Ringers Iv IV CONT 100 mls/hr .Q10H CINTIA Administration Morphine Sulfate 2 mg 04/19/24 21:12 04/21/24 08:10 Morphine Sulfate (*Crx) 2 Mg/Ml Inj IV PUSH 2 mg Q4H PRN Administration Pain Rated 7-10 Ondansetron HCl 4 mg 04/19/24 21:16 Ondansetron Inj 4 Mg/2 Ml Vial IV PUSH Q4H PRN Nausea And Vomiting Tamoxifen Citrate 20 mg 04/20/24 09:00 04/21/24 08:06 Tamoxifen Citrate (*Chemo) 10 Mg Tablet PO 20 mg DAILY CINTIA Administration Trazodone HCl 25 mg 04/19/24 23:56 Trazodone Hcl 25 Mg Tablet PO HS PRN Sleep Labs Labs: Laboratory Results - last 24 hr 04/21/24 04/21/24 06:08 07:02 WBC 11.0 H RBC 3.51 L Hgb 10.9 L Hct 33.4 L MCV 95.2 MCH 31.1 MCHC 32.6 RDW 13.2 Plt Count 268 MPV 9.2 Sodium 139 Potassium 3.6 Chloride 110 H Carbon Dioxide 20 L Anion Gap 9 BUN 16 Creatinine 0.53 L Estim Creat Clear Calc 82 Estimated GFR > 60 Glucose 91 Calcium 8.0 L C-Reactive Protein 8.8 H
--- NOTE | 2024-04-21 16:36 | P.PNGS_ITS ---
Progress Note: A&P Assessment and Plan (1) Diverticulitis of intestine with perforation and abscess: Qualifiers: Diverticulitis site: large intestine Diverticulitis bleeding: without bleeding Qualified Code(s): K57.20 - Diverticulitis of large intestine with perforation and abscess without bleeding Code(s): K57.80 - Diverticulitis of intestine, part unspecified, with perforation and abscess without bleeding Status: Acute Assessment and Plan: * Slowly improving. Continue Zosyn. Will start clear liquids today. Subjective Subjective Date/Time Seen: 04/21/24 16:36 Interval history: Feeling a little better today. No BM yet. Pain improved. No nausea or vomiting. Exam GI: Inspection: non-distended GI Palp: Yes Soft to palpation, Yes Tenderness to palpation present (GI) (mild LLQ), No Guarding due to palpation present (GI) and No Rebound tenderness present Objective Data Vital Signs Vital Signs: Vital Signs - 24 hr 04/20/24 20:00 04/20/24 21:16 04/21/24 05:23 Temperature 98.5 F 97.8 F Pulse Rate 89 99 Respiratory Rate 18 16 Blood Pressure 134/50 L 145/61 H Pulse Oximetry 96 96 Oxygen Delivery Room Air 04/21/24 08:00 04/21/24 14:00 Temperature 95.3 F L Pulse Rate 54 L Respiratory Rate 16 Blood Pressure 134/62 Pulse Oximetry 96 Oxygen Delivery Room Air Intake/Output Intake/Output: Intake & Output 04/18/24 04/19/24 04/20/24 04/21/24 23:59 23:59 23:59 23:59 Intake Total 565 079 8443.0 Balance 315 686 9084.0 Meds/Results Medications: Active Medications Generic Name Dose Route Start Last Admin Trade Name Freq PRN Reason Stop Dose Admin Acetaminophen 650 mg 04/19/24 21:12 Acetaminophen 650 Mg Suppository RECTAL Q6H PRN Mild Pain (1-3) or Fever Buspirone HCl 5 mg 04/19/24 23:56 04/21/24 08:06 Buspirone Hcl 5 Mg Tablet PO 5 mg TID PRN Administration Anxiety Piperacillin/Tazobactam/Dextrose 3.375 gm in 50 mls @ 100 mls/hr 04/20/24 10:40 04/21/24 11:43 Zosyn 3.375 Gm/Ns 50 Ml IVPB Infused Q6HR CINTIA Infusion Lactated Ringer's 1,000 mls @ 100 mls/hr 04/20/24 10:40 04/21/24 14:36 Lr - Lactated Ringers Iv IV CONT 100 mls/hr .Q10H CINTIA Administration Morphine Sulfate 2 mg 04/19/24 21:12 04/21/24 08:10 Morphine Sulfate (*Crx) 2 Mg/Ml Inj IV PUSH 2 mg Q4H PRN Administration Pain Rated 7-10 Ondansetron HCl 4 mg 04/19/24 21:16 Ondansetron Inj 4 Mg/2 Ml Vial IV PUSH Q4H PRN Nausea And Vomiting Tamoxifen Citrate 20 mg 04/20/24 09:00 04/21/24 08:06 Tamoxifen Citrate (*Chemo) 10 Mg Tablet PO 20 mg DAILY CINTIA Administration Trazodone HCl 25 mg 04/19/24 23:56 Trazodone Hcl 25 Mg Tablet PO HS PRN Sleep Labs Labs: Laboratory Results - last 24 hr 04/21/24 04/21/24 06:08 07:02 WBC 11.0 H RBC 3.51 L Hgb 10.9 L Hct 33.4 L MCV 95.2 MCH 31.1 MCHC 32.6 RDW 13.2 Plt Count 268 MPV 9.2 Sodium 139 Potassium 3.6 Chloride 110 H Carbon Dioxide 20 L Anion Gap 9 BUN 16 Creatinine 0.53 L Estim Creat Clear Calc 82 Estimated GFR > 60 Glucose 91 Calcium 8.0 L C-Reactive Protein 8.8 H
[2024-04-21 20:46] VITALS: BP 139/65; PULSE 86; RESP 16; TEMP 37; O2SAT 97
[2024-04-22] MEDS: PIPERACILLN/TAZ 3.375GM/NS50ML 3.375 GM/50 ML BAG IVPB ×4 (05:30→23:20)
[2024-04-22 05:35] VITALS: BP 141/61; PULSE 86; RESP 16; TEMP 36.8; O2SAT 96
[2024-04-22] MEDS: LACTATED RINGERS 1,000 ML 100 ML IV CONT (06:11)
[2024-04-22 06:23] LABS: Anion Gap 8 mmol/L (4-12); Blood Urea Nitrogen 11 mg/dL (7-17); Carbon Dioxide 22 mmol/L (22-30); Chloride 105 mmol/L (98-107); Estimated CRCL calculation 85 ml/min; Estimated Glomerular Filt Rate > 60; Glucose 110 mg/dL (65-110); Potassium 3.5 mmol/L (3.4-5.0); Sodium 135 mmol/L (137-145)
[2024-04-22 06:34] LABS: Hematocrit 35.1 % (37.0-47.0); Hemoglobin 11.5 g/dL (12.0-15.0); Mean Corpuscular HGB Conc 32.8 g/dl (32-36); Mean Corpuscular Hemoglobin 31.4 pg (26-34); Mean Corpuscular Volume 95.9 fl (80-100); Mean Platelet Volume 9.7 fl (7.4-10.4); Platelet Count Result 324 k/mm3 (150-375); Red Blood Count 3.66 M/mm3 (4.2-5.4); White Blood Count 12.8 K/mm3 (4.5-10.0)
[2024-04-22] MEDS: TAMOXIFEN CITRATE (*CHEMO) 10 MG TABLET 20 MG PO (08:58)
[2024-04-22] MEDS: MORPHINE SULFATE (*CRX) 2 MG/ML INJ IV PUSH (08:59)
[2024-04-22] MEDS: busPIRone HCL 5 MG TABLET PO (08:59)
--- NOTE | 2024-04-22 10:34 | P.PNGS_ITS ---
Progress Note: A&P Assessment and Plan (1) Diverticulitis of intestine with perforation and abscess: Qualifiers: Diverticulitis bleeding: without bleeding Diverticulitis site: large intestine Qualified Code(s): K57.20 - Diverticulitis of large intestine with perforation and abscess without bleeding Code(s): K57.80 - Diverticulitis of intestine, part unspecified, with perforation and abscess without bleeding Status: Acute Assessment and Plan: * WBC up to 12.8 today. Clinically improving with RLQ pain and tenderness improved today. * Will try advancing to full liquids. Will give options for oral analgesics. * Continue IV Zosyn * Repeat labs in the am. If WBC continues to trend up or pain is worse, will need to consider repeating a CT scan. Plan I have discussed the patient's case and plan of care with Dr. Brown. Subjective Subjective Date/Time Seen: 04/22/24 10:34 Patient reports: feels better, pain is less, tolerating liquids well, flatus, no bowel movement and afebrile Interval history: Feeling better today. RLQ pain is less today and she is requesting other options for pain medication because she feels her pain is not severe enough to require Morphine. No nausea or vomiting. Reports some bloating. Passing flatus, no BM yet since admission. Exam Const: General: comfortable and no acute distress Orientation /consciousness: patient oriented x3 GI: Inspection: non-distended GI Palp: Yes Soft to palpation, Yes Tende rness to palpation present (GI) (mild RLQ tenderness), No Guarding due to palpation present (GI) and No Rebound tenderness present Percussion: Yes normal to percussion Auscultation: normal bowel sounds Objective Data Vital Signs Vital Signs: Vital Signs - 24 hr 04/21/24 14:00 04/21/24 20:46 04/22/24 05:35 Temperature 95.3 F L 98.6 F 98.2 F Pulse Rate 54 L 86 86 Respiratory Rate 16 16 16 Blood Pressure 134/62 139/65 141/61 H Pulse Oximetry 96 97 96 Oxygen Delivery 04/22/24 07:56 Temperature Pulse Rate Respiratory Rate Blood Pressure Pulse Oximetry Oxygen Delivery Room Air Intake/Output Intake/Output: Intake & Output 04/19/24 04/20/24 04/21/24 04/22/24 23:59 23:59 23:59 23:59 Intake Total 442 673 3737.0 1650 Balance 785 525 0687.0 1650 Meds/Results Medications: Active Medications Generic Name Dose Route Start Last Admin Trade Name Freq PRN Reason Stop Dose Admin Acetaminophen 650 mg 04/19/24 21:12 Acetaminophen 650 Mg Suppository RECTAL Q6H PRN Mild Pain (1-3) or Fever Buspirone HCl 5 mg 04/19/24 23:56 04/22/24 08:59 Buspirone Hcl 5 Mg Tablet PO 5 mg TID PRN Administration Anxiety Piperacillin/Tazobactam/Dextrose 3.375 gm in 50 mls @ 100 mls/hr 04/20/24 10:40 04/22/24 06:00 Zosyn 3.375 Gm/Ns 50 Ml IVPB Infused Q6HR CINTIA Infusion Lactated Ringer's 1,000 mls @ 100 mls/hr 04/20/24 10:40 04/22/24 06:11 Lr - Lactated Ringers Iv IV CONT 100 mls/hr .Q10H CINTIA Administration Morphine Sulfate 2 mg 04/19/24 21:12 04/22/24 08:59 Morphine Sulfate (*Crx) 2 Mg/Ml Inj IV PUSH 2 mg Q4H PRN Administration Pain Rated 7-10 Ondansetron HCl 4 mg 04/19/24 21:16 Ondansetron Inj 4 Mg/2 Ml Vial IV PUSH Q4H PRN Nausea And Vomiting Tamoxifen Citrate 20 mg 04/20/24 09:00 04/22/24 08:58 Tamoxifen Citrate (*Chemo) 10 Mg Tablet PO 20 mg DAILY CINTIA Administration Trazodone HCl 25 mg 04/19/24 23:56 Trazodone Hcl 25 Mg Tablet PO HS PRN Sleep Labs Labs: Laboratory Results - last 24 hr 04/22/24 05:47 WBC 12.8 H RBC 3.66 L Hgb 11.5 L Hct 35.1 L MCV 95.9 MCH 31.4 MCHC 32.8 RDW 13.0 Plt Count 324 MPV 9.7 Sodium 135 L Potassium 3.5 Chloride 105 Carbon Dioxide 22 Anion Gap 8 BUN 11 D Creatinine 0.51 L Estim Creat Clear Calc 85 Estimated GFR > 60 Glucose 110 Calcium 8.0 L
[2024-04-22] MEDS: POTASSIUM CHLORIDE 20 MEQ PACKET (FOR LIQUID) PO (11:15)
[2024-04-22 14:00] VITALS: BP 131/55; PULSE 90; RESP 20; TEMP 36.7; O2SAT 97
--- NOTE | 2024-04-22 15:59 | P.PNIM_ITS ---
Progress Note: A&P Assessment and Plan (1) Diverticulitis of intestine with perforation and abscess: Qualifiers: Diverticulitis bleeding: without bleeding Diverticulitis site: large intestine Qualified Code(s): K57.20 - Diverticulitis of large intestine with perforation and abscess without bleeding Code(s): K57.80 - Diverticulitis of intestine, part unspecified, with perforation and abscess without bleeding Status: Acute Plan This is a pleasant 73-year-old female with a past medical history left breast cancer status post lumpectomy on 07/06/2023 status post breast radiation home, hypertension, hypercholesterolemia, nephrolithiasis, collagenous colitis who presents to [place] ER with complaint of abdominal pain nausea vomiting and watery brown diarrhea for 3 days. Perforated sigmoid diverticulitis She had an outpatient CT of abdomen pelvis performed showed perforated diverticulitis with abscess. CT abdomen pelvis on 04/19/2024 at 1:36 p.m. demonstrated perforated sigmoid diverticulitis with gas and fluid-filled collections the deep pelvis suspicious for developing abscess and reactive ileitis. Start Zosyn IV Consulted general surgeon Appreciate general surgical consultation, continue antibiotics treatment, the emergent surgical intervention Continue antibiotics treatment Sepsis Upon arrival to ED, patient had tachycardia tachypnea, White blood cell count of 14.4. Low-grade fever Meeting criteria of sepsis Continue fluid resuscitation Continue Zosyn Follow-up blood culture no growth Sepsis resolved advance to diet per general surgeon SCDs for DVT prophylaxis Patient wishes to be full code Subjective Date/time seen: 04/22/24 15:59 Interval history: I saw and exam patient today, patient still has lower abdomen pain, patient improving, a patient feels better today. Patient denies nausea vomiting. Patient is afebrile, blood pressure is stable. Leukocytosis improving, patient is afebrile, blood pressure stable, Exam Narrative: GENERAL: Pleasant, in no acute distress. Well-nourished. - EYES: EOMI. Anicteric. - HENT: Moist mucous membranes. - LUNGS: Clear to auscultation bilateral ly, no wheezing, rhonchi, or rales. - CARDIOVASCULAR: Regular rate and rhyth m. No murmur. No JVD. - ABDOMEN: Soft, lower abdominal tender and non-distended. No palpable masses. - EXTREMITIES: No edema. Peripheral puls es 2+. Non-tender. - NEUROLOGIC: No focal neurological defi cits. CN II-XII grossly intact. - PSYCHIATRIC: Awake, Alert and oriented x 3. Appropriate mood and affect. - SKIN: No rashes or lesions. Warm. - LYMPH: No cervical lymphadenopathy. Objective Data Vital Signs Vital Signs: Vital Signs - 24 hr 04/21/24 20:46 04/22/24 05:35 04/22/24 07:56 Temperature 98.6 F 98.2 F Pulse Rate 86 86 Respiratory Rate 16 16 Blood Pressure 139/65 141/61 H Pulse Oximetry 97 96 Oxygen Delivery Room Air 04/22/24 14:00 Temperature 98.1 F Pulse Rate 90 Respiratory Rate 20 Blood Pressure 131/55 L Pulse Oximetry 97 Oxygen Delivery Intake/Output Intake/Output: Intake & Output 04/19/24 04/20/24 04/21/24 04/22/24 23:59 23:59 23:59 23:59 Intake Total 217 516 4462.0 2608.3 Balance 786 455 7034.0 2608.3 Meds/Results Medications: Active Medications Generic Name Dose Route Start Last Admin Trade Name Freq PRN Reason Stop Dose Admin Acetaminophen 650 mg 04/22/24 10:35 Acetaminophen 325 Mg Tablet PO Q6H PRN Mild Pain (1-3) or Fever Hydrocodone Bitart/Acetaminophen 1 tab 04/22/24 10:35 Hydrocodone/Acetaminophen (*Crx) 5-325 Mg Tablet PO Q4H PRN Pain Rated 4-6 Hydrocodone Bitart/Acetaminophen 1 tab 04/22/24 10:35 Hydrocodone/Acetaminophen (*Crx) 7.5-325 Mg Tablet PO Q6H PRN Pain Rated 7-10 Buspirone HCl 5 mg 04/19/24 23:56 04/22/24 08:59 Buspirone Hcl 5 Mg Tablet PO 5 mg TID PRN Administration Anxiety Piperacillin/Tazobactam/Dextrose 3.375 gm in 50 mls @ 100 mls/hr 04/20/24 10:40 04/22/24 11:15 Zosyn 3.375 Gm/Ns 50 Ml IVPB 100 mls/hr Q6HR CINTIA Administration Lactated Ringer's 1,000 mls @ 50 mls/hr 04/20/24 10:40 04/22/24 11:07 Lr - Lactated Ringers Iv IV CONT 50 mls/hr .Q20H CINTIA Infusion Morphine Sulfate 2 mg 04/19/24 21:12 04/22/24 08:59 Morphine Sulfate (*Crx) 2 Mg/Ml Inj IV PUSH 2 mg Q4H PRN Administration Pain Rated 7-10 Ondansetron HCl 4 mg 04/19/24 21:16 Ondansetron Inj 4 Mg/2 Ml Vial IV PUSH Q4H PRN Nausea And Vomiting Tamoxifen Citrate 20 mg 04/20/24 09:00 04/22/24 08:58 Tamoxifen Citrate (*Chemo) 10 Mg Tablet PO 20 mg DAILY CINTIA Administration Trazodone HCl 25 mg 04/19/24 23:56 Trazodone Hcl 25 Mg Tablet PO HS PRN Sleep Labs Labs: Laboratory Results - last 24 hr 04/22/24 05:47 WBC 12.8 H RBC 3.66 L Hgb 11.5 L Hct 35.1 L MCV 95.9 MCH 31.4 MCHC 32.8 RDW 13.0 Plt Count 324 MPV 9.7 Sodium 135 L Potassium 3.5 Chloride 105 Carbon Dioxide 22 Anion Gap 8 BUN 11 D Creatinine 0.51 L Estim Creat Clear Calc 85 Estimated GFR > 60 Glucose 110 Calcium 8.0 L
[2024-04-22 22:00] VITALS: BP 136/72; PULSE 86; RESP 18; TEMP 36.8; O2SAT 96
[2024-04-22] MEDS: HYDROcodone/acetaminophen (*CRX) 7.5-325 MG TABLET 1 TAB PO (22:14)
[2024-04-23] MEDS: PIPERACILLN/TAZ 3.375GM/NS50ML 3.375 GM/50 ML BAG IVPB ×2 (05:04→12:29)
[2024-04-23 05:45] VITALS: BP 119/53; PULSE 78; RESP 16; TEMP 36.6; O2SAT 97
[2024-04-23 06:38] LABS: Hematocrit 34.7 % (37.0-47.0); Hemoglobin 11.4 g/dL (12.0-15.0); Mean Corpuscular HGB Conc 32.9 g/dl (32-36); Mean Corpuscular Hemoglobin 31.1 pg (26-34); Mean Corpuscular Volume 94.6 fl (80-100); Mean Platelet Volume 9.6 fl (7.4-10.4); Platelet Count Result 339 k/mm3 (150-375); Red Blood Count 3.67 M/mm3 (4.2-5.4); Red Cell Distribution Width 12.9 % (11.5-14.5); White Blood Count 8.7 K/mm3 (4.5-10.0)
[2024-04-23 06:51] LABS: Potassium 3.8 mmol/L (3.4-5.0)
[2024-04-23 07:06] LABS: Anion Gap 6 mmol/L (4-12); Blood Urea Nitrogen 6 mg/dL (7-17); CRP 6.1 mg/dL (<1.0); Calcium 8.1 mg/dL (8.4-10.2); Carbon Dioxide 24 mmol/L (22-30); Chloride 106 mmol/L (98-107); Estimated CRCL calculation 90 ml/min; Estimated Glomerular Filt Rate > 60; Glucose 101 mg/dL (65-110); Sodium 136 mmol/L (137-145)
[2024-04-23] MEDS: TAMOXIFEN CITRATE (*CHEMO) 10 MG TABLET 20 MG PO (08:39)
[2024-04-23] MEDS: busPIRone HCL 5 MG TABLET PO (08:39)
--- NOTE | 2024-04-23 10:01 | P.PNIM_ITS ---
Progress Note: A&P Assessment and Plan (1) Diverticulitis of intestine with perforation and abscess: Code(s): K57.80 - Diverticulitis of intestine, part unspecified, with perforation and abscess without bleeding Status: Acute Plan This is a pleasant 73-year-old female with a past medical history left breast cancer status post lumpectomy on 07/06/2023 status post breast radiation home, hypertension, hypercholesterolemia, nephrolithiasis, collagenous colitis who presents to [place] [facility] with complaint of abdominal pain nausea vomiting and watery brown diarrhea for 3 days. Perforated sigmoid diverticulitis She had an outpatient CT of abdomen pelvis performed showed perforated diverticulitis with abscess. CT abdomen pelvis on 04/19/2024 at 1:36 p.m. demonstrated perforated sigmoid diverticulitis with gas and fluid-filled collections the deep pelvis suspicious for developing abscess and reactive ileitis. Start Zosyn IV Consulted general surgeon Appreciate general surgical consultation, continue antibiotics treatment, the emergent surgical intervention Change Augmentin p.o. discharge patient home today per general surgery recommendation Sepsis Upon arrival to ED, patient had tachycardia tachypnea, White blood cell count of 14.4. Low-grade fever Meeting criteria of sepsis Continue fluid resuscitation Continue Zosyn Follow-up blood culture no growth Sepsis resolved advance diet per general surgeon, patient tolerated a solid diet well SCDs for DVT prophylaxis Patient wishes to be full code Subjective Date/time seen: 04/23/24 10:01 Interval history: I saw and exam patient today, patient has a mild dull pain right lower quadrant. Patient tolerated diet well. A patient feels better today. Patient denies nausea vomiting. Patient is afebrile, blood pressure is stable. Leukocytosis resolved, patient is afebrile, blood pressure stable, Exam Narrative: GENERAL: Pleasant, in no acute distress. Well-nourished. - EYES: EOMI. Anicteric. - HENT: Moist mucous membranes. - LUNGS: Clear to auscultation bilateral ly, no wheezing, rhonchi, or rales. - CARDIOVASCULAR: Regular rate and rhyth m. No murmur. No JVD. - ABDOMEN: Soft, lower abdominal tender and non-distended. No palpable masses. - EXTREMITIES: No edema. Peripheral puls es 2+. Non-tender. - NEUROLOGIC: No focal neurological defi cits. CN II-XII grossly intact. - PSYCHIATRIC: Awake, Alert and oriented x 3. Appropriate mood and affect. - SKIN: No rashes or lesions. Warm. - LYMPH: No cervical lymphadenopathy. Objective Data Vital Signs Vital Signs: Vital Signs - 24 hr 04/22/24 14:00 04/22/24 22:00 04/23/24 05:45 Temperature 98.1 F 98.2 F 97.8 F Pulse Rate 90 86 78 Respiratory Rate 20 18 16 Blood Pressure 131/55 L 136/72 119/53 L Pulse Oximetry 97 96 97 Oxygen Delivery 04/23/24 07:52 Temperature Pulse Rate Respiratory Rate Blood Pressure Pulse Oximetry Oxygen Delivery Room Air Intake/Output Intake/Output: Intake & Output 04/20/24 04/21/24 04/22/24 04/23/24 23:59 23:59 23:59 23:59 Intake Total 895 2635.0 2998.3 600 Balance 895 2635.0 2998.3 600 Meds/Results Medications: Active Medications Generic Name Dose Route Start Last Admin Trade Name Freq PRN Reason Stop Dose Admin Acetaminophen 650 mg 04/22/24 10:35 Acetaminophen 325 Mg Tablet PO Q6H PRN Mild Pain (1-3) or Fever Hydrocodone Bitart/Acetaminophen 1 tab 04/22/24 10:35 Hydrocodone/Acetaminophen (*Crx) 5-325 Mg Tablet PO Q4H PRN Pain Rated 4-6 Hydrocodone Bitart/Acetaminophen 1 tab 04/22/24 10:35 04/22/24 22:14 Hydrocodone/Acetaminophen (*Crx) 7.5-325 Mg Tablet PO 1 tab Q6H PRN Administration Pain Rated 7-10 Buspirone HCl 5 mg 04/19/24 23:56 04/23/24 08:39 Buspirone Hcl 5 Mg Tablet PO 5 mg TID PRN Administration Anxiety Piperacillin/Tazobactam/Dextrose 3.375 gm in 50 mls @ 100 mls/hr 04/20/24 10:40 04/23/24 05:34 Zosyn 3.375 Gm/Ns 50 Ml IVPB Infused Q6HR CINTIA Infusion Morphine Sulfate 2 mg 04/19/24 21:12 04/22/24 08:59 Morphine Sulfate (*Crx) 2 Mg/Ml Inj IV PUSH 2 mg Q4H PRN Administration Pain Rated 7-10 Ondansetron HCl 4 mg 04/19/24 21:16 Ondansetron Inj 4 Mg/2 Ml Vial IV PUSH Q4H PRN Nausea And Vomiting Tamoxifen Citrate 20 mg 04/20/24 09:00 04/23/24 08:39 Tamoxifen Citrate (*Chemo) 10 Mg Tablet PO 20 mg DAILY CINTIA Administration Trazodone HCl 25 mg 04/19/24 23:56 Trazodone Hcl 25 Mg Tablet PO HS PRN Sleep Labs Labs: Laboratory Results - last 24 hr 04/23/24 05:59 WBC 8.7 RBC 3.67 L Hgb 11.4 L Hct 34.7 L MCV 94.6 MCH 31.1 MCHC 32.9 RDW 12.9 Plt Count 339 MPV 9.6 Sodium 136 L Potassium 3.8 Chloride 106 Carbon Dioxide 24 Anion Gap 6 BUN 6 L D Creatinine 0.48 L Estim Creat Clear Calc 90 Estimated GFR > 60 Glucose 101 Calcium 8.1 L C-Reactive Protein 6.1 H
[2024-04-23] MEDS: ACETAMINOPHEN 325 MG TABLET 650 MG PO (11:27)
--- NOTE | 2024-04-23 13:02 | P.PNGS_ITS ---
Progress Note: A&P Assessment and Plan (1) Diverticulitis of intestine with perforation and abscess: Qualifiers: Diverticulitis bleeding: without bleeding Diverticulitis site: large intestine Qualified Code(s): K57.20 - Diverticulitis of large intestine with perforation and abscess without bleeding Code(s): K57.80 - Diverticulitis of intestine, part unspecified, with perforation and abscess without bleeding Status: Acute Assessment and Plan: * WBC normalized and symptoms nearly resolved * Advance to low fiber diet * OK to discharge home today. Will have patient follow up in office in 2 weeks and eventually get follow up CT in 4-6 weeks. Plan I have discussed the patient's case and plan of care with Dr. Brown. Subjective Subjective Date/Time Seen: 04/23/24 13:02 Interval history: Tolerating full liquids. Bowels moving. Pain nearly resolved. Feels like it can be controlled with just Tylenol. No fevers. Exam GI: Inspection: non-distended GI Palp: Yes Soft to palpation, Yes Tenderness to palpation present (GI) (minimal RLQ), No Guarding due to palpation present (GI) and No Rebound tenderness present Auscultation: normal bowel sounds Objective Data Vital Signs Vital Signs: Vital Signs - 24 hr 04/22/24 14:00 04/22/24 22:00 04/23/24 05:45 Temperature 98.1 F 98.2 F 97.8 F Pulse Rate 90 86 78 Respiratory Rate 20 18 16 Blood Pressure 131/55 L 136/72 119/53 L Pulse Oximetry 97 96 97 Oxygen Delivery 04/23/24 07:52 Temperature Pulse Rate Respiratory Rate Blood Pressure Pulse Oximetry Oxygen Delivery Room Air Intake/Output Intake/Output: Intake & Output 04/20/24 04/21/24 04/22/24 04/23/24 23:59 23:59 23:59 23:59 Intake Total 895 2635.0 2998.3 840 Balance 895 2635.0 2998.3 840 Meds/Results Medications: Active Medications Generic Name Dose Route Start Last Admin Trade Name Freq PRN Reason Stop Dose Admin Acetaminophen 650 mg 04/22/24 10:35 04/23/24 11:27 Acetaminophen 325 Mg Tablet PO 650 mg Q6H PRN Administration Mild Pain (1-3) or Fever Hydrocodone Bitart/Acetaminophen 1 tab 04/22/24 10:35 Hydrocodone/Acetaminophen (*Crx) 5-325 Mg Tablet PO Q4H PRN Pain Rated 4-6 Hydrocodone Bitart/Acetaminophen 1 tab 04/22/24 10:35 04/22/24 22:14 Hydrocodone/Acetaminophen (*Crx) 7.5-325 Mg Tablet PO 1 tab Q6H PRN Administration Pain Rated 7-10 Buspirone HCl 5 mg 04/19/24 23:56 04/23/24 08:39 Buspirone Hcl 5 Mg Tablet PO 5 mg TID PRN Administration Anxiety Piperacillin/Tazobactam/Dextrose 3.375 gm in 50 mls @ 100 mls/hr 04/20/24 10:40 04/23/24 12:29 Zosyn 3.375 Gm/Ns 50 Ml IVPB 100 mls/hr Q6HR CINTIA Administration Morphine Sulfate 2 mg 04/19/24 21:12 04/22/24 08:59 Morphine Sulfate (*Crx) 2 Mg/Ml Inj IV PUSH 2 mg Q4H PRN Administration Pain Rated 7-10 Ondansetron HCl 4 mg 04/19/24 21:16 Ondansetron Inj 4 Mg/2 Ml Vial IV PUSH Q4H PRN Nausea And Vomiting Tamoxifen Citrate 20 mg 04/20/24 09:00 04/23/24 08:39 Tamoxifen Citrate (*Chemo) 10 Mg Tablet PO 20 mg DAILY CINTIA Administration Trazodone HCl 25 mg 04/19/24 23:56 Trazodone Hcl 25 Mg Tablet PO HS PRN Sleep Labs Labs: Laboratory Results - last 24 hr 04/23/24 05:59 WBC 8.7 RBC 3.67 L Hgb 11.4 L Hct 34.7 L MCV 94.6 MCH 31.1 MCHC 32.9 RDW 12.9 Plt Count 339 MPV 9.6 Sodium 136 L Potassium 3.8 Chloride 106 Carbon Dioxide 24 Anion Gap 6 BUN 6 L D Creatinine 0.48 L Estim Creat Clear Calc 90 Estimated GFR > 60 Glucose 101 Calcium 8.1 L C-Reactive Protein 6.1 H
--- NOTE | 2024-04-23 15:05 | P.DS_ITS ---
DS: Admitting Diagnosis Discharge Date 04/23 Admitting Diagnosis Assessment and Plan (1) Diverticulitis of intestine with perforation and abscess: Code(s): K57.80 - Diverticulitis of intestine, part unspecified, with perforation and abscess without bleeding Status: Acute DS: Discharge Diagnosis Discharge Diagnosis (1) Diverticulitis of intestine with perforation and abscess: Qualifiers: Diverticulitis bleeding: without bleeding Diverticulitis site: large intestine Qualified Code(s): K57.20 - Diverticulitis of large intestine with perforation and abscess without bleeding Code(s): K57.80 - Diverticulitis of intestine, part unspecified, with perforation and abscess without bleeding Status: Acute DS: Summary Hospital Course Hospital Course: This is a pleasant 73-year-old female with a past medical history left breast cancer status post lumpectomy on 07/06/2023 status post breast radiation home, hypertension, hypercholesterolemia, nephrolithiasis, collagenous colitis who presents to [place] ER with complaint of abdominal pain nausea vomiting and watery brown diarrhea for 3 days. The following med issues have been addressed during hospitalization Perforated sigmoid diverticulitis She had an outpatient CT of abdomen pelvis performed showed perforated diverticulitis with abscess. CT abdomen pelvis on 04/19/2024 at 1:36 p.m. demonstrated perforated sigmoid diverticulitis with gas and fluid-filled collections the deep pelvis suspicious for developing abscess and reactive ileitis. Start Zosyn IV Consulted general surgeon Appreciate general surgical consultation, continue antibiotics treatment, the emergent surgical intervention Change Augmentin p.o. discharge patient home today per general surgery recommendation Sepsis Upon arrival to ED, patient had tachycardia tachypnea, White blood cell count of 14.4. Low-grade fever Meeting criteria of sepsis Continue fluid resuscitation Continue Zosyn Follow-up blood culture no growth Sepsis resolved advance diet per general surgeon, patient tolerated a solid diet well Patient will discharge home follow-up with general surgeon and primary care doctor at scheduled appointments Time Spent with Patient Time attestation: Total time spent providing and/or coordinating discharge services: Exam Narrative: GENERAL: Pleasant, in no acute distress. Well-nourished. - EYES: EOMI. Anicteric. - HENT: Moist mucous membranes. - LUNGS: Clear to auscultation bilateral ly, no wheezing, rhonchi, or rales. - CARDIOVASCULAR: Regular rate and rhyth m. No murmur. No JVD. - ABDOMEN: Soft, lower abdominal tender and non-distended. No palpable masses. - EXTREMITIES: No edema. Peripheral puls es 2+. Non-tender. - NEUROLOGIC: No focal neurological defi cits. CN II-XII grossly intact. - PSYCHIATRIC: Awake, Alert and oriented x 3. Appropriate mood and affect. - SKIN: No rashes or lesions. Warm. - LYMPH: No cervical lymphadenopathy. DS: Data Data Completed and Pending Labs on day of discharge: Labs from last 24 hours 04/23/24 05:59 WBC 8.7 RBC 3.67 L Hgb 11.4 L Hct 34.7 L MCV 94.6 MCH 31.1 MCHC 32.9 RDW 12.9 Plt Count 339 MPV 9.6 Sodium 136 L Potassium 3.8 Chloride 106 Carbon Dioxide 24 Anion Gap 6 BUN 6 L D Creatinine 0.48 L Estim Creat Clear Calc 90 Estimated GFR > 60 Glucose 101 Calcium 8.1 L C-Reactive Protein 6.1 H Preliminary micro results at discharge 04/19/24 15:15 Blood Culture - Preliminary Blood 04/19/24 15:34 Blood Culture - Preliminary Blood Discharge Plan Discharge Attending physician on discharge: Casper Guerrero Consulting providers: Narciso Brown Discharging Clinician: Casper Guerrero Anticipated Discharge Date/Time: 04/23/24 15:04 Patient Disposition: Home, Self-Care Activity: as tolerated Diet: low fiber Discharge Instructions: * Continue Low fiber diet for 2 weeks. Take MiraLax 1-2 times daily as needed for constipation. * Return to ED for severe pain, fevers, or other concerns related to recent admission * Complete 2 week course of oral antibiotics * After 2 weeks, slowly transition back to a high fiber diet Patient Instructions: Antibiotic Form, High Fiber Diet (DC), Low Fiber Diet (DC) Patient Language: Lao Stand Alone Forms: General Discharge Information Follow-up/Referrals: Homero,HA Ackerman [Primary Care Provider] - (Patient needs to see PCP in 1 week) Narciso Brown, [Physician] - 2 Weeks Discharge Medications: New metronidazole 500 mg tablet 500 mg PO Q8H 14 Days Qty: 42 0RF amoxicillin-pot clavulanate 875-125 mg tablet 1 tablet PO Q12H 14 Days Qty: 28 0RF Continued tamoxifen 20 mg Tablet 20 mg PO DAILY sulfasalazine 500 mg tablet 500 mg PO QAM Rx Instructions: Reduced to as need trazodone 50 mg tablet 25 mg PO HS PRN (Reason: Sleep) Rx Instructions: Does take 50 whole tab at night occasionally aspirin 81 mg Tablet,Delayed Release (Dr/Ec) 81 mg PO HS multivitamin Tablet 1 tablet PO DAILY Patient Comments: QAM alendronate 70 mg tablet 70 mg PO WEEKLY Patient Comments: TAKES ON THURSDAY calcium carbonate-vitamin D2 600 mg calcium- 200 unit Tablet 1 tablet PO QAM Patient Comments: EVERY OTHER DAY elderberry fruit 200 mg Capsule 200 mg PO QAM levocetirizine 5 mg Tablet 5 mg PO QAM cranberry 1 cap PO QAM buspirone 5 mg tablet 5 mg PO BID-TID PRN (Reason: Anxiety) Probiotic 3 billion cell capsule 3,000 mmu cells PO DAILY Rx Instructions: administer with a meal Date of admission: 04/19/24 16:54 Primary Care Provider: HomeroMeka Admitting Provider: Herbie Valerio Attending physician on admission: Herbie Valerio Condition: Stable
== END 2024-04-23 15:54 | disposition home or self-care (01) | DRG 872 ==
LOC: ANHED 15:56 → ANH3MEDSUR 17:26
PROVIDERS: General Practice; Nurse Practitioner Family; Radiology Diagnostic Radiology; Surgery; Admitting Provider Internal Medicine; Emergency Provider Emergency Medicine; PCP Physician Assistant; Visit Provider Hospitalist
DX: A41.9 Sepsis, unspecified organism (principal); K57.20 Diverticulitis of large intestine with perforation and abscess without bleeding; D05.12 Intraductal carcinoma in situ of left breast; K52.831 Collagenous colitis; M19.90 Unspecified osteoarthritis, unspecified site; I10 Essential (primary) hypertension; E78.00 Pure hypercholesterolemia, unspecified; N20.0 Calculus of kidney; Z79.82 Long term (current) use of aspirin
CPT/HCPCS: 36415; 80048; 80053; 83605; 83735; 85025; 85027; 85610; 86140; 87040; 96365; 96368; 96375; 99285; A9270; J0696; J1836; J2060; J2270; J2405; J2543; J3480; J7030; J7040; J7120

== ENCOUNTER 2024-06-03 09:02 | Outpatient (CLI) | payer MEDICARE, SELFPAY ==
[2024-06-03 09:19] LABS: Basophils Percent Auto 0.4 % (0.2-1.2); Eosinophils Percent Auto 0.7 % (0-4.4); Hematocrit 43.8 % (37.0-47.0); Hemoglobin 14.3 g/dL (12.0-15.0); Immature Granulocyte Absolute 0.01 K/mm3 (0.00-0.031); Immature Granulocyte Percent A 0.2 % (0-0.5); Lymphocytes Absolute Auto 1.24 K/mm3 (0.9-3.2); Lymphocytes Percent Auto 22.9 % (18.3-44.2); Mean Corpuscular HGB Conc 32.6 g/dl (32-36); Mean Platelet Volume 9.6 fl (7.4-10.4); Monocytes Absolute Auto 0.5 K/mm3 (0.1-0.6); Monocytes Percent Auto 8.7 % (2.6-8.5); Neutrophils Absolute Auto 3.6 K/mm3 (1.3-6.7); Neutrophils Percent Auto 67.1 % (45.5-73.1); Platelet Count Result 292 k/mm3 (150-375); Red Blood Count 4.61 M/mm3 (4.2-5.4); Red Cell Distribution Width 13.9 % (11.5-14.5); White Blood Count 5.4 K/mm3 (4.5-10.0)
[2024-06-03 09:22] LABS: Blood Urea Nitrogen 15 mg/dL (8-26); Carbon Dioxide 26 mmol/L (22-30); Chloride 104 mmol/L (98-109); Estimated Glomerular Filt Rate > 60; Glucose 105 mg/dL (70-105); Ionized Calcium (POC) 1.14 mmol/L (1.11-1.31); Potassium 4.7 mmol/L (3.5-4.9); Sodium 139 mmol/L (138-146)
--- OUTSIDE RECORDS SUMMARY | 2024-06-03 09:24 | XMS_ITS | Clinical Summary ---
Author Organization [facility] Administrative Offices Address [address] [place] [address] Care Team Providers Care Sql Server Dba Developer Name Role Phone Rehana Ceron MD Primary [...] mg) by mouth daily. 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 Anti-estrogen therapy: Tamoxifen 20 mg daily started September 21, 2023. Breast calcification, left 05/12/2023 Facet arthropathy, lumbar 12/13/2019 Radiculopathy, lumbar region 12/13/2019 Foot drop, right 11/15/2019 Allergic rhinitis 01/23/2014 Overview (01/21/2024): Date Onset: 01/23/2014 Encounters Date Type Department Care Team Description 05/25/2024 External Device Data STL ABSTRACTION Provider, Abstract 05/14/2024 External Device Data STL ABSTRACTION Provider, Abstract 05/13/2024 External Device Data STL ABSTRACTION Provider, Abstract 05/10/2024 External Device Data STL ABSTRACTION Provider, Abstract 04/26/2024 External Device Data STL ABSTRACTION Provider, Abstract 03/30/2024 External Device Data STL ABSTRACTION Provider, Abstract 03/29/2024 External Device Data STL ABSTRACTION Provider, Abstract 03/23/2024 External Device Data STL ABSTRACTION Provider, Abstract from Last 3 Months Family History Medical [...] on file Legal Sex Female 5:56 AM HEALTH OUTREACH WORKER Gender Identity Not on file Sexual Orientation Not on file Last Filed Vital Signs Vital Sign Reading Time Taken Comments Blood Pressure 167/92 02/01/2024 2:40 PM HEALTH OUTREACH WORKER Pulse 80 02/01/2024 2:40 PM HEALTH OUTREACH WORKER Temperature 36.5 C (97.7 F) 02/01/2024 2:40 PM HEALTH OUTREACH WORKER Respiratory Rate 16 02/01/2024 2:40 PM HEALTH OUTREACH WORKER Oxygen Saturation 95% 02/01/2024 2:40 PM HEALTH OUTREACH WORKER Inhaled Oxygen Concentration - - Weight 72.1 kg (159 lb) 02/01/2024 2:40 PM HEALTH OUTREACH WORKER Height 172.1 cm (5' 7.75 ) 01/21/2024 11:00 AM C Body Mass Index 24.35 01/21/2024 11:00 AM HEALTH OUTREACH WORKER Plan of Treatment Upcoming Encounters Date Type Department Care Team (Late st Contact Info) Description 06/03/2024 9:45 AM CDT Office Visit [facility] Oncology and Hematology - [place] [address] [place] [address] [facility] [address] [place] [address] Oskar Avalos MD [address] [facility] [address] [place] [address] Arrived 01/26/2025 10:30 AM HEALTH OUTREACH WORKER Appointment [facility] [address] [place] [address] [place] [address] [place] [address] 01/26/2025 11:30 AM HEALTH OUTREACH WORKER Office Visit [facility] Breast Surgery [address] [facility] [place] [address] [place] [address] [place] [address] [place] [address] Health Maintenance Due Date Last Done Comments FIT-DNA Q 3 years 1997 FIT/FOBT Q 1 year 1997 Flex Sig/CT Colonography Q 5 years 1997 OSTEOPOROSIS SCREENING 2017 DTAP/TDAP/TD VACCINES (2 - T d or Tdap) 09/13/2023 09/12/2013 COVID-19 Vaccine (2023-2 5 season) 2023 01/12/2023, 12/09/2021, 06/30/2021, Additional history exists [place] Preventative Visit/Annual Wellness Visit 03/09/2024 BREAST CANCER SCREENING 01/20/2025 01/21/20, 02/19/2022, 02/19/2022, Additional history exists RSV VACCINE (60+ or ) (1 - 1-dose 75+ series) 06/12/2027 COLORECTAL SCREENING 10/29/2027 10/28/2017 Colorectal Cancer Screening 10/29/2027 ZOSTER VACCINE Completed 02/13/2020, 12/14/2019 PNEUMOCOCCAL VACCINE 50+ YEARS Completed 1 , 07/26/2019, 12/07/2012 INFLUENZA VACCINE Completed 12/15/2023, , 12/09/2021, Additional history exists Medical Devices Implanted Type Area Cottage Attendant Device Identifier Shelf Expiration Date Model / Serial / Lot Clip Ligating [employer] Med Ti [id number] - Csc - [id number] Implanted:Qty: 1 on 07/06/2023 by Sabrina Scott MD at [facility] Clip Left: Breast TELEFLEX- WECK CLOSURE SYS 12/02/2026 [id number] / / [id number] Procedures Procedure Name Priority Date/Time Associated Diagnosis Comments MAMMO 3D MARTHA DIAGNOSTIC BILAT W OR WO CAD Routine 01/21/2024 10:39 AM HEALTH OUTREACH WORKER Ductal carcinoma in situ (DCIS) of left breast from Last 3 Months or Most Recently Relevant to Health Maintenance Results * MAMMO 3D MARTHA DIAGNOSTIC BILAT W OR WO CAD (01/21/2024 10:39 AM HEALTH OUTREACH WORKER) Anatomical Region Laterality Modality Breast Bilateral Mammography 01/21/2024 10:3 9 AM HEALTH OUTREACH WORKER Impressions 01/21/2024 12:25 PM HEALTH OUTREACH WORKER IMPRESSION: No mammographic evidence of malignancy. RECOMMENDATIONS: Bilateral diagnostic mammogram in one year. DICTATION LOCATION: Marnie Persaud [place] 01/21/2024 12:25 PM HEALTH OUTREACH WORKER EXAM: BILATERAL DIAGNOSTIC FULL-FIELD DIGITAL MAMMOGRAM WITH [...] in one year. DICTATION LOCATION: Marnie Persaud us Sabrina Scott MD MAMMO ORDERABLES Final Result from Last 3 Months or Most Recently Relevant to Health Maintenance Insurance AETNA PPO [facility] AETNA PPO MCR Care Teams Sql Server Dba Developer Relationship Specialty Start Date End Date eRhana Ceron MD [address] [place] [address] PCP - General Family Practice 07/22/23
--- OUTSIDE RECORDS SUMMARY | 2024-06-03 09:24 | XMS_ITS | Clinical Summary ---
Author Organization [facility] [email or web address] Address [address] [facility] [place] [address] Care Team Providers Care Communication Skills Instructor Name Role Phone Wes Parrish MD Primary Care Provider [phone] Rehana Ceron MD Unavailable [phone] Source Comments [facility],non-owned Affiliates and Associated Physician Practices is amultiple site organization consisting of ambulatory clinics and hospital sitesin [place], [place], [place] and [place]. This disclosure is being madepursuant to the Care Everywhere program and may not contain all information available regarding this patient. Last updated 17.[facility] Allergies Active Allergy Reactions Criticality Noted Date [...] to complete this topic MENINGOCOCCAL (Group B) VACC INE SHARED DECISION-MAKING Aged Out No longer eligibl e based on patient's age to complete this topic MENINGOCOCCAL GROUPS A/C/Y/W VACCINE Aged Out No longer eligible b ased on patient's age to complete this topic Care Teams Communication Skills Instructor Relationship Specialty Start Date End Date Wes Parrish MD [address] [place] [address] PCP - General 08/20/20 Rehana Ceron MD [address] [place] [address] Family Medicine 08/20/20
--- OUTSIDE RECORDS SUMMARY | 2024-06-03 09:24 | XMS_ITS | Data Portability ---
Author Organization [facility] Address [address] [place] [address] Care Team Providers Care Import/Export Analyst Name Role Phone DARIEN WICK Primary Care Provider RUBÉN Gordillo Radiation Oncologist [phone] WEI HAMILTON JR Medical Translator ALESSIO LUZ Place Change Roof Bolter Assessment Encounter Date Assessment Date Assessment LastModified by Organization Details LastModified Time 12/25/2023 12/25/2023 colonoscopy UTD still mammogram upcoming post breast cancer dx. eye and dental UTD seeing dr. jasso oncologist. [email or web address] Not available 12/25/2023 12:18:04 Plan of Treatment Reminders Order Date Submit Date Provider Last Modified By Organization Details Last Modified Time Details Appointments ANY 15 2024 09:00A M CARISSA Nieves Not available Not available Not available Lab lipid panel, serum 2023 024 [facility], [address], [place], [address], 01/19/2024 01:29:45 CBC w/ auto diff 2023 024 [facility], [address], [place], [address], 01/19/2024 01:29:45 hepatic function panel, serum 2023 024 [email or web address], [address], [place], [address], 02/01/2024 17:17:42 BMP, serum or plasma 2023 024 [place] [facility], [address], [facility] [address], [place], [address], 01/19/2024 01:29:45 TSH + free T4, serum 2023 024 [place] [facility], [address], [facility] [address], [place], [address], 01/19/2024 01:29:45 Referral None recorded. Procedures None recorded. Surgeries None recorded. Imaging CT, abdomen + pelvis, w/ contrast - Prior auth [id number] 04/19/24 --10/16/24 per Carlos Phillips @ [facility], info given to Vicky @ imaging [address] (Imaging), [address] [place] [address], [address], 04/20/2024 23:43:34 Medication Orders None recorded. Patient TargetsNo targets recorded. Patient InstructionsNo instructions recorded. Reason for Referral None Reported. Results Created Date Observation Date Name Description Value Unit Range Abnormal Flag Note LastModifiedBy Organization Detail LastModifiedTime 04/19/1904/19/2024 CT, abdom en + pelvi s, w/ contr ast No observ ation record ed. [address], [address], 04/20/2024 23:44:22 Result Notes None recorded. Problems Name Problem SNOMED Code Status Onset Date Resolution Date Notes Provider Name and Address Organization Details Recorded Time Body mass index 20-24 - normal 947939483 Active 2023 Kristen Rocha MA [facility], [place] - [facility] 11:41:44 Labile hypertensio n due to being in a clinical environment 534959107 Active 2023 CARISSA Nieves Attn: Riaz g,[address] [place], [address], [place] - [facility] 4 12:18:05 History of malignant neoplasm of breast 172576851 Active 2023 CARISSA Nieves Attn: Accountalvin g,[address] [facility], [place], [address], [place] [facility] 4 12:18:07 History of malignant neoplasm of skin 368048573 Active 2023 CARISSA Nieves Attn: Accountin g,[address] [facility], [place], [address], [place] [facility] 4 12:18:08 Right foot drop 9214541846853 06 Active 2023 CARISSA Nieves Attn: Accountalvin g,[address] [facility], [place], [address], [place] [facility] 4 12:18:09 History of lumbar fusion 9771432019215 6 Active 2023 CARISSA Nieves Attn: Accountin g,[address] [facility], [place], [address], [place] - [facility] 4 12:18:10 Bereavement 60720186 Active 2023 CARISSA Nieves Attn: Accountalvin g,[address] [facility], [place], [address], [place] - [facility] 4 17:14:51 Long-term drug therapy Active 2023 CARISSA Nieves Attn: Accountin g,[address] [facility], [place], [address], [place] - [facility] 4 17:15:02 Problem Notes None recorded. Procedures Surgical History Date Name Laterality Status Provider Name and Address Organization Details Recorded Time 06/08/19 24 lumpectomy of breast completed Kristen Rocha MA [place] - [facility] 12/25/2023 13:03:12 03/09/19 22 kidney stone analysis completed NONA [place] - [facility] 12/25/2023 13:02:59 Back Surgery completed Kristen Rocha MA [facility] 12/25/2023 11:34:47 Breast Surgery completed NONA [place] [facility] 12/25/2023 11:34:52 hysterectomy completed NONA [place] [facility] 12/25/2023 11:34:58 Imaging Results Imaging Date Name Status LastModified by [email or web address] Details LastModified Time 04/19/2024 CT, abdomen + pelvis, w/ contrast completed [facility] [address], [place], [address], 04/20/2024 23:44:22 Procedure Notes None recorded. Medical Equipment None Reported. Allergies Allergen ID Allergen Name Allergen Category Reaction Reaction Severity Criticality Documentation Date Start Date Code Code System Note Provider Name and Address Organization Details Recorded Time 557369 erythromy eamon estolate medicatio n Not available [...] Not Available Not Available No t Available metronidazo le 500 mg tablet Take 1 tablet twice a day by oral route for 14 days. active Not Available Not Available No [...] Not Available Not Available No t Available amoxicillin 875 mg-potassiu m clavulanate 125 mg tablet Take 2 tablets every day by oral route for 14 days. active Not Available Not Available No [...] Details Last Updated DateTime 4 18 /min 76243.5 9 g 24.7 kg/m2 170.18 cm 98 % 98 % 76 /min 150 mm[Hg] 88 mm[Hg] Kristen Rocha MA [facility] 4 11:43:56 Date Recorded Systolic blood pressure Diastolic blood pressure Provider Name and Address Organization Details Last Updated DateTime 12/25/2023 142 mm[Hg] 88 mm[Hg] CARISSA Nieves Attn: Accounting,[address] [place], [address], [facility] 12/25/2023 12:27:23 Date Recorded Body height Respiratory rate Oxygen saturation Oxygen saturation in Arterial blood by Pulse oximetry Heart rate Provider Name and Address Organization Details Last Updated DateTime 5 170.18 cm 18 /min 97 % 97 % 102 /min Kristen Rocha MA [facility] 5 12:44:49 Date Recorded Body temperature Systolic blood pressure Diastolic blood pressure Provider Name and Address Organization Details Last Updated DateTime 04/19/2024 98.4 [degF] 130 mm[Hg] 80 mm[Hg] CARISSA Nieves Attn: Accounting, [address] [place], [address], [facility] 04/19/2024 13:01:47 Date Recorded Body height Respiratory rate Oxygen saturation Oxygen saturation in Arterial blood by Pulse oximetry Heart rate Provider Name and Address Organization Details Last Updated DateTime 5 170.18 cm 18 /min 96 % 96 % 93 /min Kristen Rocha MA [place] - [facility] 09:17:45 Date Recorded Systolic blood pressure Diastolic blood pressure Provider Name and Address Organization Details Last Updated DateTime 05/05/2024 130 mm[Hg] 80 mm[Hg] CARISSA Nieves Attn: Accounting,[address] [facility], [place], [address], [place] - [facility] 05/05/2024 09:42:49 Social History Question Answer Notes LastModified by Organizat ion Details LastModified Time Tobacco Smoking Status Never Smoker Kristen Rocha MA null, [facility] 12/25/2023 11:35:57 Do You Have An Advance [...] Anxious, Or Unable To Sleep At Night)? [id number] Information not available 04/19/2024 Do You Use [...] Response Coronary Artery Disease N Other N Atrial Fibrillation N High Blood Pressure N Depression N COPD N Blood Clots N Anxiety Disorder Y Muscle, Joint, or Bone Problems N Acid Reflux (GERD) N Cancer Y Stroke N High Cholesterol N Liver Disease N Headaches N Kidney or Bladder Problems N Thyroid Problems Y GI Problems N Have you had a mammogram in the last yea r? N Skin Problems Y Anemia N Heart Attack ([place]) N Diabetes N Seizures/Epilepsy N Have you had a colonoscopy in the last 1 0 years? N Asthma N Allergies Y Have you had a PSA blood test in the las t year? N Hepatitis N Heart Failure N Osteoporosis N Gynecological [...] Influenza, high-dose, trivalent, PF 8 completed NONA [place], [place] - [facility] 12/25/2023 11:40:01 Influenza, high-dose, trivalent, PF 4 completed [place]A [place], [place] [facility] 12/25/2023 11:40:01 Hep B, adult 0 completed Kristen Aj [place]A [place], [place] [facility] 12/25/2023 11:40:01 Hep B, adult 9 completed Kristen Aj [place] [facility] 12/25/2023 11:40:01 Hep B, adult 9 completed Kristen Rocha [place] [facility] 12/25/2023 11:40:01 Influenza, split virus, quadrivalent, PF 7 completed Kristen Rocha [place] [facility] 12/25/2023 11:40:01 Past Encounters Encounter ID Performer Location Encounter Start Date Encounter Closed Date Diagnosis/Indication Diagnosis SNOMED-CT Code Diagnosis ICD10 Code Diagnosis Note [id number] CARISSA Nieves SI [employer] [facility] - [place] [address] [place] [address] 12/25/2023 11:07:06 12/25/2023 12:30:45 Body mass index 20-24 - normal 494304319 Z68.24 BMI is 24.7 History of malignant neoplasm of breast 247483454 Z85.3 History reviewed with the patient History of malignant neoplasm of skin 339353033 Z85.828 History reviewed with patient Right foot drop 76389012 01 63438 M21.371 Chronic and she does wear a brace in place to help History of lumbar fusion 5962315089 9106 Z98.1 History reviewed Labile hyp ertension due to being in a clinical environment 835331959 I15.8 Several blood pressure readings done today in the office and she does continue to run a little higher but endorses normal blood pressure readings at her home. She consistent ly has labile blood pressure changes in the clinic [facility] t. Her last reading was 142/88 today which certainly is stable Bereavement 54749998 Z63 .4 Patient lost her this year and is still in bereavemen t. She is taking some BuSpar 5 mg up to 3 times daily to help. Cholesterol screening 27 8447639 Z13.220 Fasting lipid panel is due Long-term drug therapy 462826100 Z79.891 Routine CBC, metabolic panel liver function and thyroid testing ordered Adult [facility] examination 074414209 Z00.01 New patient exam completed [id number] CARISSA Nieves [facility] [employer] [facility] [address] [place] [address] 04/19/2024 12:26:36 04/19/2024 15:35:44 Right lower quadrant pain 408656037 R10.31 decreased appetite, abdominal pain RLQ, episode of vomiting, feeling very poorly. Refer for CT scan abdomen and pelvis with contrast to rule out appendicit is or other etiology Diarrhea 76570689 R19.7 Question related to colitis or diverticul itis Vomiting 019566166 R11.1 0 Patient has had some episodes of vomiting as well. Currently stable she will need to keep her fluids up and electrolyt es balanced [id number] CARISSA Nieves [facility] [employer] [address] [place] [address] 05/05/2024 09:03:17 05/05/2024 10:07:50 Diverticulitis of colon with perforation 12589808 K57.20 Continue metronidaz ole and Augmentin course patient just has a couple of days left. She should continue probiotic treatment Antibiotic -associated diarrhea 000445324 T36.0X5A Patient will notify us if she has any nighttime stooling that develops. Continue probiotic Health Concerns Section Related Observation LastModified by Organization Detai ls LastModified Time None Recorded Concern Status LastModified by Organization Details LastModified Time None Recorded Advance Directives Directive Y: Payers Encounter Date Sequence Insurance Name Policy Number Policy Orr Covered Member ID Orr Member ID Guarantor Name 12/25/2023 1 [employer] (MEDICARE REPLACEMENT PPO) [id number] 1 Kathryn Espitia [id number] Kathryn Espitia 04/19/2024 1 [employer] (MEDICARE REPLACEMENT PPO) [id number] 1 Kathryn Espitia [id number] Kathryn Espitia 05/05/2024 1 [employer] (MEDICARE REPLACEMENT PPO) [id number] Kathryn Espitia [id number] Kathryn Espitia Notes Date Note Type Note [...] updated labs. CARISSA Nieves Attn: Accounting,[address] [place], [address], [facility] 01/10/2024 17:18:13 04/19/2024 text/html Abdominal PainReported bypatient.Location:R LQ Quality:pain;sharp;t holly Severity:moderate Duration:constant Onset/Timing:worse Context:food Modifying Factors:nothing gives relief Associated Symptoms:no fever; no chills; no blood in the urine; no heartburn; no shortness of breath;vomiting;diar padmini Other:denies possible CARISSA Nieves Attn: Accounting,[address] [place], [address], [facility] 05/07/2024 23:15:23 05/05/2024 text/html Patient was hospitalized for perforated diverticulitis with abscess found on stat CT scan. She was consulted with surgery did not have to have any type of surgical intervention but was treated with IV antibiotics and bowel rest. She is currently on metronidazole and Augmentin. She does have secondary diarrhea from the Augmentin currently. No night time stooling. No fevers or chills. No cough no shortness a breath no chest pain. No abdominal pain. Appetite is good. She is following a low fiber diet. CARISSA Nieves Attn: Accounting[address] [place], [address], [facility] 05/05/2024 21:23:05 OBGyn Episode No OBEpisode recorded.
[2024-06-03 10:39] LABS: Alanine Aminotransferase 16 U/L (6-35); Albumin Level 4.3 g/dL (3.5-5.1); Alkaline Phosphatase 59 U/L (38-126); Anion Gap 11 mmol/L (4-12); Aspartate Amino Transferase 23 U/L (14-36); Bilirubin,Total 0.5 mg/dL (0.2-1.3); Blood Urea Nitrogen 16 mg/dL (7-17); Calcium 9.4 mg/dL (8.4-10.2); Carbon Dioxide 25 mmol/L (22-30); Chloride 103 mmol/L (98-107); Estimated Glomerular Filt Rate > 60; Glucose 107 mg/dL (65-110); Potassium 4.9 mmol/L (3.4-5.0); Sodium 139 mmol/L (137-145)
== END 2024-06-03 09:03 | disposition home or self-care (01) ==
LOC: ANHLAB 09:03
PROVIDERS: Visit Provider Internal Medicine Hematology & Oncology
DX: D05.12 Intraductal carcinoma in situ of left breast (principal)
CPT/HCPCS: 36415; 80047; 80053; 85025

== ENCOUNTER 2024-06-09 09:26 | Outpatient (CLI) | payer MEDICARE, SELFPAY ==
--- NOTE | ~2024-06-09 | CT_ITS ---
CT of the Abdomen and Pelvis: Indication: Diverticulitis Technique: 2.5 mm axial scans were obtained through the abdomen and pelvis following intravenous adm inistration of 100 cc of Omnipaque 350. Dose reduction technique was used on this scan by utilizing a utomated exposure control and iterative reconstruction technique. The dose-length product (DLP) was 4 60.51 mGy-cm. COMPARISON: 04/19/2024 Findings: Scans through the lung bases demonstrate stable large calcified right lower lobe granuloma . The liver, spleen, pancreas, gallbladder, adrenals and kidneys are within normal limits. No evidence of aortic aneurysm. No lymphadenopathy. No bowel obstruction or bowel wall thickening. There is no evidence to suggest acute appendicitis. Images through the pelvis were performed. Urinary bladder unremarkable. Status post hysterectomy. 2.3 cm residual abscess in the left pelvis versus ovarian cyst. Impression: 2.3 cm residual abscess in the left pelvis versus left ovarian cyst. Otherwise, the larger abscess se en on prior exam is resolved, as are inflammatory changes and wall thickening of the sigmoid colon. No other significant abnormality. Reviewed, dictated and finalized at [facility]. Impression: 2.3 cm residual abscess in the left pelvis versus left ovarian cyst. Otherwise, the larger abscess seen on prior exam is resolved, as are inflammatory changes and wall thickening of the sigmoid colon. No other significant abnormality.
--- OUTSIDE RECORDS SUMMARY | 2024-06-09 09:51 | XMS_ITS | Clinical Summary ---
Author Organization [facility] [employer] Address [address] [place] [address] Care Team Providers Care Email Marketing Intern Name Role Phone Wes Parrish MD Primary Care Provider [phone] Rehana Ceron MD Unavailable [phone] Source Comments [facility],non-owned Affiliates and Associated Physician Practices is amultiple site organization consisting of ambulatory clinics and hospital sitesin [place], [place], [place]. This disclosure is being madepursuant to the Care Everywhere program and may not contain all information available regarding this patient. Last updated 17.[facility] Allergies Active Allergy Reactions Criticality Noted [...] age to complete this topic Care Teams Email Marketing Intern Relationship Specialty Start Date End Date Wes Parrish MD [address] [place] [address] PCP - General 08/20/20 Rehana Ceron MD [address] [place] [address] Family Medicine 08/20/20
--- OUTSIDE RECORDS SUMMARY | 2024-06-09 09:51 | XMS_ITS | Encounter Summary ---
Author Organization [facility] Address [address] [place] [address] Care Team Providers Care Medical Practitioners Name Role Phone Luis Parrish MD Primary Care Provider [phone] Encounter Details Date Type Department Care Team (Late st Contact Info) Description 07/12/2020 MyChart Message Enc [facility] Medical Group Multispecialty Care - [facility] [address] [facility], [address] [place] [address] Flex Smith MD [address] [place], [place] [phone] RE: Question Social History Tobacco Use Types [...] Assessment Author Status No 01/12/2020 2:53 PM ENGINE SETTER 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 Answer Date of Assessment Author Status No 01/12/2020 2:53 PM ENGINE SETTER Activ e * Do you have serious [...] on filedocumented in this encounter Care Teams Medical Practitioners Relationship Specialty Start Date End Date Luis Parrish MD [address] [place] [address] PCP - General PEDIATRICS 01/06/20 documented as of this encounter
--- OUTSIDE RECORDS SUMMARY | 2024-06-09 09:51 | XMS_ITS | Encounter Summary ---
Author Organization [facility] Address [address] [place] [address] Care Team Providers Care Mothers Helper Name Role Phone Luis Parrish MD Primary Care Provider [phone] Encounter Details Date Type Department Care Team (Late st Contact Info) Description 02/21/2020 All4Stafft Message Enc [facility] Medical Group Multispecialty Care - [facility] [address] [facility], [address] [place] [address] Merlene Lara APRN [address] [facility] [address] [place] [address] RE: Question Social History Tobacco Use Types [...] COVID-19? 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 Answer Date of Assessment Author Status No 01/12/2020 2:53 PM ICE SKATING COACH Activ e * Do you have serious [...] on filedocumented in this encounter Care Teams Mothers Helper Relationship Specialty Start Date End Date Luis Parrish MD [address] [place] [address] PCP - General PEDIATRICS 01/06/20 documented as of this encounter
--- OUTSIDE RECORDS SUMMARY | 2024-06-09 09:51 | XMS_ITS | Clinical Summary ---
Author Organization [facility] Address [address] [place] [address] Care Team Providers Care Welding Process Specialist Name Role Phone Luis Parrish MD Primary Care Provider + [phone] Allergies Active Allergy Reactions Criticality Noted Date Comments Erythromycin Unknown 01/06/2011 Large [employer] Medications multivitamin tablet Take 1 tablet by [...] 37.1 C (98.7 F) 01/19/2020 3:17 PM GERIATRIC SOCIAL WORKER Respiratory Rate 18 11/02/2020 1:16 PM CDT Oxygen Saturation 98% 11/02/2020 1:16 PM CDT Inhaled Oxygen Concentration - - Weight 70.3 kg (155 lb) 11/02/2020 1:16 PM CDT p er pt Height 174 cm (5' 8.5 ) 11/02/2020 1:16 PM CDT Body Mass Index 23.22 11/02/2020 1:16 PM CDT Plan of Treatment Health Maintenance Due Date Last Done Comments Annual Medicare Wellness Visit 2017 Dexa Scan (General) 2017 Pneumococcal Vaccine: 65+ Years (2 of 2 - PPSV23 or PCV20) 07/25/2020 07/26/2019 DTaP, Tdap and Td Vaccines (2 - Td or Tdap) 09/13/2023 09/12/2013 COVID-19 Vaccine (4 - season) 2023 01/08/2021, 05/15/2020, 04/12/2020 Influenza Adult (#1) 2023 12/04/2020, 11/22/2018, 11/29/2017, Additional history exists Mammogram Screening 02/20/2024 02/19/2022 RSV Immunization or 60+ Years (1 - 1-dose 75+ series) 06/12/2027 Colorectal Cancer Screening Colonoscopy (10 Years) 10/29/2027 [...] this topic Medical Devices Implanted Type Area Internet Designer Device Identifier Shelf Expiration Date Model / Serial / Lot Graft Infuse Bone Small - [id number] Implanted:Qty: 1 on 01/12/2020 by Flex Smith MD at [facility] N/A: Spine Lumbar [employer] 12/06/2021 [id number] / / [id number] Progenix Plus Spinalgraft Putty 2.5cc - [id number] Implanted:Qty: 1 on 01/12/2020 by Flex Smith MD at [facility] N/A: Spine Lumbar [employer] 07/04/2021 [id number] / / [id number] 2 Hole Plate Implanted:Qty: 1 on 01/12/2020 by Flex Smith MD at [facility] N/A: Spine Lumbar [employer] 10/26/2027 [id number] / / [id number] Screw Implanted:Qty: 2 on 01/12/2020 by Flex Smith MD at [facility] N/A: Spine Lumbar [employer] 11/09/2027 [id number] / / [id number] Interbody Implanted:Qty: 1 on 01/12/2020 by Flex Smith MD at [facility] N/A: Spine Lumbar [employer] 11/01/2026 [id number] / / [id number] 6.5 X 45 Screw Implanted:Qty: 2 on 01/12/2020 by Flex Smith MD at [facility] N/A: Spine Lumbar [employer] [id number] / / 4.75 X 40 [place] Implanted:Qty: 1 on 01/12/2020 by Flex Smith MD at [facility] N/A: Spine Lumbar [employer] [id number] / / Voyager Set Screws Implanted:Qty: 2 on 01/12/2020 by Flex Smith MD at [facility] N/A: Spine Lumbar [employer] [id number] / / Procedures Procedure Name Priority Date/Time Associated Diagnosis Comments MG SCREENING W MARTHA MICHAEL DIGI Routine 02/19/2022 9:30 AM GERIATRIC SOCIAL WORKER Encounter for screening mammogram for malignant neoplasm of breast COLONOSCOPY/EGD GENERIC (SCAN ORDER) 10/28/2017 HEPATITIS PANEL,ACUTE Routine 06/28/2014 8:40 AM CDT from Last 3 Months or Most Recently Relevant to Health Maintenance Results * MG SCREENING W MARTHA MICHAEL DIGI (02/19/2022 9:30 AM GERIATRIC SOCIAL WORKER) Anatomical Region Laterality Modality Breast Bilateral Computed Tomogra phy, Other 02/19/2022 10:1 5 AM GERIATRIC SOCIAL WORKER Narrative 02/19/2022 10:28 AM GERIATRIC SOCIAL WORKER IMAGING STUDIES: Bilateral screening mammograms with computer-aided [...] Interpreted By: Nba Hope, 02/19/2022 10:15 AM Rehana Bowser MD MAMMO Final Result * [...] CONVERSION Comment: THIS TEST WAS PERFORMED AT [facility] [id number] [place] [address] 06/28/2014 8:40 AM CDT 06/28/2014 8:40 AM CDT Narrative [facility] TO EPIC CONVERSION - 06/29/2014 12:16 PM CDT This lab was migrated from [facility] and may be missing annotations or result text, please check the Media tab for the most complete results. us Luis Parrish MD LABORATORY Final Result [facility] TO EPIC CONVERSION from Last 3 Months or Most Recently Relevant to Health Maintenance Insurance MED REPLACE [facility] [place] [address] Advance Directives Documents on File Type Date Recorded Patient Applications Development Consultant Expl anation Advance Directives and Living Will 01/14/2020 8:11 AM 08-08-2009 signed Alyssa Pitts, Planning Analyst for Health Care, MARIELLA Advance Directives and [...] 2:40 PM 01/13/2020 7:20 PM Care Teams Welding Process Specialist Relationship Specialty Start Date End Date Luis Parrish MD [address] [place] [address] PCP - General PEDIATRICS 01/06/20
--- OUTSIDE RECORDS SUMMARY | 2024-06-09 09:51 | XMS_ITS | Clinical Summary ---
Author Organization [facility] Administrative Offices Address [address] [place] [address] Care Team Providers Care Lay Brother Name Role Phone Rehana Ceron MD Primary [...] of diagnosis: 06/04/2023 Diagnosis: LEFT DCIS ER(+) NM(+) Surgeon: [facility] Surgery: 07/06/2023 left lump; 07/12/2023 left re-exicsion Medical Oncologist: Bailey Radiation Oncologist: Radiation: completed September 14, 2023. Anti-estrogen therapy: Tamoxifen 20 mg daily started September 21, 2023. Breast calcification, left 05/12/2023 Facet arthropathy, lumbar 12/13/2019 Radiculopathy, lumbar region 12/13/2019 Foot drop, right 11/15/2019 Allergic rhinitis 01/23/2014 Overview (01/21/2024): Date Onset: 01/23/2014 Encounters Date Type Department Care Team Description 06/03/2024 9:45 AM CDT Office Visit [facility] Oncology and [facility] [address] [place] [address] Oskar Avalos MD Breast neoplasm, Tis (DCIS), left (Primary Dx) 06/03/2024 Orders Only [facility] [address] [place] [address] Oskar Avalos MD 05/25/2024 External Device Data STL ABSTRACTION Provider, [...] Tobacco: Never Alcohol Use Standard Drinks/Week Comments Yes 0 [...] on file Legal Sex Female 5:56 AM CUSTOMER SERVICE RECEPTIONIST Gender Identity Not on file Sexual Orientation Not on file Last Filed Vital Signs Vital Sign Reading Time Taken Comments Blood Pressure 129/85 06/03/2024 9:40 AM CDT Pulse 90 06/03/2024 9:39 AM CDT Temperature 36.8 C (98.2 F) 06/03/2024 9:39 AM CDT Respiratory Rate 15 06/03/2024 9:39 AM CDT Oxygen Saturation 96% 06/03/2024 9:39 AM CDT Inhaled Oxygen Concentration - - Weight 72.6 kg (160 lb) 06/03/2024 9:39 AM CDT Height 172.1 cm (5' 7.75 ) 01/21/2024 11:[address] Body Mass Index 24.51 01/21/2024 11:00 AM CUSTOMER SERVICE RECEPTIONIST Plan of Treatment Upcoming Encounters Date Type Department Care Team (Late st Contact Info) Description 10/06/2024 11:00 AM CDT Office Visit [facility] Oncology and Hematology - [place] [address] [place] [address] Oskar Avalos MD [address] [facility] [address] [place] [address] 01/26/2025 10:30 AM CUSTOMER SERVICE RECEPTIONIST Appointment [facility] [place] [address] [place] [phone] [place] [address] [place] [address] 01/26/2025 11:30 AM CUSTOMER SERVICE RECEPTIONIST Office Visit [facility] Breast Surgery [place] [address] [place] [address] [place] [address] [facility] [address] [place] [address] Health Maintenance Due Date Last Done Comments FIT-DNA Q 3 years 1997 FIT/FOBT Q 1 year 1997 Flex Sig/CT Colonography Q 5 years 1997 OSTEOPOROSIS SCREENING 2017 DTAP/TDAP/TD VACCINES (2 - T d or Tdap) 09/13/2023 09/12/2013 COVID-19 Vaccine (2023-2 5 season) 2023 01/12/2023, 12/09/2021, 06/30/2021, Additional history exists [place] Ad[place]) Preventative Visit/Annual Wellness Visit 03/09/2024 BREAST CANCER SCREENING 01/20/2025 01/21/20, 02/19/2022, 02/19/2022, Additional history exists RSV VACCINE (60+ or ) (1 - 1-dose 75+ series) 06/12/2027 COLORECTAL SCREENING 10/29/2027 10/28/2017 Colorectal Cancer Screening 10/29/2027 ZOSTER VACCINE Completed 02/13/2020, 12/14/2019 PNEUMOCOCCAL VACCINE 50+ YEARS Completed 1 , 07/26/2019, 12/07/2012 INFLUENZA VACCINE Completed 12/15/2023, , 12/09/2021, Additional history exists Medical Devices Implanted Type Area Membership Sales Manager Device Identifier Shelf Expiration Date Model / Serial / Lot Clip Ligating Robotic Wares Med Ti [id number] - Csc - [id number] Implanted:Qty: 1 on 07/06/2023 by Sabrina Scott MD at [facility] Clip Left: Breast TELEFLEX- WECK CLOSURE SYS 12/02/2026 [id number] / / [id number] Procedures Procedure Name Priority Date/Time Associated Diagnosis Comments BASIC METABOLIC PANEL Routine 06/03/2024 1:35 PM CDT COMPREHENSIVE METABOLIC PANEL Routine 06/03/2024 1:25 PM CDT MAMMO 3D MARTHA DIAGNOSTIC BILAT W OR WO CAD Routine 01/21/2024 10:39 AM CUSTOMER SERVICE RECEPTIONIST Ductal carcinoma in situ (DCIS) of left breast from Last 3 Months or Most Recently Relevant to Health Maintenance Results * BASIC METABOLIC PANEL (06/03/2024 1:35 PM CDT) Blood us Oskar Avalos MD CHEMISTRY ORDERABLES Final Resu lt * COMPREHENSIVE METABOLIC PANEL (06/03/2024 1:25 PM CDT) Blood us Oskar Avalos MD CHEMISTRY ORDERABLES Final Resu lt * MAMMO 3D MARTHA DIAGNOSTIC BILAT W OR WO CAD (01/21/2024 10:39 AM CUSTOMER SERVICE RECEPTIONIST) Anatomical Region Laterality Modality Breast Bilateral Mammography 01/21/2024 10:3 9 AM CUSTOMER SERVICE RECEPTIONIST Impressions 01/21/2024 12:25 PM CUSTOMER SERVICE RECEPTIONIST IMPRESSION: No mammographic evidence of malignancy. RECOMMENDATIONS: Bilateral diagnostic mammogram in one year. DICTATION LOCATION: [facility] [place] 01/21/2024 12:25 PM CUSTOMER SERVICE RECEPTIONIST EXAM: BILATERAL DIAGNOSTIC FULL-FIELD DIGITAL MAMMOGRAM WITH [...] diagnostic mammogram in one year. DICTATION LOCATION: [facility] Sabrina Scott MD MAMMO ORDERABLES Final Result from Last 3 Months or Most Recently Relevant to Health Maintenance Insurance AETNA [facility] AETNA PPO MCR Care Teams Lay Brother Relationship Specialty Start Date End Date Rehana Ceron MD [address] [place] [address] PCP - General Family Practice 07/22/23
--- OUTSIDE RECORDS SUMMARY | 2024-06-09 09:51 | XMS_ITS | Data Portability ---
Author Organization [facility] Address [address] [place] [address] Care Team Providers Care Supervisor Lime Name Role Phone DARIEN WICK Primary Care Provider RUBÉN Gordillo Radiation Oncologist [phone] WEI HAMILTON JR Beauty Sales Consultant ALESSIO LUZ Audio Visual Collections Coordinator Assessment Encounter Date Assessment Date Assessment LastModified [...] [facility], [address], [place], [address], 01/19/2024 01:29:45 CBC w/ auto diff 2023 024 [facility], [address], [place], [address], 01/19/2024 01:29:45 hepatic function panel, serum 2023 024 [email or web address] [facility], [address], [place], [address], 02/01/2024 17:17:42 BMP, serum or plasma 2023 024 [place] [facility], [address], [facility] [address], [place], [address], 01/19/2024 01:29:45 TSH + free T4, serum 2023 024 [place] [facility], [address], [facility] [address], [place], [address], 01/19/2024 01:29:45 Referral None recorded. Procedures None recorded. Surgeries None recorded. Imaging CT, abdomen + pelvis, w/ contrast - Prior auth [id number] 04/19/24 --10/16/24 per Carlos Phillips @ [facility], info given to Vicky @ imaging [address] (Imaging), [address] [place] [address], [address], 04/20/2024 23:43:34 Medication Orders None recorded. Patient TargetsNo targets recorded. Patient InstructionsNo instructions recorded. Reason for Referral None Reported. Results Created Date Observation Date Name Description Value Unit Range Abnormal Flag Note LastModifiedBy Organization Detail LastModifiedTime 04/19/1904/19/2024 CT, abdom en + pelvi s, w/ contr ast No observ ation record ed. [address], [address], 04/20/2024 23:44:22 Result Notes None recorded. Problems Name Problem SNOMED Code Status Onset Date Resolution Date Notes Provider Name and Address Organization Details Recorded Time Body mass index 20-24 - normal 607385134 Active 2023 Kristen Rocha MA [facility], [place] - [facility] 11:41:44 Labile hypertensio n due to being in a clinical environment 190838053 Active 2023 CARISSA Nieves Attn: Riaz g,[address] [facility], [address], [place] - [facility] 4 12:18:05 History of malignant neoplasm of breast 758175253 Active 2023 CARISSA Nieves Attn: Accountalvin g,[address] [facility], [place], [address], [place] [facility] 4 12:18:07 History of malignant neoplasm of skin 381204442 Active 2023 CARISSA Nieves Attn: Accountin g,[address] [facility], [place], [address], [place] [facility] 4 12:18:08 Right foot drop 3704368998405 06 Active 2023 CARISSA Nieves Attn: Accountalvin g,[address] [facility], [place], [address], [place] [facility] 4 12:18:09 History of lumbar fusion 5433916179463 6 Active 2023 CARISSA Nieves Attn: Accountin g,[address] [facility], [place], [address], [place] - [facility] 4 12:18:10 Bereavement 81408248 Active 2023 CARISSA Nieves Attn: Accountalvin g,[address] [facility], [place], [address], [place] [facility] 4 17:14:51 Long-term drug therapy Active 2023 CARISSA Nieves Attn: Accountin g,[address] [facility], [place], [address], [place] - [facility] 4 17:15:02 Problem Notes None recorded. Procedures Surgical History Date Name Laterality Status Provider Name and Address Organization Details Recorded Time 06/08/19 24 lumpectomy of breast completed Kristen Rocha MA [place] - [facility] 12/25/2023 13:03:12 03/09/19 22 kidney stone analysis completed NONA Camilo - [facility] 12/25/2023 13:02:59 Back Surgery completed Kristen Rocha MA [facility] 12/25/2023 11:34:47 Breast Surgery completed NONA Camilo [facility] 12/25/2023 11:34:52 hysterectomy completed NONA Camilo [facility] 12/25/2023 11:34:58 Imaging Results Imaging Date Name Status [facility]Modified [facility] Details LastModified Time 04/19/2024 CT, abdomen + pelvis, w/ contrast completed [facility] [address], [place], [address], 04/20/2024 23:44:22 Procedure Notes None recorded. Medical Equipment None Reported. Allergies Allergen ID Allergen Name Allergen Category Reaction Reaction Severity Criticality Documentation Date Start Date Code Code System Note Provider Name and Address Organization Details Recorded Time 722778 erythromy eamon estolate medicatio n Not available [...] Details Last Updated DateTime 4 18 /min 97601.5 9 g 24.7 kg/m2 170.18 cm 98 % 98 % 76 /min 150 mm[Hg] 88 mm[Hg] Kristen Rocha MA [facility] 4 11:43:56 Date Recorded Systolic blood pressure Diastolic blood pressure Provider Name and Address Organization Details Last Updated DateTime 12/25/2023 142 mm[Hg] 88 mm[Hg] CARISSA Nieves Attn: Accounting,[address] [place], [address], [facility] 12/25/2023 12:27:23 Date Recorded Body height Respiratory rate Oxygen saturation Oxygen saturation in Arterial blood by Pulse oximetry Heart rate Provider Name and Address Organization Details Last Updated DateTime 5 170.18 cm 18 /min 97 % 97 % 102 /min Kristen Rocha MA [facility] 5 12:44:49 Date Recorded Body temperature Systolic blood pressure Diastolic blood pressure Provider Name and Address Organization Details Last Updated DateTime 04/19/2024 98.4 [degF] 130 mm[Hg] 80 mm[Hg] CARISSA Nieves Attn: Accounting, [address] [place], [address], [facility] 04/19/2024 13:01:47 Date Recorded Body height Respiratory rate Oxygen saturation Oxygen saturation in Arterial blood by Pulse oximetry Heart rate Provider Name and Address Organization Details Last Updated DateTime 5 170.18 cm 18 /min 96 % 96 % 93 /min Kristen Rocha MA [place] - [facility] 09:17:45 Date Recorded Systolic blood pressure Diastolic blood pressure Provider Name and Address Organization Details Last Updated DateTime 05/05/2024 130 mm[Hg] 80 mm[Hg] CARISSA Nieves Attn: Accounting,[address] [facility], [place], [address], [place] - [facility] 05/05/2024 09:42:49 Social History Question Answer Notes LastModified by Organizat ion Details LastModified Time Tobacco Smoking Status Never Smoker Kristen Rocha MA null, [facility] 12/25/2023 11:35:57 Do You Have An Advance [...] Anxious, Or Unable To Sleep At Night)? [id number] Information not available 04/19/2024 Do You Use [...] Skin Problems Y Anemia N Heart Attack (NE) N Anxiety Disorder Y Diabetes N Muscle, Joint, or Bone Problems N Seizures/Epilepsy N Have you had a colonoscopy in the last 1 0 years? N Acid Reflux (GERD) N Cancer Y Stroke N Asthma N Allergies Y Have you had a PSA blood test in the las t year? N High Cholesterol N Hepatitis [...] SNOMED-CT Code Diagnosis ICD10 Code Diagnosis Note [id number] CARISSA Nieves [facility] [place] [address] [place] [address] 12/25/2023 11:07:06 12/25/2023 12:30:45 Body mass index 20-24 - normal 873817624 Z68.24 BMI is 24.7 History of malignant neoplasm of breast 814792568 Z85.3 History reviewed with the patient History of malignant neoplasm of skin 287456204 Z85.828 History reviewed with patient Right foot drop 00428229 01 84622 M21.371 Chronic and she does wear a brace in place to help History of lumbar fusion 7792481470 9106 Z98.1 History reviewed Labile hyp ertension due to being in a clinical environment 693706722 I15.8 Several blood pressure readings done today in the office and she does continue to run a little higher but endorses normal blood pressure readings at her home. She consistent ly has labile blood pressure changes in the [facility] t. Her last reading was 142/88 today which certainly is stable Bereavement 75617343 Z63 .4 Patient lost her this year and is still in bereavemen t. She is taking some BuSpar 5 mg up to 3 times daily to help. Cholesterol screening 27 4157148 Z13.220 Fasting lipid panel is due Long-term drug therapy 542384086 Z79.891 Routine CBC, metabolic panel liver function and thyroid testing ordered Adult [facility] examination 646778243 Z00.01 New patient exam completed [id number] CARISSA Nieves [facility] [employer] [facility] [employer] [address] [place] [address] 04/19/2024 12:26:36 04/19/2024 15:35:44 Right lower quadrant pain 803905731 R10.31 decreased appetite, abdominal pain RLQ, episode of vomiting, feeling very poorly. Refer for CT scan abdomen and pelvis with contrast to rule out appendicit is or other etiology Diarrhea 38367386 R19.7 Question related to colitis or diverticul itis Vomiting 890396880 R11.1 0 Patient has had some episodes of vomiting as well. Currently stable she will need to keep her fluids up and electrolyt es balanced [id number] CARISSA Nieves [facility] [employer] [address] [place] [address] 05/05/2024 09:03:17 05/05/2024 10:07:50 Diverticulitis of colon with perforation 72988134 K57.20 Continue metronidaz ole and Augmentin course patient just has a couple of days left. She should continue probiotic treatment Antibiotic -associated diarrhea 086009394 T36.0X5A Patient will notify us if she [...] Name 12/25/2023 1 [employer] (MEDICARE REPLACEMENT PPO) [id number] 1 Kathryn Espitia [id number] Kathryn Espitia 04/19/2024 1 [employer] (MEDICARE REPLACEMENT PPO) [id number] 1 Kathryn Espitia [id number] Kathryn Espitia 05/05/2024 1 [employer] (MEDICARE REPLACEMENT PPO) [id number] 1 Kathryn Espitia [id number] Kathryn Espitia Notes Date Note Type Note [...] updated labs. CARISSA Nieves Attn: Accounting[address] [place], [address], [facility] 01/10/2024 17:18:13 04/19/2024 text/html Abdominal PainReported bypatient.Location:[facility] Quality:pain;sharp;t holly Severity:moderate Duration:constant Onset/Timing:worse Context:food Modifying Factors:nothing gives relief Associated Symptoms:no fever; no chills; no blood in the urine; no heartburn; no shortness of breath;vomiting;diar padmini Other:denies possible CARISSA Nieves Attn: Accounting[address] [place], [address], [facility] 05/07/2024 23:15:23 05/05/2024 text/html Patient was hospitalized [...] fiber diet. CARISSA Nieves Attn: Accounting[address] [place], [address], [facility] 05/05/2024 21:23:05 OBGyn Episode No OBEpisode recorded.
--- OUTSIDE RECORDS SUMMARY | 2024-06-09 09:51 | XMS_ITS | Encounter Summary ---
Author Organization [facility] Address [address] [place] [address] Care Team Providers Care Pilot Plant Supervisor Name Role Phone Luis Parrish MD Primary Care Provider + [phone] Encounter Details Date Type Department Care Team (Late st Contact Info) Description 08/20/2020 [employer] Message Enc [facility] Medical Group Multispecialty Care - [facility] [address] [facility], [address] [place] [address] Flex Smith MD [address] [place], [place] [phone] RE: Question Social History Tobacco Use Types [...] Assessment Author Status No 01/12/2020 2:53 PM SYSTEM TECHNOLOGIST Activ e * RETIRED Are you blind or do you have serious difficulty seeing, even when wearing glasses? Answer Date of Assessment Author Status No 01/12/2020 2:53 PM SYSTEM TECHNOLOGIST Activ e * Do you have serious [...] on filedocumented in this encounter Care Teams Pilot Plant Supervisor Relationship Specialty Start Date End Date Luis Parrish MD [address] [place] [address] PCP - General PEDIATRICS 01/06/20 documented as of this encounter
--- OUTSIDE RECORDS SUMMARY | 2024-06-09 09:51 | XMS_ITS | Encounter Summary ---
Author Organization [facility] Address [address] [place] [address] Care Team Providers Care Sealer Dry Cell Name Role Phone Luis Parrish MD Primary Care Provider + [phone] Encounter Details Date Type Department Care Team (Latest Contact Info) Description 01/20/[address] [facility] Medical Group Multispecialty Care - [facility] [address] [facility], [address] [place] [address] Merlene Lara APRN [address] [facility] [address] [place] [address] RE: Medication Questions Social History Tobacco Use [...] COVID-19? No / Unsure 01/19/2020 3:04 PM CARDIAC/VASCULAR SONOGRAPHER documented as of this encounter Functional Status * RETIRED Are you deaf or do you have serious difficulty hearing Answer Date of Assessment Author Status No 01/12/2020 2:53 PM CARDIAC/VASCULAR SONOGRAPHER Activ e * RETIRED Are you blind or do you have serious difficulty seeing, even when wearing glasses? Answer Date of Assessment Author Status No 01/12/2020 2:53 PM CARDIAC/VASCULAR SONOGRAPHER Activ e * Do you have serious [...] to contact insurance etc. Pt stated understanding. IAC/VASCULAR SONOGRAPHER documented in this encounter Plan of Treatment Not on file documented as of this encounter Visit Diagnoses Not on filedocumented in this encounter Care Teams Sealer Dry Cell Relationship Specialty Start Date End Date Luis Parrish MD [address] [place] [address] PCP - General PEDIATRICS 01/06/20 documented as of this encounter
== END 2024-06-09 09:27 | disposition home or self-care (01) ==
PROVIDERS: PCP Physician Assistant; Visit Provider Surgery
DX: K57.20 Diverticulitis of large intestine with perforation and abscess without bleeding (principal)
CPT/HCPCS: 74177; Q9967

== ENCOUNTER 2024-08-30 01:15 | Day surgery (SDC) | payer MEDICARE, SELFPAY ==
[2024-08-12 13:49] VITALS: BMI 25.1
[2024-08-30 06:20] VITALS: BP 146/59; PULSE 97; RESP 18; TEMP 36.4; O2SAT 99; BMI 24.0
[2024-08-30] MEDS: LACTATED RINGERS 1,000 ML 150 ML IV CONT (06:45)
--- NOTE | 2024-08-30 07:26 | P.PNAN_ITS ---
Anes - Initial Pre Proc Eval Procedure: Operation Date: 08/30/24 07:30 Proposed Procedures p Colonoscopy - Narciso Brown DO Date/Time: 08/30/24 07:26 Surgeon: Narciso Brown DO Pre Op Diagnosis: Diverticulitis with perforation and abscess Patient Data Age: 74 Gender: F Height: 1.73 m Weight: 71.6 kg Last Vital Signs Temp 36.4 C L 08/30/24 06:20 Pulse 97 08/30/24 06:20 Resp 18 08/30/24 06:20 BP 146/59 H 08/30/24 06:20 Pulse Ox 99 08/30/24 06:20 O2 Del Method Room Air 08/30/24 06:20 Allergies Allergy/AdvReac Type Severity Reaction Status Date / Time erythromycin base (From Allergy Intermediate Rash Verified 08/30/24 06:17 Ilosone) Home Medications ?Medication ?Instructions ?Recorded ?Confirmed ?Type aspirin 81 mg tablet,delayed 81 mg PO HS 08/15/20 08/12/24 History release trazodone 50 mg tablet 25 mg PO HS PRN Sleep 08/15/20 08/12/24 History alendronate 70 mg tablet 70 mg PO WEEKLY 03/05/21 08/12/24 History calcium carb-ergocalciferol (vit 1 tablet PO QAM 03/05/21 08/12/24 History D2) 600 mg calcium-200 unit tablet elderberry fruit 200 mg capsule 200 mg PO QAM 03/05/21 08/12/24 History levocetirizine 5 mg tablet 5 mg PO QAM 03/05/21 08/12/24 History multivitamin 1 tablet PO DAILY 03/05/21 08/12/24 History buspirone 5 mg tablet 5 mg PO BID-TID PRN Anxiety 11/06/21 08/30/24 History cranberry 1 cap PO QAM 11/06/21 08/12/24 History tamoxifen 20 mg tablet 20 mg PO DAILY 10/27/23 08/12/24 History lactobacillus combination no.4 3 3,000 mmu cells PO DAILY 04/19/24 08/12/24 History billion cell capsule (Probiotic) metronidazole 500 mg tablet 500 mg PO Q8H 14 days #42 tabs 04/23/24 05/21/24 Rx Patient hx anesthesia problems: none Family hx anesthesia problems: none Results Review: All pre-operative results and documents have been reviewed as part of the pre- operative evaluation. [facility] Past Medical History Medical History Collagenous colitis Intraductal carcinoma in situ of left breast Arthritis Anxiety Surgical History Surgical History History of spinal surgery History of lung biopsy Reportedly benign History of lumpectomy Left breast Social History Social History Smoking status: Never smoker Second hand tobacco smoke exposure: No Alcohol intake: current Drinks per week: 1 Substance use: never Substance use type: does not use Do You Feel Safe in your Home?: Yes Lack of Transportation: No Lack of Food: Never True Current Housing: I Have Housing Concerned About Future Housing: No Difficulty Paying Gas/Electric Bills: No Difficulty Paying for Meds: No Currently Unemployed: No Education: Bachelor's Degree Difficulty w/ Childcare or Family Care: No Living arrangements: alone Additional living arrangements comments: NIHARIKA Gender identity (if verbalized by the patient): Female Sexual Orientation (if Verbalized by the Patient): Straight or Heterosexual Spiritual care concerns: No Anes - Eval Final PreProcedure Day of Procedure 08/30/24 07:26 Patient weight: normal Heart: regular rate and rhythm Lungs: clear to auscultation Airway: Mallampati scale class II Neurological: alert and oriented Last oral intake: >/= 8 hours ASA classification: III Emergent: no Anesthetic plan: proceed Anesthesia type and monitoring: general GIVS and standard monitoring Results Review: All pre-operative results and documents have been reviewed as part of the pre- operative evaluation. Informed Consent: The patient's anesthetic plan and its attendant risks and benefits were discussed with the patient/family/POA. Questions were solicited and answers provided to the satisfaction of the patient/family/POA.
--- NOTE | 2024-08-30 07:29 | PM.IMHP ---
H&P: HPI History of Present Illness Date/Time: 08/30/24 07:29 Chief Complaint: diverticulitis Narrative: 74 yo woman presents for colonoscopy. She recently had diverticulitis and was hospitalized. Denies any recurrence since then. Review of Systems Review of Systems: All systems reviewed & are unremarkable except as noted in HPI and below Constitutional: Constitutional: Denies chills, Denies fever(s), Denies headache(s) and Denies weight loss Eyes: Eyes: Denies change in vision ENT: Denies dizziness, Denies headache(s), Denies neck mass and Denies throat swelling Cardiovascular: Cardiovascular: Denies chest pain, Denies lightheadedness and Denies dyspnea Respiratory: Respiratory: Denies cough, Denies dyspnea and Denies wheezing Gastrointestinal: Gastrointestinal: Denies abdominal pain, Denies change in bowel habits, Denies nausea and Denies vomiting Genitourinary: Genitourinary: Denies hematuria and Denies dysuria Musculoskeletal: Musculoskeletal: Reports as per HPI Integumentary/Breasts: Skin/Breast: Reports as per HPI Neurologic: Denies dizziness and Denies headache(s) Allergic/Immunologic: Allergic/Immunologic: Denies throat swelling and Denies wheezing PMFSH Past Medical History Medical History Collagenous colitis Intraductal carcinoma in situ of left breast Arthritis Anxiety Surgical History Surgical History History of spinal surgery History of lung biopsy Reportedly benign History of lumpectomy Left breast Social History Social History Smoking status: Never smoker Second hand tobacco smoke exposure: No Alcohol intake: current Drinks per week: 1 Substance use: never Substance use type: does not use Do You Feel Safe in your Home?: Yes Lack of Transportation: No Lack of Food: Never True Current Housing: I Have Housing Concerned About Future Housing: No Difficulty Paying Gas/Electric Bills: No Difficulty Paying for Meds: No Currently Unemployed: No Education: Bachelor's Degree Difficulty w/ Childcare or Family Care: No Living arrangements: alone Additional living arrangements comments: HUSB Gender identity (if verbalized by the patient): Female Sexual Orientation (if Verbalized by the Patient): Straight or Heterosexual Spiritual care concerns: No Meds Home Medications and Allergies Home Medications ?Medication ?Instructions ?Recorded ?Confirmed ?Type aspirin 81 mg tablet,delayed 81 mg PO HS 08/15/20 08/12/24 History release trazodone 50 mg tablet 25 mg PO HS PRN Sleep 08/15/20 08/12/24 History alendronate 70 mg tablet 70 mg PO WEEKLY 03/05/21 08/12/24 History calcium carb-ergocalciferol (vit 1 tablet PO QAM 03/05/21 08/12/24 History D2) 600 mg calcium-200 unit tablet elderberry fruit 200 mg capsule 200 mg PO QAM 03/05/21 08/12/24 History levocetirizine 5 mg tablet 5 mg PO QAM 03/05/21 08/12/24 History multivitamin 1 tablet PO DAILY 03/05/21 08/12/24 History buspirone 5 mg tablet 5 mg PO BID-TID PRN Anxiety 11/06/21 08/30/24 History cranberry 1 cap PO QAM 11/06/21 08/12/24 History tamoxifen 20 mg tablet 20 mg PO DAILY 10/27/23 08/12/24 History lactobacillus combination no.4 3 3,000 mmu cells PO DAILY 04/19/24 08/12/24 History billion cell capsule (Probiotic) metronidazole 500 mg tablet 500 mg PO Q8H 14 days #42 tabs 04/23/24 05/21/24 Rx Allergies Allergy/AdvReac Type Severity Reaction Status Date / Time erythromycin base (From Allergy Intermediate Rash Verified 08/30/24 06:17 Ilosone) Vital Signs Vital Signs - 24 hr 08/30/24 06:20 Temperature 97.5 F L Pulse Rate 97 Respiratory Rate 18 Blood Pressure 146/59 H Pulse Oximetry 99 Oxygen Delivery Room Air Exam Const: General: no acute distress and alert Orientation/consciousness: patient oriented x3 HENMT: Head: normocephalic and atraumatic Ears: hearing grossly normal bilaterally Face/Nose/Sinus: Normal nares present Mouth: Yes Normal oral and palatal mucosa present Eyes: Periorbital: periorbital findings normal Sclera: sclerae normal EOM: EOMs intact bilaterally Neck: Neck: normal visual inspection, no lymphadenopathy and trachea midline Chest: Chest palpation & inspection: normal inspection of the chest Resp: Effort & Inspection: normal respiratory effort Auscultation: clear to auscultation bilaterally Cardio: Jugular venous distension: no JVD Rate: regular rate Rhythm: regular rhythm Heart sounds: S1 normal heart sound present and S2 normal heart sound present Peripheral pulses: Peripheral pulses 2+ throughout GI: Inspection: normal to inspection GI Palp: Yes Soft to palpation, No Tenderness to palpation present (GI), No Guarding due to palpation present (GI) and No Rebound tenderness present Percussion: Yes normal to percussion Auscultation: normal bowel sounds : General: Yes no CVA tenderness Back/Spine/Pelvis: Back: no CVA tenderness Neuro: General: patient oriented x3, no focal motor deficits and CN's II-XI intact bilaterally Cognition (Neuro): normal cognition Speech: normal speech Motor exam (neuro): 5/5 motor strength present throughout Extrem: General: capillary refill normal and no clubbing, cyanosis or edema Assessment and Plan Assessment and plan (1) Diverticulitis of intestine with perforation and abscess: Qualifiers: Diverticulitis bleeding: without bleeding Diverticulitis site: large intestine Qualified Code(s): K57.20 - Diverticulitis of large intestine with perforation and abscess without bleeding Code(s): K57.80 - Diverticulitis of intestine, part unspecified, with perforation and abscess without bleeding Status: Acute Assessment and Plan: I have recommended colonoscopy. I have discussed the procedure, risks, benefits, and alternatives. Questions were answered. Patient is agreeable to proceed.
[2024-08-30 07:54] VITALS: BP 105/53; PULSE 73; RESP 23; O2SAT 100
[2024-08-30 08:04] VITALS: BP 116/52; PULSE 77; RESP 19; O2SAT 100
[2024-08-30 08:14] VITALS: BP 115/62; PULSE 76; RESP 21; O2SAT 100
== END 2024-08-30 08:24 | disposition home or self-care (01) ==
PROVIDERS: PCP Physician Assistant; Visit Provider Surgery
PROC: 0DJD8ZZ Inspection of Lower Intestinal Tract, Via Natural or Artificial Opening Endoscopic (ICD-10-PCS; CPT 45378; principal; 2024-08-30 07:30)
DX: Z09 Encounter for follow-up examination after completed treatment for conditions other than malignant neoplasm (principal); K57.30 Diverticulosis of large intestine without perforation or abscess without bleeding; F41.9 Anxiety disorder, unspecified; M19.90 Unspecified osteoarthritis, unspecified site; Z79.82 Long term (current) use of aspirin; Z79.83 Long term (current) use of bisphosphonates; Z79.810 Long term (current) use of selective estrogen receptor modulators (SERMs); Z98.890 Other specified postprocedural states; Z98.1 Arthrodesis status; Z90.12 Acquired absence of left breast and nipple; Z85.3 Personal history of malignant neoplasm of breast; Z87.19 Personal history of other diseases of the digestive system
CPT/HCPCS: 45378; J2003; J2704; J7120

== ENCOUNTER 2024-10-06 10:19 | Outpatient (CLI) | payer MEDICARE, SELFPAY ==
--- OUTSIDE RECORDS SUMMARY | 2024-10-06 10:30 | XMS_ITS | Clinical Summary ---
Author Organization [facility] NotesFirst Address [address] [place] [address] Care Team Providers Care Auditor/Quality Name Role Phone Wes Parrish MD Primary Care Provider [phone] Rehana Ceron MD Unavailable [phone] Source Comments [facility],non-owned Affiliates and Associated Physician Practices is amultiple site organization consisting of ambulatory clinics and hospital sitesin [place], [place], [place] and [place]. This disclosure is being madepursuant to the Care Everywhere program and may not contain all information available regarding this patient. Last updated 17.[facility] Allergies Active Allergy Reactions Criticality Noted Date Comments Erythromycin Unknown 12/04/2015 Medications * Be aware that medications may not be up to date on this document. Alwaysverify current medications with the patient. sulfaSALAzine (AZULFIDINE) 500 MG tablet Take 500 mg by mouth 4 times daily Active levocetirizine (XYZAL) 5 MG tablet Take 5 mg by mouth once daily Active Fish Oil Active Calcium Carb-Cholecalcif michelle (CALCIUM + D3 PO) Active aspirin (ASPIRIN) 81 MG tablet Take 81 mg by mouth once daily Active Probiotic Product (PROBIOTIC PO) Activ e benzonatate (TESSALON) 100 MG capsuleIndicatio ns:Acute frontal sinusitis, unspecified You can take 1-2 tablets PO TID PRN, max dose 6 tablets in 24 hours. 30 Cap 7 Active Additional Information Patient not taking.Reported on 12/15/2018 benzonatate (TESSALON) 200 MG capsule Take 1 capsule by mouth 3 times daily as needed for Cough 30 capsule 9 Active Family History Medical History Relation Name Comments COPD - Chronic Obstructive Pulmonary Disease Father Relation Name Status Comments Father Social History Tobacco Use Types Packs/Day Years Used Date Smoking Tobacco: Never Smokeless Tobacco: Never Alcohol Use Standard Drinks/Week Comments Not Asked 0 (1 standard drink = 0.6 oz pur e alcohol) Comments No Sex and Gender Information Value Date Recorded Sex Assigned at Not on file Legal Sex Female 11:24 AM WIRE TWISTER Gender Identity Not on file Sexual Orientation [...] 9:39 AM CDT Height 172.7 cm (5' 8) 12/15/2018 9:39 AM CDT Body Mass Index [...] VACCINE (1 - 2023-2 5 season) 2023 DEPRESSION SCREENING 03/09/2024 MEDICARE AWV CALENDAR YEAR 2024 INFLUENZA VACCINE (#1) 2024 Respiratory Syncytial Virus (RSV) Vaccine Pt: [...] on patient's age to complete this topic Insurance MEDICARE ADV AENA MEDICARE ADV AETNA MEDICARE ADV SELF PAY NO INSURANCE Member Subscriber Plan / Payer (Ef fective for All Dates) Name:Talon Woo Member ID:Not on file Relation to Subscriber:Not on file Name:TALON WOO Subscriber ID:Not on file Address: [address] [place], [place] [id number] Payer ID:Not on file Group ID:Not on file Type:Self Pay Address: [place], [place] AETNA MEDICARE ADV SELF PAY NO INSURANCE Member Subscriber Plan / Payer (Ef fective for All Dates) Name:Talon Woo Member ID:Not on file Relation to Subscriber:Not on file Name:TALON WOO Subscriber ID:Not on file Address: [address] [place] [id number] Payer ID:Not on file Group ID:Not on file Type:Self Pay Address: [place], [place] AETNA MEDICARE ADV SELF PAY NO INSURANCE Member Subscriber Plan / Payer (Ef fective for All Dates) Name:Talon Woo Member ID:Not on file Relation to Subscriber:Not on file Name:TALON WOO Subscriber ID:Not on file Address: [place] [address] Payer ID:Not on file Group ID:Not on file Type:Self Pay Address: [place], [place] Care Teams Auditor/Quality Relationship Specialty Start Date End Date Wes Parrish MD [address] [place] [id number] PCP - General 08/20/20 Rehana Ceron MD [address] [place] [address] Family Medicine 08/20/20
--- OUTSIDE RECORDS SUMMARY | 2024-10-06 10:30 | XMS_ITS | Encounter Summary ---
Author Organization [facility] Address [address] [place] [address] Care Team Providers Care Electric Deicer Inspector Name Role Phone Luis Parrish MD Primary Care Provider [phone] Encounter Details Date Type Department Care Team (Late st Contact Info) Description 07/12/2020 MyChart Message Enc [facility] Medical [facility] Multispecialty Care - [facility] [address], [address] [place] [id number] Flex Smith MD [address] [place], [place] [id number] RE: Question Social History Tobacco Use Types [...] Assessment Author Status No 01/12/2020 2:53 PM TELECOM ENGINEER Activ e * RETIRED Are you blind or do you have serious difficulty seeing, even when wearing glasses? Answer Date of Assessment Author Status No 01/12/2020 2:53 PM TELECOM ENGINEER Activ e * Do you have serious [...] on filedocumented in this encounter Care Teams Electric Deicer Inspector Relationship Specialty Start Date End Date Luis Parrish MD [address] [place] [id number] PCP - General PEDIATRICS 01/06/20 documented as of this encounter
--- OUTSIDE RECORDS SUMMARY | 2024-10-06 10:30 | XMS_ITS | Clinical Summary ---
Author Organization [facility] Address [address] [place] [address] Care Team Providers Care Supervisor Knitting Name Role Phone Luis Parrish MD Primary Care Provider [phone] Allergies Active Allergy Reactions Criticality Noted Date Comments Erythromycin Unknown 01/06/2011 Large Peecho Medications multivitamin tablet Take 1 tablet by [...] 37.1 C (98.7 F) 01/19/2020 3:17 PM CONSTRUCTION ESTIMATOR Respiratory Rate 18 11/02/2020 1:16 PM CDT Oxygen Saturation 98% 11/02/2020 1:16 PM CDT Inhaled Oxygen Concentration - - Weight 70.3 kg (155 lb) 11/02/2020 1:16 PM CDT p er pt Height 174 cm (5' 8.5) 11/02/2020 1:16 PM CDT Body Mass Index 23.22 11/02/2020 1:16 PM CDT Plan of Treatment Health Maintenance Due Date Last Done Comments Annual Medicare Wellness Visit 2017 Dexa Scan (General) 2017 Pneumococcal Vaccine: 50+ Years (2 of 2 - PPSV23) 07/25/2020 07/26/2019 DTaP, Tdap and Td Vaccines ( 2 - Td or Tdap) 09/13/2023 09/12/2013 COVID-19 Vaccine (4 - 2023-2 5 season) 2023 01/08/2021, 05/15/2020, 04/12/2020 Mammogram Screening 02/20/2024 02/19/2022 RSV Immunization or [...] 20 Months Aged Out No longer eligible b ased on patient's age to complete this topic Medical Devices Implanted Type Area Infusion Therapy Nurse Device Identifier Shelf Expiration Date Model / Serial / Lot Graft Infuse Bone Small - [id number] Implanted:Qty: 1 on 01/12/2020 by Flex Smith MD at [facility] N/A: Spine Lumbar [employer] 12/06/2021 [id number] / / [id number] Progenix Plus Spinalgraft Putty 2.5cc - [id number] Implanted:Qty: 1 on 01/12/2020 by Flex Smith MD at [facility] N/A: Spine Lumbar [employer] 07/04/2021 [id number] / / [id number] 2 Hole Plate Implanted:Qty: 1 on 01/12/2020 by Flex Smith MD at [facility] N/A: Spine Lumbar [employer] 10/26/2027 [id number] / / [id number] Screw Implanted:Qty: 2 on 01/12/2020 by Flex Smith MD at [facility] N/A: Spine Lumbar [employer] 11/09/2027 [id number] / / [id number] Interbody Implanted:Qty: 1 on 01/12/2020 by Flex Smith MD at [facility] N/A: Spine Lumbar [employer] 11/01/2026 [id number] / / [id number] 6.5 X 45 Screw Implanted:Qty: 2 on 01/12/2020 by Flex Smith MD at [facility] N/A: Spine Lumbar [employer] [id number] / / 4.75 X 40 [place] Implanted:Qty: 1 on 01/12/2020 by Flex Smith MD at [facility] N/A: Spine Lumbar [employer] [id number] / / Voyager Set Screws Implanted:Qty: 2 on 01/12/2020 by Flex Smith MD at [facility] N/A: Spine Lumbar [employer] [id number] / / Procedures Procedure Name Priority Date/Time Associated Diagnosis Comments MG SCREENING W MARTHA MICHAEL DIGI Routine 02/19/2022 9:30 AM CONSTRUCTION ESTIMATOR Encounter for screening mammogram for malignant neoplasm of breast COLONOSCOPY/EGD GENERIC (SCAN ORDER) 10/28/2017 HEPATITIS PANEL,ACUTE Routine 06/28/2014 8:40 AM CDT from Last 3 Months or Most Recently Relevant to Health Maintenance Results * MG SCREENING W MARTHA MICHAEL DIGI (02/19/2022 9:30 AM CONSTRUCTION ESTIMATOR) Anatomical Region Laterality Modality Breast Bilateral Computed Tomogra phy, Other 02/19/2022 10:1 5 AM CONSTRUCTION ESTIMATOR Narrative 02/19/2022 10:28 AM CONSTRUCTION ESTIMATOR IMAGING STUDIES: Bilateral screening mammograms with computer-aided [...] 0.02 <1.00 [facility] TO EPIC CONVERSION Comment:WILNER TERRAZAS DO ,MPH REPORT STATUS Not required [facility] TO EPIC CONVERSION Comment: THIS TEST WAS PERFORMED AT [facility] [address] [place] [id number] 06/28/2014 8:40 AM CDT 06/28/2014 8:40 AM CDT Narrative [facility] TO EP[facility] CONVERSION - 06/29/2014 12:16 PM CDT This lab was migrated from [facility] and may be missing annotations or result text, please check the Media tab for the most complete results. us Luis Parrish MD LABORATORY Final Result [facility] TO EP[facility] CONVERSION from Last 3 Months or Most Recently Relevant to Health Maintenance Insurance MED [facility] MEDICARE Advance Directives Documents on File Type Date Recorded Patient Barrel Line Operator Expl anation Advance Directives and Living Will 01/14/2020 8:11 AM 08-08-2009 signed Alyssa Pitts, Systems Security Consultant for Health Care, [facility] Advance Directives and Living Will 06/23/2014 12:00 [...] 2:40 PM 01/13/2020 7:20 PM Care Teams Supervisor Knitting Relationship Specialty Start Date End Date Luis Parrish MD [address] [place] [address] PCP - General PEDIATRICS 01/06/20
--- OUTSIDE RECORDS SUMMARY | 2024-10-06 10:30 | XMS_ITS | Clinical Summary ---
Author Organization [facility] Administrative Offices Address [address] [place] [address] Care Team Providers Care Brazing Furnace Operator Name Role Phone Unavailable Primary Care Provider Unavailabl e Allergies Active Allergy Reactions Criticality Noted Date [...] of diagnosis: 06/04/2023 Diagnosis: LEFT DCIS ER(+) [place](+) Surgeon: Tyler Surgery: 07/06/2023 left lump; 07/12/2023 left re-exicsion Medical Oncologist: Bailey Radiation Oncologist: Radiation: completed September 14, 2023. Anti-estrogen therapy: Tamoxifen 20 mg daily started September 21, 2023. Breast calcification, left 05/12/2023 Facet arthropathy, lumbar 12/13/2019 Radiculopathy, lumbar region 12/13/2019 Foot drop, right 11/15/2019 Allergic rhinitis 01/23/2014 Overview (01/21/2024): Date Onset: 01/23/2014 Encounters Date Type Department Care Team Description 09/21/2024 External Device Data STL ABSTRACTION Provider, Abstract 09/21/2024 External Device Data STL ABSTRACTION Provider, Abstract 09/21/2024 External Device Data STL ABSTRACTION Provider, Abstract 09/20/2024 External Device Data STL ABSTRACTION Provider, Abstract 08/30/2024 External Device Data STL ABSTRACTION Provider, Abstract 08/24/2024 External Device Data STL ABSTRACTION Provider, Abstract 08/23/2024 External Device Data STL ABSTRACTION Provider, Abstract 07/27/2024 External Device Data STL ABSTRACTION Provider, Abstract 07/26/2024 External Device Data STL ABSTRACTION Provider, Abstract from Last 3 Months Family History Medical History Relation Name Comments Breast Cancer Neg Hx Ovarian Cancer Neg Hx Social History Tobacco Use Types Packs/Day Years Used Date Smoking Tobacco: Never Smokeless Tobacco: Never Alcohol Use Standard Drinks/Week Comments Yes 0 (1 standard drink = 0.6 oz pur e alcohol) 0-2 per month Comments No Sex and Gender Information Value Date Recorded Sex Assigned at Not on file Legal Sex Female 5:56 AM SUBWAY TRAIN OPERATOR Gender Identity Not on file Sexual Orientation [...] 9:39 AM CDT Height 172.1 cm (5' 7.75) 01/21/2024 11:00 AM Darrell SANTOS Body Mass Index 24.51 01/21/2024 11:00 AM SUBWAY TRAIN OPERATOR Plan of Treatment Upcoming Encounters Date Type Department Care Team (Late st Contact Info) Description 10/06/2024 11:00 AM CDT Office Visit [facility] Oncology and Hematology - Jairo [address] [facility] [address] [place] [address] Oskar Avalos MD [address] [facility] [address] [place] [address] 01/26/2025 10:30 AM SUBWAY TRAIN OPERATOR Appointment [facility] Rakesh Persaud [address] [place] [phone] [place] [address] [facility] [address] [place] [address] 01/26/2025 11:30 AM SUBWAY TRAIN OPERATOR Office Visit [facility] Breast Surgery Rakesh Persaud [address] [facility] [address] [place] [address] [place] [address] [facility] [address] [place] [address] Health Maintenance Due Date Last Done Comments FIT-DNA Q 3 years 1997 FIT/FOBT Q 1 year 1997 Flex Sig/CT Colonography Q 5 years 1997 OSTEOPOROSIS SCREENING 2017 DTAP/TDAP/TD VACCINES (2 - T d or Tdap) 09/13/2023 09/12/2013 COVID-19 Vaccine (2023-2 5 season) 2023 01/12/2023, 12/09/2021, 06/30/2021, Additional history exists Medicare Advantage ([place]) Preventative Visit/Annual Wellness Visit 03/09/2024 INFLUENZA VACCINE (#1) 2024 4, 12/14/2022, 12/09/2021, Additional history exists BREAST CANCER SCREENING 01/20/2025 01/21/20 24, 02/19/2022, 02/19/2022, Additional history exists RSV VACCINE (60+ or ) (1 - 1-dose 75+ series) 06/12/2027 COLORECTAL SCREENING 10/29/2027 10/28/2017 Colorectal Cancer Screening 10/29/2027 ZOSTER VACCINE Completed 02/13/2020, 12/14/2019 PNEUMOCOCCAL VACCINE 50+ YEARS Completed 1 , 07/26/2019, 12/07/2012 Medical Devices Implanted Type Area Junior Paralegal Device Identifier Shelf Expiration Date Model / Serial / Lot Clip Ligating InterResolve Ti [id number] - Csc - [id number] Implanted:Qty: 1 on 07/06/2023 by Sabrina Scott MD at [facility] [employer] Clip Left: Breast TELEFLEX- WECK CLOSURE SYS 12/02/2026 [id number] / / [id number] Procedures Procedure Name Priority Date/Time Associated Diagnosis Comments MAMMO 3D MARTHA DIAGNOSTIC BILAT W OR WO CAD Routine 01/21/2024 10:39 AM SUBWAY TRAIN OPERATOR Ductal carcinoma in situ (DCIS) of left breast from Last 3 Months or Most Recently Relevant to Health Maintenance Results * MAMMO 3D MARTHA DIAGNOSTIC BILAT W OR WO CAD (01/21/2024 10:39 AM SUBWAY TRAIN OPERATOR) Anatomical Region Laterality Modality Breast Bilateral Mammography 01/21/2024 10:3 9 AM SUBWAY TRAIN OPERATOR Impressions 01/21/2024 12:25 PM SUBWAY TRAIN OPERATOR IMPRESSION: No mammographic evidence of malignancy. RECOMMENDATIONS: Bilateral diagnostic mammogram in one year. [facility] Narrative 01/21/2024 12:25 PM SUBWAY TRAIN OPERATOR EXAM: BILATERAL DIAGNOSTIC FULL-FIELD DIGITAL MAMMOGRAM WITH [...] diagnostic mammogram in one year. DICTATION LOCATION: [facility] Sabrina Scott MD MAMMO ORDERABLES Final Result from Last 3 Months or Most Recently Relevant to Health Maintenance Insurance AETNA PPO MCR AETNA [facility]
--- OUTSIDE RECORDS SUMMARY | 2024-10-06 10:30 | XMS_ITS | Encounter Summary ---
Author Organization [facility] Address [address] [place] [address] Care Team Providers Care Single Ending Machine Operator Name Role Phone Luis Parrish MD Primary Care Provider + [phone] Encounter Details Date Type Department Care Team (Latest Contact Info) Description 01/20/2020 [employer] Message Enc [facility] Medical Group Multispecialty Care - [facility] [address], [address] [place] [address] Merlene Lara APRN [address] [facility] [address] [place] [address] RE: Medication Questions Social History Tobacco Use [...] COVID-19? No / Unsure 01/19/2020 3:04 PM BARREL RIB MATTING MACHINE OPERATOR documented as of this encounter Functional Status * RETIRED Are you deaf or do you have serious difficulty hearing Answer Date of Assessment Author Status No 01/12/2020 2:53 PM BARREL RIB MATTING MACHINE OPERATOR Activ e * RETIRED Are you blind or do you have serious difficulty seeing, even when wearing glasses? Answer Date of Assessment Author Status No 01/12/2020 2:53 PM BARREL RIB MATTING MACHINE OPERATOR Activ e * Do you have serious [...] to contact insurance etc. Pt stated understanding. EL RIB MATTING MACHINE OPERATOR documented in this encounter Plan of Treatment Not on file documented as of this encounter Visit Diagnoses Not on filedocumented in this encounter Care Teams Single Ending Machine Operator Relationship Specialty Start Date End Date Luis Parrish MD [address] [place] [address] PCP - General PEDIATRICS 01/06/20 documented as of this encounter
--- OUTSIDE RECORDS SUMMARY | 2024-10-06 10:30 | XMS_ITS | Encounter Summary ---
Author Organization [facility] Address [address] [place] [address] Care Team Providers Care Paramedic Instructor Name Role Phone Luis Parrish MD Primary Care Provider + [phone] Encounter Details Date Type Department Care Team (Late st Contact Info) Description 08/20/2020 [employer] Message Enc [facility] Medical Group Multispecialty Care - [facility] [address] [facility], [address] [place] [address] Flex Smith MD [address] [place], [place] [phone] RE: Question Social History Tobacco Use Types [...] Assessment Author Status No 01/12/2020 2:53 PM MORNING SHOW NEWSCAST PRODUCER Activ e * RETIRED Are you blind or do you have serious difficulty seeing, even when wearing glasses? Answer Date of Assessment Author Status No 01/12/2020 2:53 PM MORNING SHOW NEWSCAST PRODUCER Activ e * Do you have serious [...] on filedocumented in this encounter Care Teams Paramedic Instructor Relationship Specialty Start Date End Date Luis Parrish MD [address] [place] [address] PCP - General PEDIATRICS 01/06/20 documented as of this encounter
--- OUTSIDE RECORDS SUMMARY | 2024-10-06 10:30 | XMS_ITS | Encounter Summary ---
Author Organization [facility] System Address [address] [place] [address] Care Team Providers Care Straw Hat Brim Cutter Operator Name Role Phone Luis Parrish MD Primary Care Provider + [phone] Encounter Details Date Type Department Care Team (Late st Contact Info) Description 02/21/2020 [employer] Message Enc [facility] Medical Group Multispecialty Care - [facility] [address] [facility], [address] [place] [address] Merlene Lara, ROCKY [address] [facility] [address] [place] [address] RE: Question Social History Tobacco Use Types [...] COVID-19? No / Unsure 02/16/2020 11:36 AM JOINT CREASER documented as of this encounter Functional Status * RETIRED Are you deaf or do you have serious difficulty hearing Answer Date of Assessment Author Status No 01/12/2020 2:53 PM JOINT CREASER Activ e * RETIRED Are you blind or do you have serious difficulty seeing, even when wearing glasses? Answer Date of Assessment Author Status No 01/12/2020 2:53 PM JOINT CREASER Activ e * Do you have serious difficulty walking or climbing stairs? Answer Date of Assessment Author Status No 01/12/2020 2:53 PM Jennifer Zambrano RN Active * Do you have difficulty dressing or bathing? Answer Date of Assessment Author Status No 01/12/2020 2:53 PM Jennifer Zmabrano RN Active * Because of a physical, [...] on filedocumented in this encounter Care Teams Straw Hat Brim Cutter Operator Relationship Specialty Start Date End Date Luis Parrish MD [address] [place] [address] PCP - General PEDIATRICS 01/06/20 documented as of this encounter
[2024-10-06 10:31] LABS: Hematocrit 43.6 % (37.0-47.0); Hemoglobin 14.6 g/dL (12.0-15.0); Immature Granulocyte Percent A 0.2 % (0-0.5); Lymphocytes Absolute Auto 1.14 K/mm3 (0.9-3.2); Mean Corpuscular HGB Conc 33.5 g/dl (32-36); Mean Corpuscular Hemoglobin 30.9 pg (26-34); Mean Corpuscular Volume 92.2 fl (80-100); Nucleated Red Blood Cells Absolute Auto 0.000 K/mm3 (0.0-0.012); Nucleated Red Blood Cells Perc 0.0 % (0.0-0.2); Platelet Count Result 324 k/mm3 (150-375); Red Blood Count 4.73 M/mm3 (4.2-5.4); White Blood Count 5.3 K/mm3 (4.5-10.0)
[2024-10-06 10:34] LABS: Blood Urea Nitrogen 16 mg/dL (8-26); Carbon Dioxide 22 mmol/L (22-30); Chloride 104 mmol/L (98-109); Estimated Glomerular Filt Rate > 60; Glucose 107 mg/dL (70-105); Ionized Calcium (POC) 1.19 mmol/L (1.11-1.31); Potassium 4.1 mmol/L (3.5-4.9); Sodium 138 mmol/L (138-146)
[2024-10-06 12:05] LABS: Alanine Aminotransferase 17 U/L (6-35); Albumin Level 3.9 g/dL (3.5-5.1); Alkaline Phosphatase 62 U/L (38-126); Anion Gap 8 mmol/L (4-12); Aspartate Amino Transferase 28 U/L (14-36); Bilirubin,Total 0.5 mg/dL (0.2-1.3); Blood Urea Nitrogen 15 mg/dL (7-17); Calcium 9.0 mg/dL (8.4-10.2); Carbon Dioxide 23 mmol/L (22-30); Chloride 106 mmol/L (98-107); Estimated Glomerular Filt Rate > 60; Glucose 109 mg/dL (65-110); Potassium 4.1 mmol/L (3.4-5.0); Sodium 137 mmol/L (137-145); Total Protein 7.0 g/dL (6.3-8.2)
== END 2024-10-06 10:20 | disposition home or self-care (01) ==
PROVIDERS: PCP Physician Assistant; Visit Provider Internal Medicine Hematology & Oncology
DX: D05.12 Intraductal carcinoma in situ of left breast (principal)
CPT/HCPCS: 36415; 80047; 80053; 85025

== ENCOUNTER 2024-12-29 09:48 | Outpatient (CLI) | payer MEDICARE, SELFPAY ==
--- OUTSIDE RECORDS SUMMARY | 2024-12-29 10:30 | XMS_ITS | Encounter Summary ---
Author Organization [facility] Address [address] [place] [address] Care Team Providers Care Electrician Telephone Name Role Phone Unavailable Primary Care Provider Unavailabl e Encounter Details Date Type Department Care Team (Late st Contact Info) Description 12/28/2024 External Device Data STL ABSTRACTION Provider, Abstract NO ADDRESS ON FILE Social History Tobacco Use Types Packs/Day Years [...] on file Legal Sex Female 5:56 AM JAILKEEPER Gender Identity Not on file Sexual Orientation Not on file documented as of this encounter Plan of Treatment Upcoming Encounters Date Type Department Care Team (Late st Contact Info) Description 01/26/2025 10:30 AM JAILKEEPER Appointment [facility] [address] [place] [phone] [place] [address] [facility] [address] [place] [address] 01/26/2025 11:30 AM JAILKEEPER Office Visit [facility] Breast Surgery [place] [address] [place] [address] [place] [address] [facility] [address] [place] [address] 02/24/2025 11:30 AM JAILKEEPER Office Visit [facility] Oncology and Hematology - Jairo [address] [facility] [address] [place] [address] Oskar Avalos MD [address] [facility] [address] [place] [address] documented as of this encounter Visit Diagnoses Not on filedocumented in this encounter
--- OUTSIDE RECORDS SUMMARY | 2024-12-29 10:30 | XMS_ITS | Encounter Summary ---
Author Organization [facility] Address [address] [place] [address] Care Team Providers Care Relay Operator Name Role Phone Luis Parrish MD Primary Care Provider + [phone] Encounter Details Date Type Department Care Team (Latest Contact Info) Description 01/20/2020 [employer] Message Enc [facility] Medical Group Multispecialty Care - [facility] [address] [facility], [address] [place] [address] Merlene Lara APRN 3 [facility] [address] [place] [address] RE: Medication Questions Social History Tobacco Use [...] COVID-19? No / Unsure 01/19/2020 3:04 PM CURATOR OF COLLECTIONS documented as of this encounter Functional Status * RETIRED Are you deaf or do you have serious difficulty hearing Answer Date of Assessment Author Status No 01/12/2020 2:53 PM CURATOR OF COLLECTIONS Activ e * RETIRED Are you blind or do you have serious difficulty seeing, even when wearing glasses? Answer Date of Assessment Author Status No 01/12/2020 2:53 PM CURATOR OF COLLECTIONS Activ e * Do you have serious [...] to contact insurance etc. Pt stated understanding. TOR OF COLLECTIONS documented in this encounter Plan of Treatment Not on file documented as of this encounter Visit Diagnoses Not on filedocumented in this encounter Care Teams Relay Operator Relationship Specialty Start Date End Date Luis Parrish MD [address] [place] [address] PCP - General PEDIATRICS 01/06/20 documented as of this encounter
--- OUTSIDE RECORDS SUMMARY | 2024-12-29 10:30 | XMS_ITS | Encounter Summary ---
Author Organization [facility] Address [address] [place] [address] Care Team Providers Care Hand Rigger Name Role Phone Luis Parrish MD Primary Care Provider + [phone] Encounter Details Date Type Department Care Team (Late st Contact Info) Description 08/20/2020 [employer] Message Enc [facility] Medical Group Multispecialty Care - [facility] [address] [facility], [address] [place] [phone] Flex Smith MD [address] [place], [place] [phone] RE: Question Social History Tobacco Use Types [...] Assessment Author Status No 01/12/2020 2:53 PM SLIP SHEETER Activ e * RETIRED Are you blind or do you have serious difficulty seeing, even when wearing glasses? Answer Date of Assessment Author Status No 01/12/2020 2:53 PM SLIP SHEETER Activ e * Do you have serious [...] on filedocumented in this encounter Care Teams Hand Rigger Relationship Specialty Start Date End Date Luis Parrish MD [address] [place] [address] PCP - General PEDIATRICS 01/06/20 documented as of this encounter
--- OUTSIDE RECORDS SUMMARY | 2024-12-29 10:30 | XMS_ITS | Encounter Summary ---
Author Organization [facility] Address [address] [place] [address] Care Team Providers Care Framing Mechanic Name Role Phone Unavailable Primary Care Provider Unavailabl e Encounter Details Date Type Department Care Team (Late st Contact Info) Description 12/27/2024 External Device Data STL ABSTRACTION Provider, Abstract [...] on file Legal Sex Female 5:56 AM DOCUMENT MANAGEMENT ANALYST Gender Identity Not on file Sexual Orientation Not on file documented as of this encounter Plan of Treatment Upcoming Encounters Date Type Department Care Team (Late st Contact Info) Description 01/26/2025 10:30 AM DOCUMENT MANAGEMENT ANALYST Appointment [facility] [address] [place] [phone] [place] [address] [facility] [address] [place] [address] 01/26/2025 11:30 AM DOCUMENT MANAGEMENT ANALYST Office Visit [facility] Breast Surgery [place] [address] [place] [address] [place] [address] [facility] [address] [place] [address] 02/24/2025 11:30 AM DOCUMENT MANAGEMENT ANALYST Office Visit [facility] Oncology and Hematology - [place] [address] [facility] [address] [place] [address] Oskar Avalos MD [address] [facility] [address] [place] [address] documented as of this encounter Visit Diagnoses Not on filedocumented in this encounter
--- OUTSIDE RECORDS SUMMARY | 2024-12-29 10:30 | XMS_ITS | Clinical Summary ---
Author Organization [facility] [employer] Address [address] [facility] [place] [address] Care Team Providers Care Top Cutter Name Role Phone Wes Parrish MD Primary Care Provider [phone] Rehana Ceron MD Unavailable [phone] Source Comments [facility],non-owned Affiliates and Associated Physician Practices is amultiple site organization consisting of ambulatory clinics and hospital sitesin [place], [place], [place] and [place]. This disclosure is being madepursuant to the Care Everywhere program and may not contain all information available regarding this patient. Last updated 17.[facility] Allergies Active Allergy Reactions Criticality Noted [...] daily Active Fish Oil Active Calcium Carb-Cholecalcif imchelle (CALCIUM + D3 PO) Active aspirin (ASPIRIN) [...] on file Legal Sex Female 11:24 AM STRAW HAT BRIM RAISER OPERATOR Gender Identity Not on file Sexual [...] of 2) 2002 SCREENING FOR DIABETES 12/15/2018 DEPRESSION SCREENING 03/09/2024 MEDICARE AWV CALENDAR YEAR 2024 COVID-19 VACCINE (1 - 2024-2 5 season) 2024 INFLUENZA VACCINE (#1) 2024 Respiratory Syncytial [...] topic Insurance MEDICARE ADV AENA MEDICARE ADV * Guarantor: TALON WOO Account Type Relation to Patient Date of Phone Billing Address Personal/Family Spouse [address] [place] [phone] [employer] MEDICARE ADV SELF PAY NO INSURANCE Member Subscriber Plan / Payer (Ef fective for All Dates) Name:Talon Woo Member ID:Not on file Relation to Subscriber:Not on file Name:TALON WOO Subscriber ID:Not on file Address: [address] [place], [place] [address] Payer ID:Not on file Group ID:Not on file Type:Self Pay Address: [place], [place] * Guarantor: TALON WOO Account Type Relation to Patient Date of Phone Billing Address Personal/Family Spouse [address] [place] [phone] [employer] MEDICARE ADV SELF PAY NO INSURANCE Member Subscriber Plan / Payer (Ef fective for All Dates) Name:Talon Woo Member ID:Not on file Relation to Subscriber:Not on file Name:TALON WOO Subscriber ID:Not on file Address: [address] [place] [phone] Payer ID:Not on file Group ID:Not on file Type:Self Pay Address: [place], [place] A[employer]NA MEDICARE ADV SELF PAY NO INSURANCE Member Subscriber Plan / Payer (Ef fective for All Dates) Name:Talon Woo Member ID:Not on file Relation to Subscriber:Not on file Name:TALON WOO Subscriber ID:Not on file Address: [place] [address] Payer ID:Not on file Group ID:Not on file Type:Self Pay Address: [place], [place] Care Teams Top Cutter Relationship Specialty Start Date End Date Wes Parrish MD [address] [place] [address] PCP - General 08/20/20 Rehana Ceron MD [address] [place] [address] Family Medicine 08/20/20
--- OUTSIDE RECORDS SUMMARY | 2024-12-29 10:30 | XMS_ITS | Encounter Summary ---
Author Organization [facility] Address [address] [place] [address] Care Team Providers Care Toilet Attendant Name Role Phone Luis Parrish MD Primary Care Provider + [phone] Encounter Details Date Type Department Care Team (Late st Contact Info) Description 02/21/2020 [employer] Message Enc [facility] Medical Group Multispecialty Care - [facility] [address] [facility], [address] [place] [address] Merlene Lara, ROCKY [address] [facility] [address] [place] [address] RE: Question Social History Tobacco Use Types [...] COVID-19? No / Unsure 02/16/2020 11:36 AM FILLER SHREDDER HELPER documented as of this encounter Functional Status * RETIRED Are you deaf or do you have serious difficulty hearing Answer Date of Assessment Author Status No 01/12/2020 2:53 PM FILLER SHREDDER HELPER Activ e * RETIRED Are you blind or do you have serious difficulty seeing, even when wearing glasses? Answer Date of Assessment Author Status No 01/12/2020 2:53 PM FILLER SHREDDER HELPER Activ e * Do you have [...] on filedocumented in this encounter Care Teams Toilet Attendant Relationship Specialty Start Date End Date Luis Parrish MD [address] [place] [address] PCP - General PEDIATRICS 01/06/20 documented as of this encounter
--- OUTSIDE RECORDS SUMMARY | 2024-12-29 10:30 | XMS_ITS | Encounter Summary ---
Author Organization [facility] Address [address] [place] [address] Care Team Providers Care Fruit Or Nut Farmworker Name Role Phone Luis Parrish MD Primary Care Provider [phone] Encounter Details Date Type Department Care Team (Late st Contact Info) Description 07/12/2020 MyChart Message Enc [facility] Medical Group Multispecialty Care - [facility] [address] [facility], [address] [place] [phone] Flex Smith MD [address] [place], [place] [phone] RE: Question Social History Tobacco Use Types [...] Assessment Author Status No 01/12/2020 2:53 PM DINING CAR STEWARD Activ e * RETIRED Are you blind or do you have serious difficulty seeing, even when wearing glasses? Answer Date of Assessment Author Status No 01/12/2020 2:53 PM DINING CAR STEWARD Activ e * Do you have serious [...] on filedocumented in this encounter Care Teams Fruit Or Nut Farmworker Relationship Specialty Start Date End Date Luis Parrish MD [address] [place] [address] PCP - General PEDIATRICS 01/06/20 documented as of this encounter
--- OUTSIDE RECORDS SUMMARY | 2024-12-29 10:30 | XMS_ITS | Clinical Summary ---
Author Organization [facility] Administrative Offices Address [address] [place] [address] Care Team Providers Care Seat Coverer Name Role Phone Unavailable Primary Care Provider [...] daily. 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 Anti-estrogen therapy: Tamoxifen 20 mg daily started September 21, 2023. Breast calcification, left 05/12/2023 Facet arthropathy, lumbar 12/13/2019 Radiculopathy, lumbar region 12/13/2019 Foot drop, right 11/15/2019 Allergic rhinitis 01/23/2014 Overview (01/21/2024): Date Onset: 01/23/2014 Encounters Date Type Department Care Team Description 12/28/2024 External Device Data STL ABSTRACTION Provider, Abstract 12/27/2024 External Device Data STL ABSTRACTION Provider, Abstract 11/29/2024 External Device Data STL ABSTRACTION Provider, Abstract 11/22/2024 External Device Data STL ABSTRACTION Provider, Abstract 11/13/2024 Refill [facility] Oncology and Hematology [facility] [address] [place] [address] Oskar Avalos MD 10/06/2024 11:00 AM CDT Office Visit [facility] Oncology and [facility] [address] [place] [address] Oskar Avalos MD Breast neoplasm, Tis (DCIS), left (Primary Dx) 10/06/2024 Orders Only [facility] Oncology and [facility] [address] [place] [address] Oskar Avalos MD from Last 3 Months Family History Medical [...] on file Legal Sex Female 5:56 AM POOL NURSE Gender Identity Not on file Sexual Orientation Not on file Last Filed Vital Signs Vital Sign Reading Time Taken Comments Blood Pressure 163/97 10/06/2024 10:33 AM CDT Pulse 86 10/06/2024 10:33 AM CDT Temperature 36.7 C (98.1 F) 10/06/2024 10:33 AM CDT Respiratory Rate 15 10/06/2024 10:33 AM CDT Oxygen Saturation 95% 10/06/2024 10:33 AM CDT Inhaled Oxygen Concentration - - Weight 72.1 kg (159 lb) 10/06/2024 10:33 AM CDT Height 172.1 cm (5' 7.75) 01/21/2024 11:[address] Body Mass Index 24.35 01/21/2024 11:00 AM POOL NURSE Plan of Treatment Upcoming Encounters Date Type Department Care Team (Late st Contact Info) Description 01/26/2025 10:30 AM POOL NUR[address] [facility] [address] [place] [address] [place] [address] [place] [address] 01/26/2025 11:30 AM POOL NURSE Office Visit [facility] Breast Surgery [address] [place] [address] [facility] [address] [place] [id number] [place] [address] [place] [address] 02/24/2025 11:30 AM POOL NURSE Office Visit [facility] Oncology and Hematology - [place] [address] [facility] [address] [place] [address] Oskar Avalos MD [address] [facility] [address] [place] [address] Health Maintenance Due Date Last Done Comments FIT-DNA Q 3 years 1997 FIT/FOBT Q 1 year 1997 Flex Sig/CT Colonography Q 5 years 1997 OSTEOPOROSIS SCREENING 2017 DTAP/TDAP/TD VACCINES (2 - T d or Tdap) 09/13/2023 09/12/2013 INFLUENZA VACCINE (#1) 2024 , 12/14/2022, 12/09/2021, Additional history exists COVID-19 Vaccine (2024-2 6 season) 2024 01/12/2023, 12/09/2021, 06/30/2021, Additional history exists BREAST CANCER SCREENING 01/20/2025 01/21/20 24, 02/19/2022, 02/19/2022, Additional history exists RSV VACCINE (60+ or ) (1 - 1-dose 75+ series) 06/12/2027 COLORECTAL SCREENING 10/29/2027 10/28/2017 Colorectal Cancer Screening 10/29/2027 ZOSTER VACCINE Completed 02/13/2020, 12/14/2019 PNEUMOCOCCAL VACCINE 50+ YEARS Completed 1 , 07/26/2019, 12/07/2012 Medical Devices Implanted Type Area Repair Miller Device Identifier Shelf Expiration Date Model / Serial / Lot Clip Ligating Horizon Med Ti [id number] - Csc - [id number] Implanted:Qty: 1 on 07/06/2023 by Sabrina Scott MD at [facility] Clip Left: Breast TELEFLEX- WECK CLOSURE SYS 12/02/2026 [id number] / / [id number] Procedures Procedure Name Priority Date/Time Associated Diagnosis Comments COMPREHENSIVE METABOLIC PANEL Routine 10/06/2024 3:54 PM CDT BASIC METABOLIC PANEL Routine 10/06/2024 11:56 AM CDT CBC WITH AUTODIFFERENTIAL Routine 10/06/2024 11:55 AM CDT MAMMO 3D MARTHA DIAGNOSTIC BILAT W OR WO CAD Routine 01/21/2024 10:39 AM POOL NURSE Ductal carcinoma in situ (DCIS) of left breast from Last 3 Months or Most Recently Relevant to Health Maintenance Results * COMPREHENSIVE METABOLIC PANEL (10/06/2024 3:54 PM CDT) Blood us Oskar Avalos MD CHEMISTRY ORDERABLES Final Resu lt * BASIC METABOLIC PANEL (10/06/2024 11:56 AM CDT) Blood us Oskar Avalos MD CHEMISTRY ORDERABLES Final Resu lt * CBC WITH AUTODIFFERENTIAL (10/06/2024 11:55 AM CDT) Blood us Oskar Avalos MD HEMATOLOGY ORDERABLES Final Res ult * MAMMO 3D MARTHA DIAGNOSTIC BILAT W OR WO CAD (01/21/2024 10:39 AM POOL NURSE) Anatomical Region Laterality Modality Breast Bilateral Mammography 01/21/2024 10:3 9 AM POOL NURSE Impressions 01/21/2024 12:25 PM POOL NURSE IMPRESSION: No mammographic evidence of malignancy. RECOMMENDATIONS: Bilateral diagnostic mammogram in one year. DICTATION LOCATION: Marnie Persaud Narrative 01/21/2024 12:25 PM POOL NURSE EXAM: BILATERAL DIAGNOSTIC FULL-FIELD DIGITAL MAMMOGRAM WITH [...] diagnostic mammogram in one year. DICTATION LOCATION: [facility] Sabrina Scott MD MAMMO ORDERABLES Final Result from Last 3 Months or Most Recently Relevant to Health Maintenance Insurance AETNA PPO [facility]
--- OUTSIDE RECORDS SUMMARY | 2024-12-29 10:30 | XMS_ITS | Clinical Summary ---
Author Organization [facility] Address [address] [place] [address] Care Team Providers Care Radio Machinist Name Role Phone Luis Parrish MD Primary Care Provider + [phone] Allergies Active Allergy Reactions Criticality Noted Date Comments Erythromycin Unknown 01/06/2011 Large [employer] Medications multivitamin tablet Take 1 tablet by [...] 37.1 C (98.7 F) 01/19/2020 3:17 PM DISPLAY MECHANIC Respiratory Rate 18 11/02/2020 1:16 PM CDT [...] Vaccine: 50+ Years (2 of 2 - PCV20 or PCV21) 07/25/2020 07/26/2019 DTaP, Tdap and Td Vaccines (2 - Td or Tdap) 09/13/2023 09/12/2013 Mammogram Screening 02/20/2024 02/19/2022 COVID-19 Vaccine ( - season) 2024 01/08/2021, 05/15/2020, 04/12/2020 Influenza Adult (#1) 2024 12/04/2020, 11/22/2018, 11/29/2017, Additional history exists RSV Immunization or 60+ Years (1 - 1-dose 75+ series) 06/12/2027 Colorectal Cancer Screening Colonoscopy (10 Years) 10/29/2027 10/28/2017 Hepatitis C Completed 06/28/2014 Zoster Vaccines Completed 02/13/2020, 12/14/2019 Hepatitis A Vaccines Aged Out No long er eligible based on patient's age to complete this topic Meningococcal B Vaccine Aged Out No l onger eligible based on patient's age to complete this topic Meningococcal Vaccine Aged Out No sukhwinder natan eligible based on patient's age to complete this topic RSV Immunizations Under 20 Months Aged Out No longer eligible based on patient's age to complete this topic Medical Devices Implanted Type Area Chisel Mortiser Operator Device Identifier Shelf Expiration Date Model / Serial / Lot Graft Infuse Bone Small - [id number] Implanted:Qty: 1 on 01/12/2020 by Flex Smith MD at [facility] N/A: Spine Lumbar [employer] 12/06/2021 [id number] / / [id number] Progenix Plus Spinalgraft Putty 2.5cc - [id number] Implanted:Qty: 1 on 01/12/2020 by Flex Smith MD at [facility] N/A: Spine Lumbar [employer] 07/04/2021 [id number] / / [id number] Hole Plate Implanted:Qty: 1 on 01/12/2020 by Flex Smith MD at [facility] N/A: Spine Lumbar [employer] 10/26/2027 [id number] / / [id number] Screw Implanted:Qty: 2 on 01/12/2020 by Flex Smith MD at [facility] N/A: Spine Lumbar [employer] 11/09/2027 [id number] / / [id number] Interbody Implanted:Qty: 1 on 01/12/2020 by Flex Smith MD at [facility] N/A: Spine Lumbar [employer] 11/01/2026 [id number] / / [id number] 6.5 X 45 Screw Implanted:Qty: 2 on 01/12/2020 by Flex Smith MD at [facility] N/A: Spine Lumbar [employer] [id number] / / 4.75 X 40 [place] Implanted:Qty: 1 on 01/12/2020 by Flex Smith MD at [facility] N/A: Spine Lumbar [employer] [id number] / / Voyager Set Screws Implanted:Qty: 2 on 01/12/2020 by Flex Smith MD at [facility] N/A: Spine Lumbar [employer] [id number] / / Procedures Procedure Name Priority Date/Time Associated Diagnosis Comments MG SCREENING W MARTHA MICHAEL DIGI Routine 02/19/2022 9:30 AM DISPLAY MECHANIC Encounter for screening mammogram for malignant neoplasm of breast COLONOSCOPY/EGD GENERIC (SCAN ORDER) 10/28/2017 HEPATITIS PANEL,ACUTE Routine 06/28/2014 8:40 AM CDT from Last 3 Months or Most Recently Relevant to Health Maintenance Results * MG SCREENING W MARTHA MICHAEL DIGI (02/19/2022 9:30 AM DISPLAY MECHANIC) Anatomical Region Laterality Modality Breast Bilateral Computed Tomogra phy, Other 02/19/2022 10:1 5 AM DISPLAY MECHANIC Narrative 02/19/2022 10:28 AM DISPLAY MECHANIC IMAGING STUDIES: Bilateral screening mammograms with computer-aided [...] CONVERSION Comment: THIS TEST WAS PERFORMED AT [facility] [address] [place] [address] 06/28/2014 8:40 AM CDT 06/28/2014 8:40 AM CDT Narrative [facility] TO EPIC CONVERSION - 06/29/2014 12:16 PM CDT This lab was migrated from [facility] and may be missing annotations or result text, please check the Media tab for the most complete results. us Luis Parrish MD LABORATORY Final Result [facility] TO EP[facility] CONVERSION from Last 3 Months or Most Recently Relevant to Health Maintenance Insurance MED REPLACE [facility] [place] [address] Advance Directives Documents on File Type Date Recorded Patient Chief Sales Officer Expl anation Advance Directives and Living Will 01/14/2020 8:11 AM 08-08-2009 signed Alyssa Pitts, Vice Chairman for Health Care, MARIELLA Advance Directives and [...] 2:40 PM 01/13/2020 7:20 PM Care Teams Radio Machinist Relationship Specialty Start Date End Date Luis Parrish MD [address] [place] [address] PCP - General PEDIATRICS 01/06/20
[2024-12-29 18:48] LABS: Free T4 Free Thyroxine 1.32 ng/dL (0.78-2.19)
[2024-12-29 18:58] LABS: Hematocrit 45.3 % (37.0-47.0); Hemoglobin 14.5 g/dL (12.0-15.0); Immature Granulocyte Percent A 0.2 % (0-0.5); Lymphocytes Absolute Auto 1.30 K/mm3 (0.9-3.2); Mean Corpuscular HGB Conc 32.0 g/dl (32-36); Mean Corpuscular Hemoglobin 30.8 pg (26-34); Mean Corpuscular Volume 96.2 fl (80-100); Nucleated Red Blood Cells Absolute Auto 0.000 K/mm3 (0.0-0.012); Nucleated Red Blood Cells Perc 0.0 % (0.0-0.2); Platelet Count Result 305 k/mm3 (150-375); Red Blood Count 4.71 M/mm3 (4.2-5.4); White Blood Count 4.8 K/mm3 (4.5-10.0)
[2024-12-29 22:40] LABS: Alanine Aminotransferase 19 U/L (6-35); Albumin Level 4.0 g/dL (3.5-5.1); Alkaline Phosphatase 65 U/L (38-126); Anion Gap 3 mmol/L (4-12); Aspartate Amino Transferase 34 U/L (14-36); Bilirubin,Total 0.5 mg/dL (0.2-1.3); Blood Urea Nitrogen 17 mg/dL (7-17); Calcium 8.8 mg/dL (8.4-10.2); Carbon Dioxide 25 mmol/L (22-30); Chloride 105 mmol/L (98-107); Estimated Glomerular Filt Rate > 60; Glucose 99 mg/dL (65-110); Potassium 4.5 mmol/L (3.4-5.0); Sodium 133 mmol/L (137-145); Total Protein 6.9 g/dL (6.3-8.2)
[2024-12-29 23:45] LABS: Vitamin B12 296.0 pg/mL (239-931)
[2024-12-30 04:43] LABS: Thyroid Stimulating Hormone 1.130 uIU/mL (0.465-4.680)
== END 2024-12-29 09:49 | disposition home or self-care (01) ==
LOC: ANHGOSHLAB 09:49
PROVIDERS: PCP Physician Assistant; Visit Provider Physician Assistant
DX: Z13.220 Encounter for screening for lipoid disorders (principal); Z79.891 Long term (current) use of opiate analgesic
CPT/HCPCS: 36415; 80053; 82607; 82746; 84100; 84439; 84443; 85025

== ENCOUNTER 2025-01-10 09:29 | Outpatient (CLI) | payer MEDICARE, SELFPAY ==
--- OUTSIDE RECORDS SUMMARY | 2025-01-10 10:37 | XMS_ITS | Clinical Summary ---
Author Organization [facility] Administrative Offices Address [address] [place] [address] Care Team Providers Care Turkish Rubber Name Role Phone Unavailable Primary Care Provider [...] of diagnosis: 06/04/2023 Diagnosis: LEFT DCIS ER(+) [place](+) Surgeon: Tyler Surgery: 07/06/2023 left lump; 07/12/2023 [...] Device Data STL ABSTRACTION Provider, Abstract 11/13/2024 [facility] Oncology and Hematology [facility] [address] [place] [address] Oskar Avalos MD from Last 3 Months [...] on file Legal Sex Female 5:56 AM POLITICAL THEORY PROFESSOR Gender Identity Not on file Sexual Orientation [...] Body Mass Index 24.35 01/21/2024 11:00 AM POLITICAL THEORY PROFESSOR Plan of Treatment Upcoming Encounters Date Type Department Care Team (Late st Contact Info) Description 01/26/2025 10:30 AM POLITICAL THEORY PROFESSOR Appointment [facility] [address] [place] [phone] [place] [address] [place] [address] 01/26/2025 11:30 AM POLITICAL THEORY PROFESSOR Office Visit [facility] Breast Surgery [address] [facility] [address] [place] [address] [place] [address] [place] [address] 02/24/2025 11:30 AM POLITICAL THEORY PROFESSOR Office Visit [facility] Oncology and Hematology - [place] [address] [place] [address] Oskar Avalos MD [address] [facility] [address] [place] [address] Health Maintenance Due Date Last Done Comments FIT-DNA Q 3 years 1997 FIT/FOBT Q 1 year 1997 Flex Sig/CT Colonography Q 5 years 1997 OSTEOPOROSIS SCREENING 2017 DTAP/TDAP/TD VACCINES (2 - T d or Tdap) 09/13/2023 09/12/2013 INFLUENZA VACCINE (#1) 2024 , 12/14/2022, 12/09/2021, Additional history exists COVID-19 Vaccine (2024- 6 season) 2024 01/12/2023, 12/09/2021, 06/30/2021, Additional history exists BREAST CANCER SCREENING 01/20/2025 01/21/20, 02/19/2022, 02/19/2022, Additional history exists RSV VACCINE (60+ or ) (1 - 1-dose 75+ series) 06/12/2027 COLORECTAL SCREENING 10/29/2027 10/28/2017 Colorectal Cancer Screening 10/29/2027 ZOSTER VACCINE Completed 02/13/2020, 12/14/2019 PNEUMOCOCCAL VACCINE 50+ YEARS Completed 1 , 07/26/2019, 12/07/2012 Medical Devices Implanted Type Area Jacquard Loom Carpet Weaver Device Identifier Shelf Expiration Date Model / Serial / Lot Clip Ligating [facility] Med Ti [id number] - Csc - [id number] Implanted:Qty: 1 on 07/06/2023 by Sabrina Scott MD at [facility] Clip Left: Breast TELEFLEX- WECK CLOSURE SYS 12/02/2026 [id number] / / [id number] Procedures Procedure Name Priority Date/Time Associated Diagnosis Comments MAMMO 3D MARTHA DIAGNOSTIC BILAT W OR WO CAD Routine 01/21/2024 10:39 AM POLITICAL THEORY PROFESSOR Ductal carcinoma in situ (DCIS) of left breast from Last 3 Months or Most Recently Relevant to Health Maintenance Results * MAMMO 3D MARTHA DIAGNOSTIC BILAT W OR WO CAD (01/21/2024 10:39 AM POLITICAL THEORY PROFESSOR) Anatomical Region Laterality Modality Breast Bilateral Mammography 01/21/2024 10:3 9 AM POLITICAL THEORY PROFESSOR Impressions 01/21/2024 12:25 PM POLITICAL THEORY PROFESSOR IMPRESSION: No mammographic evidence of malignancy. RECOMMENDATIONS: Bilateral diagnostic mammogram in one year. DICTATION LOCATION: Marnie Persaud [facility] 01/21/2024 12:25 PM POLITICAL THEORY PROFESSOR EXAM: BILATERAL DIAGNOSTIC FULL-FIELD DIGITAL MAMMOGRAM WITH [...] diagnostic mammogram in one year. DICTATION LOCATION: [facility] Sabrina Scott MD MAMMO ORDERABLES Final Result from Last 3 Months or Most Recently Relevant to Health Maintenance Insurance AETNA O [facility] AETNA [facility]
--- OUTSIDE RECORDS SUMMARY | 2025-01-10 10:37 | XMS_ITS | Encounter Summary ---
Author Organization [facility] Address [address] [place] [address] Care Team Providers Care Media Liaison Officer Name Role Phone Luis Parrish MD Primary Care Provider + [phone] Encounter Details Date Type Department Care Team (Late st Contact Info) Description 08/20/2020 [employer] Message Enc [facility] Medical Group Multispecialty Care - [facility] [address] [facility], [address] [place] [phone] Flex Smith MD [address] [place], [place] [phone] RE: Question Social History Tobacco Use Types [...] Assessment Author Status No 01/12/2020 2:53 PM TIMBER CRUISER Activ e * RETIRED Are you blind or do you have serious difficulty seeing, even when wearing glasses? Answer Date of Assessment Author Status No 01/12/2020 2:53 PM TIMBER CRUISER Activ e * Do you have serious [...] on filedocumented in this encounter Care Teams Media Liaison Officer Relationship Specialty Start Date End Date Luis Parrish MD [address] [place] [phone] PCP - General PEDIATRICS 01/06/20 documented as of this encounter
--- OUTSIDE RECORDS SUMMARY | 2025-01-10 10:37 | XMS_ITS | Encounter Summary ---
Author Organization [facility] Address [address] [place] [address] Care Team Providers Care Political Science Research Assistant Name Role Phone Luis Parrish MD Primary Care Provider + [phone] Encounter Details Date Type Department Care Team (Late st Contact Info) Description 02/21/2020 Lib[employer] Message Enc [facility] Medical Group Multispecialty Care - [facility] [address] [facility], [address] [place] [address] Merlene Lara, ROCKY [address] [facility] [address] [place] [address] RE: Question Social History Tobacco Use Types [...] COVID-19? No / Unsure 02/16/2020 11:36 AM FUR BLOWING MACHINE OPERATOR documented as of this encounter Functional Status * RETIRED Are you deaf or do you have serious difficulty hearing Answer Date of Assessment Author Status No 01/12/2020 2:53 PM FUR BLOWING MACHINE OPERATOR Activ e * RETIRED Are you blind or do you have serious difficulty seeing, even when wearing glasses? Answer Date of Assessment Author Status No 01/12/2020 2:53 PM FUR BLOWING MACHINE OPERATOR Activ e * Do you [...] on filedocumented in this encounter Care Teams Political Science Research Assistant Relationship Specialty Start Date End Date Luis Parrish MD [address] [place] [address] PCP - General PEDIATRICS 01/06/20 documented as of this encounter
--- OUTSIDE RECORDS SUMMARY | 2025-01-10 10:37 | XMS_ITS | Clinical Summary ---
Author Organization [facility] [employer] Address [address] [place] [address] Care Team Providers Care Furniture Builder Name Role Phone Wes Parrish MD Primary Care Provider [phone] Rehana Ceron MD Unavailable [phone] Source Comments [facility],non-owned Affiliates and Associated Physician Practices is amultiple site organization consisting of ambulatory clinics and hospital sitesin [place], [place], [place] and [place]. This disclosure is being madepursuant to the Care Everywhere program and may not contain all information available regarding this patient. Last updated 17.[facility] Allergies Active Allergy Reactions Criticality [...] on file Legal Sex Female 11:24 AM BREEDER SERVICE TECHNICIAN Gender Identity Female 01/03/2025 6:48 PM CDT Sexual Orientation Straight 01/03/2025 6: 48 PM CDT Last Filed Vital Signs Vital Sign Reading [...] MEDICARE AWV CALENDAR YEAR 2024 COVID-19 VACCINE ( - 2023-2 5 season) 2024 INFLUENZA VACCINE (#1) 2024 [...] / Payer (Ef fective for All Dates) Name:Omkar Talon Member ID:Not on file Relation to Subscriber:Not on file Name:TALON WOO Subscriber ID:Not on file Address: [address] [place] [address] Payer ID:Not on file Group ID:Not on file Type:Self Pay Address: [place], [place] AETNA MEDICARE ADV SELF PAY NO INSURANCE Member Subscriber Plan / Payer (Ef fective for All Dates) Name:Talon Woo Member ID:Not on file Relation to Subscriber:Not on file Name:TALON WOO Subscriber ID:Not on file Address: [address] [place] [address] Payer ID:Not on file Group ID:Not on file Type:Self Pay Address: [place], [place] AETNA MEDICARE ADV SELF PAY NO INSURANCE Member Subscriber Plan / Payer (Ef fective for All Dates) Name:Talon Woo Member ID:Not on file Relation to Subscriber:Not on file Name:INDIA WOORI Subscriber ID:Not on file Address: [address] [place] [address] Payer ID:Not on file Group ID:Not on file Type:Self Pay Address: [place], [place] Care Teams Furniture Builder Relationship Specialty Start Date End Date Wes Parrish MD [address] [place] [address] PCP - General 08/20/20 Rehana Ceron MD [address] [place] [address] Family Medicine 08/20/20
--- OUTSIDE RECORDS SUMMARY | 2025-01-10 10:37 | XMS_ITS | Encounter Summary ---
Author Organization [facility] Address [address] [place] [address] Care Team Providers Care Incubator Tender Name Role Phone Luis Parrish MD Primary Care Provider [phone] Encounter Details Date Type Department Care Team (Late st Contact Info) Description 07/12/2020 MyChart Message Enc [facility] Medical Group Multispecialty Care - [facility] [address] [facility], [address] [place] [phone] Flex Smith MD [address] [place], [place] [phone] RE: Question Social History Tobacco Use Types [...] Assessment Author Status No 01/12/2020 2:53 PM INSTRUMENT REPAIR SPECIALIST Activ e * RETIRED Are you blind or do you have serious difficulty seeing, even when wearing glasses? Answer Date of Assessment Author Status No 01/12/2020 2:53 PM INSTRUMENT REPAIR SPECIALIST Activ e * Do you have [...] on filedocumented in this encounter Care Teams Incubator Tender Relationship Specialty Start Date End Date Luis Parrish MD [address] [place] [address] PCP - General PEDIATRICS 01/06/20 documented as of this encounter
--- OUTSIDE RECORDS SUMMARY | 2025-01-10 10:37 | XMS_ITS | Clinical Summary ---
Author Organization [facility] Address [address] [place] [address] Care Team Providers Care Barrel Repairer Name Role Phone Luis Parrish MD Primary Care Provider + [phone] Allergies Active Allergy Reactions Criticality Noted Date Comments Erythromycin Unknown 01/06/2011 Large [email or web address] Medications multivitamin tablet Take 1 tablet by [...] 37.1 C (98.7 F) 01/19/2020 3:17 PM INSIDE CHANNEL ACCOUNT MANAGER Respiratory Rate 18 11/02/2020 1:16 PM CDT [...] this topic Medical Devices Implanted Type Area Perianesthesia Rn Device Identifier Shelf Expiration Date Model / Serial / Lot Graft Infuse Bone Small - [id number] Implanted:Qty: 1 on 01/12/2020 by Flex Smith MD at [facility] N/A: Spine Lumbar [employer] 12/06/2021 [id number] / / [id number] Progenix Plus Spinalgraft Putty 2.5cc - [id number] Implanted:Qty: 1 on 01/12/2020 by Flex Smith MD at [facility] N/A: Spine Lumbar [employer] 07/04/2021 [id number] / / [id number] 2 Hole Plate Implanted:Qty: 1 on 01/12/2020 by Flex Smith MD at [facility] N/A: Spine Lumbar [employer] 10/26/2027 [id number] / / [id number] Screw Implanted:Qty: 2 on 01/12/2020 by Flex Smith MD at [facility] N/A: Spine Lumbar [employer] 11/09/2027 [id number] / / [id number] Interbody Implanted:Qty: 1 on 01/12/2020 by Flex Smith MD at [facility] N/A: Spine Lumbar [employer] 11/01/2026 [id number] / / [id number] 6.5 X 45 Screw Implanted:Qty: 2 on 01/12/2020 by Flex Smith MD at [facility] N/A: Spine Lumbar [employer] [id number] / / 4.75 X 40 [place] Implanted:Qty: 1 on 01/12/2020 by Flex Smith MD at [facility] N/A: Spine Lumbar [employer] [id number] / / Voyager Set Screws Implanted:Qty: 2 on 01/12/2020 by Flex Smith MD at [facility] N/A: Spine Lumbar [employer] [id number] / / Procedures Procedure Name Priority Date/Time Associated Diagnosis Comments MG SCREENING W MARTHA MICHAEL DIGI Routine 02/19/2022 9:30 AM INSIDE CHANNEL ACCOUNT MANAGER Encounter for screening mammogram for malignant neoplasm of breast COLONOSCOPY/EGD GENERIC (SCAN ORDER) 10/28/2017 HEPATITIS PANEL,ACUTE Routine 06/28/2014 8:40 AM CDT from Last 3 Months or Most Recently Relevant to Health Maintenance Results * MG SCREENING W MARTHA MICHAEL DIGI (02/19/2022 9:30 AM INSIDE CHANNEL ACCOUNT MANAGER) Anatomical Region Laterality Modality Breast Bilateral Computed Tomogra phy, Other 02/19/2022 10:1 5 AM INSIDE CHANNEL ACCOUNT MANAGER Narrative 02/19/2022 10:28 AM INSIDE CHANNEL ACCOUNT MANAGER IMAGING STUDIES: Bilateral screening mammograms with computer-aided [...] CONVERSION Comment: THIS TEST WAS PERFORMED AT [facility] [id number] [place] [address] 06/28/2014 8:40 AM CDT 06/28/2014 8:40 AM CDT Narrative [facility] TO EPIC CONVERSION - 06/29/2014 12:16 PM CDT This lab was migrated from [facility] and may be missing annotations or result text, please check the Media tab for the most complete results. us Luis Parrish MD LABORATORY Final Result [facility] TO EPIC CONVERSION from Last 3 Months or Most Recently Relevant to Health Maintenance Insurance MED [facility] MEDICARE Advance Directives Documents on File Type Date Recorded Patient Director Clinical Research Expl anation Advance Directives and Living Will 01/14/2020 8:11 AM 08-08-2009 signed Alyssa Pitts, Job Coach/Job Developer for Health Care, MARIELLA Advance Directives and [...] 2:40 PM 01/13/2020 7:20 PM Care Teams Barrel Repairer Relationship Specialty Start Date End Date Luis Parrish MD [address] [place] [address] PCP - General PEDIATRICS 01/06/20
--- OUTSIDE RECORDS SUMMARY | 2025-01-10 10:37 | XMS_ITS | Encounter Summary ---
Author Organization [facility] - [facility] Address [address] [place] [address] Care Team Providers Care Stone Layout Marker Name Role Phone Luis Parrish MD Primary Care Provider + [phone] Encounter Details Date Type Department Care Team (Latest Contact Info) Description 01/20/2020 [place] Message Enc [facility] Medical Group Multispecialty Care - [facility] [address] [facility], [address] [place] [address] Merlene Lara APRN [address] [facility] [address] [place] [address] RE: Medication Questions Social History Tobacco Use [...] COVID-19? No / Unsure 01/19/2020 3:04 PM PIECE JOBBER documented as of this encounter Functional Status * RETIRED Are you deaf or do you have serious difficulty hearing Answer Date of Assessment Author Status No 01/12/2020 2:53 PM PIECE JOBBER Activ e * RETIRED Are you blind or do you have serious difficulty seeing, even when wearing glasses? Answer Date of Assessment Author Status No 01/12/2020 2:53 PM PIECE JOBBER Activ e * Do you have serious [...] contact insurance etc. Pt stated understanding. E JOBBER documented in this encounter Plan of Treatment Not on file documented as of this encounter Visit Diagnoses Not on filedocumented in this encounter Care Teams Stone Layout Marker Relationship Specialty Start Date End Date Luis Parrish MD [address] [place] [address] PCP - General PEDIATRICS 01/06/20 documented as of this encounter
[2025-01-10 13:15] LABS: Cholesterol 219 mg/dL (0-200); HDL Direct 63 mg/dL; Triglycerides 110 mg/dL (<150)
== END 2025-01-10 09:30 | disposition home or self-care (01) ==
LOC: ANHGOSHLAB 09:30
PROVIDERS: PCP Physician Assistant; Visit Provider Physician Assistant
DX: Z13.220 Encounter for screening for lipoid disorders (principal)
CPT/HCPCS: 36415; 80061

== ENCOUNTER 2025-02-24 10:05 | Outpatient (CLI) | payer MEDICARE, SELFPAY ==
[2025-02-24 10:21] LABS: Hematocrit 40.2 % (37.0-47.0); Hemoglobin 13.5 g/dL (12.0-15.0); Immature Granulocyte Percent A 0.2 % (0-0.5); Lymphocytes Absolute Auto 1.11 K/mm3 (0.9-3.2); Mean Corpuscular HGB Conc 33.6 g/dl (32-36); Mean Corpuscular Hemoglobin 31.5 pg (26-34); Mean Corpuscular Volume 93.7 fl (80-100); Nucleated Red Blood Cells Absolute Auto 0.000 K/mm3 (0.0-0.012); Nucleated Red Blood Cells Perc 0.0 % (0.0-0.2); Platelet Count Result 274 k/mm3 (150-375); Red Blood Count 4.29 M/mm3 (4.2-5.4); White Blood Count 4.7 K/mm3 (4.5-10.0)
--- OUTSIDE RECORDS SUMMARY | 2025-02-24 10:37 | XMS_ITS | Clinical Summary ---
Author Organization [facility] Address [address] [place] [address] Care Team Providers Care Potato Grader Name Role Phone Unavailable Primary Care Provider [...] TAKE 1 TABLET DAILY 90 Tablet 3 Active losartan (COZAAR) 25 mg tablet Take 25 mg by mouth daily. Active CYANOCOBALAMIN, VITAMIN B-12, ORAL Take by mouth. Activ e Active Problems Problem Noted Date Diagnosed Date [...] Encounters Date Type Department Care Team Description 02/24/2025 11:30 AM CLOTH NAPPING SUPERVISOR Office Visit [facility] Oncology and Hematology [facility] [address] [place] [address] Oskar Avalos MD Breast neoplasm, Tis (DCIS), left (Primary Dx) 01/26/2025 11:30 AM CLOTH NAPPING SUPERVISOR Office Visit [facility] Breast Surgery [place] [address] [facility] [address] [place] [address] Sabrina Scott MD Breast neoplasm, Tis (DCIS), left (Primary Dx) 01/26/2025 11:06 AM CLOTH NAPPING SUPERVISOR - 01/26/2025 11:59 PM CLOTH NAPPING SUPERVISOR Hospital Encounter [facility] [address] [place] [phone] Sabrina Scott MD Discharge Disposition: Home or Self Care 01/26/2025 10:19 AM CLOTH NAPPING SUPERVISOR - 01/26/2025 11:59 PM [facility] [place] [address] [place] [address] Sabrina Scott MD Discharge Disposition: Home or Self Care 12/28/2024 External Device Data STL ABSTRACTION Provider, [...] who hurts you emotionally and/or physically? No 01/26/2025 Food Insecurity Answer Date Recorded Social/Environmental Concerns No concerns Transportation Needs Answer Date Record ed Social/Environmental Concerns No concerns Housing Stability Answer Date Recorded Social/Environmental Concerns No concerns Utility Needs Answer Date Recorded Social/Environmental Concerns No concerns Comments No Sex and Gender Information Value Date Recorded Sex Assigned at Not on file Legal Sex Female 5:56 AM CLOTH NAPPING SUPERVISOR Gender Identity Not on file Sexual Orientation Not on file Last Filed Vital Signs Vital Sign Reading Time Taken Comments Blood Pressure 153/95 02/24/2025 10:24 AM CLOTH NAPPING SUPERVISOR Pulse 81 02/24/2025 10:21 AM CLOTH NAPPING SUPERVISOR Temperature 36.6 C (97.8 F) 02/24/2025 10:21 AM CLOTH NAPPING SUPERVISOR Respiratory Rate 15 02/24/2025 10:21 AM CLOTH NAPPING SUPERVISOR Oxygen Saturation 96% 02/24/2025 10:21 AM CLOTH NAPPING SUPERVISOR Inhaled Oxygen Concentration - - Weight 73.5 kg (162 lb) 02/24/2025 10:21 AM CLOTH NAPPING SUPERVISOR Height 171.5 cm (5' 7.5) 01/26/2025 11:34 AM CS T Body Mass Index 25 01/26/2025 11:34 AM CLOTH NAPPING SUPERVISOR Plan of Treatment Upcoming Encounters Date Type Department Care Team (Late st Contact Info) Description 02/24/2025 11:30 AM CLOTH NAPPING SUPERVISOR Office Visit [facility] Oncology and Hematology - [place] [address] [place] [address] Oskar Avalos MD [address] [facility] [address] [place] [address] Breast neoplasm, Tis (DCIS), left (Primary Dx) 02/06/2026 10:30 AM CLOTH NAPPING SUPERVISOR Appointment [facility] [place] [address] [place] [address] [place] [address] [facility] [address] [place] [address] 02/06/2026 11:30 AM CLOTH NAPPING SUPERVISOR Office Visit [facility] Breast Surgery [place] [address] [facility] [address] [place] [address] [place] [address] [facility] [address] [place] [address] Health Maintenance Due Date Last Done Comments FIT-DNA Q 3 years 1997 FIT/FOBT Q 1 year 1997 Flex Sig/CT Colonography Q 5 years 1997 OSTEOPOROSIS SCREENING 2017 DTAP/TDAP/TD VACCINES (2 - T d or Tdap) 09/13/2023 09/12/2013 Medicare Advantage ([place]) Preventative Visit/Annual Wellness Visit 03/09/2024 COVID-19 Vaccine (2024-2 6 season) 2024 01/12/2023, 12/09/2021, 06/30/2021, Additional history exists BREAST CANCER SCREENING 01/26/2026 01/27/20, 01/21/2024, 02/19/2022, Additional history exists RSV VACCINE (60+ or ) (1 - 1-dose 75+ series) 06/12/2027 COLORECTAL SCREENING 10/29/2027 10/28/2017 Colorectal Cancer Screening 10/29/2027 ZOSTER VACCINE Completed 02/13/2020, 12/14/2019 PNEUMOCOCCAL VACCINE 50+ YEARS Completed 1 , 07/26/2019, 12/07/2012 INFLUENZA VACCINE Completed 12/06/2024, , 12/14/2022, Additional history exists Medical Devices Implanted Type Area Turret Lathe Set Up Operator Device Identifier Shelf Expiration Date Model / Serial / Lot Clip Ligating Empathy Marketing Med [id number] - [facility] - [id number] Implanted:Qty: 1 on 07/06/2023 by Sabrina Scott MD at [facility] [place] Clip Left: Breast TELEFLEX- WECK CLOSURE SYS 12/02/2026 [id number] / / [id number] Procedures Procedure Name Priority Date/Time Associated Diagnosis Comments MAMMO BREAST US LEFT LTD Routine 01/26/2025 11:22 AM CLOTH NAPPING SUPERVISOR Abnormal mammogram of left breast MAMMO 3D MARTHA DIAGNOSTIC BILAT W OR WO CAD Routine 01/26/2025 10:55 AM CLOTH NAPPING SUPERVISOR Breast neoplasm, Tis (DCIS), left from Last 3 Months Results * MAMMO BREAST US LEFT LTD (01/26/2025 11:22 AM CLOTH NAPPING SUPERVISOR) Anatomical Region Laterality Modality Left Ultrasound 01/26/2025 11:2 2 AM CLOTH NAPPING SUPERVISOR Impressions 01/26/2025 11:27 AM CLOTH NAPPING SUPERVISOR IMPRESSION: No suspicious findings to suggest malignancy in either breast. Annual mammography is recommended. OVERALL FINAL ASSESSMENT: BI-RADS CATEGORY 2: Benign findings. DICTATION LOCATION: [facility] 01/26/2025 11:27 AM CLOTH NAPPING SUPERVISOR BILATERAL FULL-FIELD DIGITAL DIAGNOSTIC MAMMOGRAM WITH CAD WITH TOMOSYNTHESIS. Limited left breast ultrasound. DATE: 01/26/2025 10:55 AM HISTORY: Personal history of left breast cancer with conservation therapy 2023. TECHNIQUE: Full-field digital craniocaudal, mediolateral and mediolateral oblique projections of both breasts were obtained. Low-dose full-field digital breast tomosynthesis examination was performed with 2D and 3D acquisitions. Computer aided diagnosis was performed. COMPARISON: 01/21/2024 and older. BREAST COMPOSITION: There are scattered areas of fibroglandular density. FINDINGS: Mammography: Left breast conservation therapy changes are redemonstrated. Within the upper outer left breast anterior depth there is a small 3 mm mass. Further characterization with ultrasound was performed. No concerning finding in the right breast. ULTRASOUND: Targeted real-time ultrasound was performed on the upper outer left breast. At the 2:00 axis, 5 cm from the nipple there is an anechoic simple cyst measuring up to 3 mm. There is an additional cyst of the left breast at the 1-2 o'clock axis, 3 cm from the nipple just beneath the skin surface measuring 4 mm. us Sabrina Scott MD MAMMO ORDERABLES Final Result * MAMMO 3D MARTHA DIAGNOSTIC BILAT W OR WO CAD (01/26/2025 10:55 AM CLOTH NAPPING SUPERVISOR) Anatomical Region Laterality Modality Breast Bilateral Mammography 01/26/2025 10:5 5 AM CLOTH NAPPING SUPERVISOR Impressions 01/26/2025 11:27 AM CLOTH NAPPING SUPERVISOR IMPRESSION: No suspicious findings to suggest malignancy in either breast. Annual mammography is recommended. OVERALL FINAL ASSESSMENT: BI-RADS CATEGORY 2: Benign findings. DICTATION LOCATION: [facility] 01/26/2025 11:27 AM CLOTH NAPPING SUPERVISOR BILATERAL FULL-FIELD DIGITAL DIAGNOSTIC MAMMOGRAM WITH CAD WITH TOMOSYNTHESIS. Limited left breast ultrasound. DATE: 01/26/2025 10:55 AM HISTORY: Personal history of left breast cancer with conservation therapy 2023. TECHNIQUE: Full-field digital craniocaudal, mediolateral and mediolateral oblique projections of both breasts were obtained. Low-dose full-field digital breast tomosynthesis examination was performed with 2D and 3D acquisitions. Computer aided diagnosis was performed. COMPARISON: 01/21/2024 and older. BREAST COMPOSITION: There are scattered areas of fibroglandular density. FINDINGS: Mammography: Left breast conservation therapy changes are redemonstrated. Within the upper outer left breast anterior depth there is a small 3 mm mass. Further characterization with ultrasound was performed. No concerning finding in the right breast. ULTRASOUND: Targeted real-time ultrasound was performed on the upper outer left breast. At the 2:00 axis, 5 cm from the nipple there is an anechoic simple cyst measuring up to 3 mm. There is an additional cyst of the left breast at the 1-2 o'clock axis, 3 cm from the nipple just beneath the skin surface measuring 4 mm. us Sabrina Scott MD MAMMO ORDERABLES Final Result from Last 3 Months Insurance AET[employer] O [facility] AETNA O MCR
--- OUTSIDE RECORDS SUMMARY | 2025-02-24 10:37 | XMS_ITS | Encounter Summary ---
Author Organization [facility] Address [address] [place] [address] Care Team Providers Care Motel Operator Name Role Phone Luis Parrish MD Primary Care Provider + [phone] Encounter Details Date Type Department Care Team (Late st Contact Info) Description 08/20/2020 [place] Message Enc [facility] Medical Group Multispecialty Care - [facility] [address] [facility], [address] [place] [phone] Flex Smith MD [address] [place], [place] [phone] RE: Question Social History Tobacco Use Types [...] Assessment Author Status No 01/12/2020 2:53 PM CLINICAL MANAGER Activ e * RETIRED Are you blind or do you have serious difficulty seeing, even when wearing glasses? Answer Date of Assessment Author Status No 01/12/2020 2:53 PM CLINICAL MANAGER Activ e * Do you have serious [...] on filedocumented in this encounter Care Teams Motel Operator Relationship Specialty Start Date End Date Luis Parrish MD [address] [place] [address] PCP - General PEDIATRICS 01/06/20 documented as of this encounter
--- OUTSIDE RECORDS SUMMARY | 2025-02-24 10:37 | XMS_ITS | Encounter Summary ---
Author Organization [facility] Address [address] [place] [address] Care Team Providers Care Mailing Clerk Name Role Phone Luis Parrish MD Primary Care Provider + [phone] Encounter Details Date Type Department Care Team (Latest Contact Info) Description 01/20/2020 WhipCar Message Enc [facility] Medical Group Multispecialty Care - [facility] [address] [facility], [address] [place] [address] Merlene Lara APRN [address] [facility] [address] [place] [address] RE: Medication Questions Social History Tobacco Use [...] COVID-19? No / Unsure 01/19/2020 3:04 PM WEIGHT AND BALANCE CONTROL AGENT documented as of this encounter Functional Status * RETIRED Are you deaf or do you have serious difficulty hearing Answer Date of Assessment Author Status No 01/12/2020 2:53 PM WEIGHT AND BALANCE CONTROL AGENT Activ e * RETIRED Are you blind or do you have serious difficulty seeing, even when wearing glasses? Answer Date of Assessment Author Status No 01/12/2020 2:53 PM WEIGHT AND BALANCE CONTROL AGENT Activ e * Do you have serious difficulty walking or climbing stairs? Answer Date of Assessment Author Status No 01/12/2020 2:53 PM Jennifer Zambrano RN Active * Do you have difficulty dressing or bathing? Answer Date of Assessment Author Status No 01/12/2020 2:53 PM Jennifer Zambrnao RN Active * Because of a physical, [...] to contact insurance etc. Pt stated understanding. HT AND BALANCE CONTROL AGENT documented in this encounter Plan of Treatment Not on file documented as of this encounter Visit Diagnoses Not on filedocumented in this encounter Care Teams Mailing Clerk Relationship Specialty Start Date End Date Luis Parrish MD [address] [place] [address] PCP - General PEDIATRICS 01/06/20 documented as of this encounter
--- OUTSIDE RECORDS SUMMARY | 2025-02-24 10:37 | XMS_ITS | Clinical Summary ---
Author Organization [facility] Address [address] [place] [address] Care Team Providers Care Cranberry Sorter Name Role Phone Luis Parrish MD Primary Care Provider + [phone] Allergies Active Allergy Reactions Criticality Noted Date Comments Erythromycin Unknown 01/06/2011 Large [employer] Medications multivitamin tablet Take 1 tablet by [...] 37.1 C (98.7 F) 01/19/2020 3:17 PM MACHINE ENGRAVER Respiratory Rate 18 11/02/2020 1:16 PM CDT [...] this topic Medical Devices Implanted Type Area Straw Boss Device Identifier Shelf Expiration Date Model / Serial / Lot Graft Infuse Bone Small - [id number] Implanted:Qty: 1 on 01/12/2020 by Flex Smith MD at [facility] N/A: Spine Lumbar [employer] 12/06/2021 [id number] / / [id number] Progenix Plus Spinalgraft Putty 2.5cc - [id number] Implanted:Qty: 1 on 01/12/2020 by Flex Smith MD at [facility] N/A: Spine Lumbar [employer] 07/04/2021 [id number] / / [id number] 2 Hole Plate Implanted:Qty: 1 on 01/12/2020 by Flex Smith MD at [facility] N/A: Spine Lumbar [employer] 10/26/2027 [id number] / / [id number] Screw Implanted:Qty: 2 on 01/12/2020 by Flex Smith MD at [facility] N/A: Spine Lumbar [employer] 11/09/2027 [id number] / / [id number] Interbody Implanted:Qty: 1 on 01/12/2020 by Flex Smith MD at [facility] N/A: Spine Lumbar [employer] 11/01/2026 [id number] / / [id number] 6.5 X 45 Screw Implanted:Qty: 2 on 01/12/2020 by Flex Smith MD at [facility] N/A: Spine Lumbar [employer] [id number] / / 4.75 X 40 [place] Implanted:Qty: 1 on 01/12/2020 by Flex Smith MD at [facility] N/A: Spine Lumbar [employer] [id number] / / Voyager Set Screws Implanted:Qty: 2 on 01/12/2020 by Flex Smith MD at [facility] N/A: Spine Lumbar [employer] [id number] / / Procedures Procedure Name Priority Date/Time Associated Diagnosis Comments MG SCREENING W MARTHA MICHAEL DIGI Routine 02/19/2022 9:30 AM MACHINE ENGRAVER Encounter for screening mammogram for malignant neoplasm of breast COLONOSCOPY/EGD GENERIC (SCAN ORDER) 10/28/2017 HEPATITIS PANEL,ACUTE Routine 06/28/2014 8:40 AM CDT from Last 3 Months or Most Recently Relevant to Health Maintenance Results * MG SCREENING W MARTHA MICHAEL DIGI (02/19/2022 9:30 AM MACHINE ENGRAVER) Anatomical Region Laterality Modality Breast Bilateral Computed Tomogra phy, Other 02/19/2022 10:1 5 AM MACHINE ENGRAVER Narrative 02/19/2022 10:28 AM MACHINE ENGRAVER IMAGING STUDIES: Bilateral screening mammograms with computer-aided [...] CUTOFF 0.02 <1.00 [facility] TO EPIC CONVERSION Comment:WILNRE TERRAZAS DO ,MPH REPORT STATUS Not required [facility] TO EPIC CONVERSION Comment: THIS TEST WAS PERFORMED AT [facility] [address] [place] [address] 06/28/2014 8:40 AM CDT 06/28/2014 8:40 AM CDT Narrative [facility] TO EPIC CONVERSION - 06/29/2014 12:16 PM CDT This lab was migrated from [facility] and may be missing annotations or result text, please check the Media tab for the most complete results. us Luis Parrish MD LABORATORY Final Result [facility] TO EPIC CONVERSION from Last 3 Months or Most Recently Relevant to Health Maintenance Insurance MED [facility] MEDICARE Advance Directives Documents on File Type Date Recorded Patient Qa Software Test Engineer Expl anation Advance Directives and Living Will 01/14/2020 8:11 AM 08-08-2009 signed Alyssa Pitts, Oracle Database Manager for Health Care, MARIELLA Advance Directives and [...] 2:40 PM 01/13/2020 7:20 PM Care Teams Cranberry Sorter Relationship Specialty Start Date End Date Luis Parrish MD [address] [place] [address] PCP - General PEDIATRICS 01/06/20
--- OUTSIDE RECORDS SUMMARY | 2025-02-24 10:37 | XMS_ITS | Encounter Summary ---
Author Organization [facility] Address [address] [place] [address] Care Team Providers Care Spud Grader Name Role Phone Luis Parrish MD Primary Care Provider +[phone] Encounter Details Date Type Department Care Team (Late st Contact Info) Description 07/12/2020 MyChart Message Enc [facility] Medical Group Multispecialty Care - [facility] [address] [facility], [address] [place] [phone] Flex Smith MD [address] [place], [place] [phone] RE: Question Social History Tobacco Use Types [...] Assessment Author Status No 01/12/2020 2:53 PM STEREOTYPER Activ e * RETIRED Are you blind or do you have serious difficulty seeing, even when wearing glasses? Answer Date of Assessment Author Status No 01/12/2020 2:53 PM STEREOTYPER Activ e * Do you have serious difficulty walking or climbing stairs? Answer Date of Assessment Author Status No 01/12/2020 2:53 PM Jennifer Zamrbano RN Active * Do you have difficulty [...] on filedocumented in this encounter Care Teams Spud Grader Relationship Specialty Start Date End Date Luis Parrish MD [address] [place] [address] PCP - General PEDIATRICS 01/06/20 documented as of this encounter
--- OUTSIDE RECORDS SUMMARY | 2025-02-24 10:37 | XMS_ITS | Encounter Summary ---
Author Organization [facility] Address [address] [place] [address] Care Team Providers Care Refinery Operator Helper Crude Unit Name Role Phone Luis Parrish MD Primary Care Provider + [phone] Encounter Details Date Type Department Care Team (Late st Contact Info) Description 02/21/2020 [facility] Multispecialty Care - [facility] [address], [address] [place] [address] Merlene Lara, [place] [address] [facility] [address] [place] [address] RE: Question Social History Tobacco Use Types [...] COVID-19? No / Unsure 02/16/2020 11:36 AM CARGO HANDLER documented as of this encounter Functional Status * RETIRED Are you deaf or do you have serious difficulty hearing Answer Date of Assessment Author Status No 01/12/2020 2:53 PM CARGO HANDLER Activ e * RETIRED Are you blind or do you have serious difficulty seeing, even when wearing glasses? Answer Date of Assessment Author Status No 01/12/2020 2:53 PM CARGO HANDLER Activ e * Do you have serious [...] on filedocumented in this encounter Care Teams Refinery Operator Helper Crude Unit Relationship Specialty Start Date End Date Luis Parrish MD [address] [place] [id number] PCP - General PEDIATRICS 01/06/20 documented as of this encounter
--- OUTSIDE RECORDS SUMMARY | 2025-02-24 11:30 | XMS_ITS | Encounter Summary ---
Author Organization [facility] [employer] Address [address] [place] [address] Care Team Providers Care Oil Well Services Dispatcher Name Role Phone Unavailable Primary Care Provider Unavailabl e Encounter Details Date Type Department Care Team (Late st Contact Info) Description 02/24/2025 11:30 AM COUTURE ALTERATIONS DRESSMAKER Office Visit [facility] Oncology and Hematology - [place] [address] [place] [address] Oskar Avalos MD [address] [place] [address] Breast neoplasm, Tis (DCIS), left (Primary Dx) Social History Tobacco Use Types Packs/Day Years [...] on file Legal Sex Female 5:56 AM COUTURE ALTERATIONS DRESSMAKER Gender Identity Not on file Sexual Orientation Not on file documented as of this encounter Last Filed Vital Signs Vital Sign Reading Time Taken Comments Blood Pressure 153/95 02/24/2025 10:24 AM COUTURE ALTERATIONS DRESSMAKER Pulse 81 02/24/2025 10:21 AM COUTURE ALTERATIONS DRESSMAKER Temperature 36.6 C (97.8 F) 02/24/2025 10:21 AM COUTURE ALTERATIONS DRESSMAKER Respiratory Rate 15 02/24/2025 10:21 AM COUTURE ALTERATIONS DRESSMAKER Oxygen Saturation 96% 02/24/2025 10:21 AM COUTURE ALTERATIONS DRESSMAKER Inhaled Oxygen Concentration - - Weight 73.5 kg (162 lb) 02/24/2025 10:21 AM COUTURE ALTERATIONS DRESSMAKER Height - - Body Mass Index 25 01/26/2025 11:34 AM COUTURE ALTERATIONS DRESSMAKER documented in this encounter Plan of Treatment Upcoming Encounters Date Type Department Care Team (Late st Contact Info) Description 02/06/2026 10:30 AM COUTURE ALTERATIONS DRESSMAKER Appointment [facility] [address] [place] [address] [place] [address] [place] [address] 02/06/2026 11:30 AM COUTURE ALTERATIONS DRESSMAKER Office Visit [facility] Breast Surgery [address] [place] [address] [place] [address] [place] [address] Scheduled Orders Name Type Priority Associated Diagnoses Orde r Schedule CBC WITH DIFFERENTIAL Lab Stat Breast neoplasm, Tis (DCIS), left Expected: 08/25/2025, Expires: 02/24/2026 COMPREHENSIVE METABOLIC PANEL Lab Stat Breast neoplasm, Tis (DCIS), left Expected: 08/25/2025, Expires: 02/24/2026 documented as of this encounter Visit Diagnoses Diagnosis Breast neoplasm, Tis (DCIS), left- Primary documented in this encounter
[2025-02-24 12:44] LABS: Alanine Aminotransferase 19 U/L (6-35); Albumin Level 3.8 g/dL (3.5-5.1); Alkaline Phosphatase 60 U/L (38-126); Anion Gap 7 mmol/L (4-12); Aspartate Amino Transferase 43 U/L (14-36); Bilirubin,Total 0.4 mg/dL (0.2-1.3); Blood Urea Nitrogen 12 mg/dL (7-17); Calcium 9.1 mg/dL (8.4-10.2); Carbon Dioxide 27 mmol/L (22-30); Chloride 105 mmol/L (98-107); Estimated Glomerular Filt Rate > 60; Glucose 80 mg/dL (65-110); Potassium 3.8 mmol/L (3.4-5.0); Sodium 139 mmol/L (137-145); Total Protein 6.7 g/dL (6.3-8.2)
[2025-02-27 16:01] LABS: Blood Urea Nitrogen 11 mg/dL (8-26); Carbon Dioxide 26 mmol/L (22-30); Chloride 104 mmol/L (98-109); Estimated Glomerular Filt Rate > 60; Glucose 84 mg/dL (70-105); Ionized Calcium (POC) 1.22 mmol/L (1.11-1.31); Potassium 3.8 mmol/L (3.5-4.9); Sodium 141 mmol/L (138-146)
== END 2025-02-24 10:06 | disposition home or self-care (01) ==
PROVIDERS: PCP Physician Assistant; Visit Provider Internal Medicine Hematology & Oncology
DX: D05.12 Intraductal carcinoma in situ of left breast (principal)
CPT/HCPCS: 36415; 80047; 80053; 85025